=== PATIENT | male | born 1960 | race Caucasian/White ===

== ENCOUNTER → 2019-09-15 | Outpatient (CLI) | payer BC ==
--- NOTE | 2019-09-15 09:44 | FL ---
Barium swallow HISTORY: Dysphagia Patient was given high density barium to drink. 16 images obtained, 1 minute 1 second fluoroscopy time The esophageal motility and shows disorganized contractions, there is no obstruction at the level of the patient's gastric sleeve. Degenerative disc changes are noted in the cervical spine. No extrinsic or intrinsic mass is evident. Some reflux from the distal esophagus noted during exam into the more proximal esophagus. Narrowing at the midthoracic esophagus is not thought to persist. IMPRESSION: Disorganized esophageal contractions.
== END | disposition home or self-care (01) ==
LOC: RADUSWWP 08:46
PROVIDERS: ATTEND Family Medicine
DX: K22.8 Other specified diseases of esophagus (principal)
CPT/HCPCS: 74220

== ENCOUNTER 2019-10-02 09:41 | Observation (INO) | payer BC ==
[2019-10-02] MEDS ORDERED: ASPIRIN 81 MG PO STA (10:05)
[2019-10-02] MEDS ORDERED: NITROGLYCERIN SL TABS 0.4 MG TAB SUBLINGUAL STA (10:05)
[2019-10-02] MEDS ORDERED: SODIUM CHLORIDE 0.9% 1,000 ML IV STA (10:05)
[2019-10-02 10:23] LABS: Basophils % (A) 0 %; Eosinophils # (A) 0.3 k/uL (0-0.7); Eosinophils % (A) 3 %; HCT 49.1 % (39.0-53.0); HGB 15.8 gm/dL (13.0-17.5); Lymphocytes # (A) 1.3 k/uL (1.0-4.8); Lymphocytes % (A) 13 %; MCH 28.9 pg (25.0-35.0); MCHC 32.2 g/dL (31.0-37.0); Mean Platelet Volume 7.8; Monocytes # (A) 0.6 k/uL (0-1.0); Monocytes % (A) 6 %; Neutrophils # (A) 7.4 k/uL (1.3-7.7); Neutrophils % (A) 76 %; Platelet Count 183 k/uL (150-450); RBC 5.46 m/uL (4.30-5.90); RDW 13.8 % (11.5-15.5); WBC 9.8 k/uL (3.8-10.6)
[2019-10-02] MEDS ORDERED: MORPHINE SULFATE 2 MG/ML SYRINGE IVP STA (10:25)
--- NOTE | 2019-10-02 10:31 | ED ---
Chest Pain HPI - General Chief Complaint: Chest Pain Stated Complaint: Chest Pain Time Seen by Provider: 10/02/19 09:52 Source: patient, RN notes reviewed, old records reviewed Mode of arrival: wheelchair Limitations: no limitations - History of Present Illness Initial Comments: Morales is a 59-year-old male history of hypertension and smoker presents for his friends today with onset of chest discomfort and pain on bilateral arms turning half hour prior to arrival to emergency department. Patient states that he's had positive family history of heart disease. He states he's had no previous known history himself. Patient states that he has no history of diabetes or cholesterol problems. Patient states that he has no significant nausea or abdominal pain. Reports no coughing. - Related Data Allergies Allergy/AdvReac Type Severity Reaction Status Date / Time No Known Allergies Allergy Verified 10/02/19 09:49 Review of Systems ROS Statement: Those systems with pertinent positive or pertinent negative responses have been documented in the HPI. ROS Other: All systems not noted in ROS Statement are negative. EKG Findings - EKG Comments: EKG Findings:: EKG performed at 953 shows normal sinus rhythm left axis deviation. Nonspecific ST and T abnormalities. Prolonged QT. Abnormal EKG. Ventricular rate of 91 bpm. Verbal is 188 ms. QRS ration is 94 ms. QT QTc is 398/49 ms. Past Medical History Past Medical History: Hypertension History of Any Multi-Drug Resistant Organisms: None Reported Past Surgical History: Appendectomy, Bariatric Surgery, Hernia Repair Additional Past Surgical History / Comment(s): gastric sleeve Past Psychological History: No Psychological Hx Reported Smoking Status: Current every day smoker Past Alcohol Use History: Occasional Past Drug Use History: Marijuana General Exam - General Exam Comments Initial Comments: Asians morbidly obese 59-year-old male. Patient appears in [id number] discomfort. Limitations: no limitations General appearance: alert, in no apparent distress Head exam: Present: atraumatic, normocephalic, normal inspection Eye exam: Present: normal appearance, PERRL, EOMI. Absent: scleral icterus, conjunctival injection, periorbital swelling ENT exam: Present: normal exam, mucous membranes moist Neck exam: Present: normal inspection. Absent: tenderness, meningismus, lymphadenopathy Respiratory exam: Present: wheezes, other (wheezing). Absent: normal lung sounds bilaterally, respiratory distress, rales, rhonchi, stridor Cardiovascular Exam: Present: regular rate, normal rhythm, normal heart sounds. Absent: systolic murmur, diastolic murmur, rubs, gallop, clicks GI/Abdominal exam: Present: soft, normal bowel sounds. Absent: distended, tenderness, guarding, rebound, rigid Extremities exam: Present: normal inspection, full ROM, normal capillary refill. Absent: tenderness, pedal edema, joint swelling, calf tenderness Back exam: Present: normal inspection Neurological exam: Present: alert, oriented X3, CN II-XII intact Psychiatric exam: Present: normal affect Skin exam: Present: warm, dry, intact, normal color. Absent: rash Course Vital Signs 10/02/19 09:45 Temperature 98.3 F Pulse Rate 89 Respiratory 18 Rate Blood Pressure 178/95 O2 Sat by Pulse 96 Oximetry Chest Pain [facility] Patient's 59-year-old male presents for return and stay with one hour of substernal chest pain free Patient on both arms starting 30 minutes prior to arrival to the emergency department. He is morbidly obese, smoker with a history of hypertension. Patient's initial EKG did show some ST changes. Is given IV fluids, aspirin and nitro. He did report relief of the chest pain with nitro. He does have diffuse wheezing with a history of smoking and discuss likely chronic. At this time Patient has no cough. Patient started on IV heparin and nitro paste with chest pain relieved with nitro concern for unstable angina. Pj the Patient to [facility] physician with consult to cardiology. Chest x-ray shows diffuse interstitial density. Correlate for bronchitis chronic asthma or atypical pneumonias. No focal infiltrate. Repeat EKG at 10:26 AM showed normal sinus rhythm with left anterior fascicular block. Once ST and T-wave abnormality prolonged QT. Ventricular rate of 85 bpm. NE intervals 184 ms. QRS duration is 92 ms. QT QTc is 44/480 ms. Secondary repeat EKG at 1051 showed normal sinus rhythm with left axis deviation of specific T wave abnormality again. The degree of 80 bpm. Verbal is 172 ms. Temperature shows 90 ms. QT QTc is 420/4 and 93 ms. Critical Care Time Critical Care Time: Yes Total Critical Care Time: 35 Critical Care Time: 35 minutes of critical care time was used by vitamin Patient interpreting EKG is instructed Patient on IV heparin for unstable angina. Disposition Clinical Impression: Unstable angina, Hypertension, Smoker, Wheezing Disposition: ADMITTED IP TO THIS HOSP Condition: Stable Is patient prescribed a controlled substance at d/c from ED?: No Referrals: Elsa Wadsworth MD [Primary Care Provider] - 1-2 days Time of Disposition: 11:27
[2019-10-02 10:32] LABS: ALT 18 U/L (4-49); AST 21 U/L (17-59); African American GFR (CKD) >90 (>60 ml/min/1.73 sqM); Albumin 3.9 g/dL (3.5-5.0); Alkaline Phosphatase 104 U/L (38-126); Amylase 50 U/L (30-110); Anion Gap 5 mmol/L; Blood Urea Nitrogen 24 mg/dL (9-20); Calcium 8.7 mg/dL (8.4-10.2); Carbon Dioxide 31 mmol/L (22-30); Chloride 104 mmol/L (98-107); Glucose 117 mg/dL (74-99); INR 0.9 (<1.2); Non-African American GFR(CKD) >90 (>60 ml/min/1.73 sqM); Potassium 3.9 mmol/L (3.5-5.1); Prothrombin Time 9.7 sec (9.0-12.0); Sodium 140 mmol/L (137-145); Total Bilirubin 0.7 mg/dL (0.2-1.3); Total Protein 6.9 g/dL (6.3-8.2)
--- NOTE | 2019-10-02 10:54 | XR ---
EXAMINATION TYPE: XR chest 2V DATE OF EXAM: 10/02/2019 COMPARISON: None HISTORY: 59-year-old male with chest pain TECHNIQUE: PA and lateral views FINDINGS: The heart is upper limits of normal in size. Mild interstitial density. No consolidation or pleural e ffusion. IMPRESSION: Diffuse interstitial density. Correlate for bronchitis, chronic asthma, or atypical pneumonias. No fo niru infiltrate.
[2019-10-02] MEDS ORDERED: NITROGLYCERIN SL TABS 0.4 MG TAB SUBLINGUAL PRN ×3 (10:56→20:31)
[2019-10-02] MEDS ORDERED: HEPARIN SODIUM,PORCINE 5,000 UNIT/ML 1 ML VIAL IV ONE (10:56)
[2019-10-02] MEDS ORDERED: HEPARIN SOD,PORK IN 0.45% NACL 25,000 UNIT in 0.45% NACL 1 250ML.BAG IV SCH (11:00)
[2019-10-02] MEDS ORDERED: NITROGLYCERIN OINT 1 INCH/GM PACKET TOPICAL STA (11:17)
[2019-10-02] MEDS ORDERED: MORPHINE SULFATE 4 MG/ML SYRINGE IV PRN (11:28)
--- NOTE | 2019-10-02 13:28 | P.HPIM ---
History of Present Illness This is a pleasant 59 years old male with past medical history of hypertension and cigarette smoker and marijuana smoker. Presents because of chest pain Also patient has no shortness of breath Hemodynamically stable. Labs including CBC, BMP, liver enzymes, INR are unremarkable. Troponins first one is negative at less than 0.012, second troponin is elevated at 0.047 EKG showing normal sinus rhythm at 80 bpm, mild ST depression in V1-V3, QTC 493. Chest x-ray: No acute process. However there is diffuse interstitial density study correlated for bronchitis, chronic asthma, atypical pneumonia. No focal infiltrates He is already started on aspirin 325 mg and heparin drip. Review of Systems CONSTITUTIONAL: No fever, no malaise, no fatigue. HEENT: No recent visual problems or hearing problems. Denied any sore throat. CARDIOVASCULAR: No orthopnea, PND, no palpitations, no syncope. PULMONARY: No shortness of breath, no cough, no hemoptysis. GASTROINTESTINAL: No diarrhea, no nausea, no vomiting, no abdominal pain. Normoactive bowel sounds. NEUROLOGICAL: No headaches, no weakness, no numbness. HEMATOLOGICAL: Denies any bleeding or petechiae. GENITOURINARY: Denies any burning micturition, frequency, or urgency. MUSCULOSKELETAL/RHEUMATOLOGICAL: Denies any joint pain, swelling, or any muscle pain. ENDOCRINE: Denies any polyuria or polydipsia. Past Medical History Past Medical History: Hypertension History of Any Multi-Drug Resistant Organisms: None Reported Past Surgical History: Appendectomy, Bariatric Surgery, Hernia Repair Additional Past Surgical History / Comment(s): gastric sleeve Past Psychological History: No Psychological Hx Reported Smoking Status: Current every day smoker Past Alcohol Use History: Occasional Past Drug Use History: Marijuana Medications and Allergies Home Medications Medication Instructions Recorded Confirmed Type Losartan/Hydrochlorothiazide 1 tab PO HS 10/02/19 10/02/19 History [Losartan-Hctz 100-25 mg Tab] Omeprazole 40 mg PO HS 10/02/19 10/02/19 History Verapamil HCl [Verapamil ER] 120 mg PO DAILY 10/02/19 10/02/19 History Allergies Allergy/AdvReac Type Severity Reaction Status Date / Time No Known Allergies Allergy Verified 10/02/19 11:39 Physical Exam Vitals: Vital Signs Temp Pulse Resp BP BP Pulse Ox 10/02/19 12:00 97.7 F 16 145/89 97 10/02/19 11:42 98.3 F 73 18 130/67 95 10/02/19 10:49 73 18 130/67 95 10/02/19 09:49 18 10/02/19 09:45 98.3 F 89 18 178/95 96 Intake and Output 10/01/19 10/02/19 10/02/19 22:59 06:59 14:59 Intake Total 400 Balance 400 Intake: Oral 400 Other: Weight 167.829 kg -GENERAL: The patient is alert and oriented x3, not in any acute distress. Obese HEENT: Pupils are round and equally reacting to light. EOMI. No scleral icterus. No conjunctival pallor. Normocephalic, atraumatic. No pharyngeal erythema. No thyromegaly. CARDIOVASCULAR: S1 and S2 present. No murmurs, rubs, or gallops. PULMONARY: Chest is clear to auscultation, no wheezing or crackles. ABDOMEN: Soft, nontender, nondistended, normoactive bowel sounds. No palpable organomegaly. MUSCULOSKELETAL: No joint swelling or deformity. EXTREMITIES: No cyanosis, clubbing, or pedal edema. NEUROLOGICAL: Gross neurological examination did not reveal any focal deficits. SKIN: No rashes. No petechiae Results CBC & Chem 7: 10/02/19 09:53 10/02/19 09:53 Labs: Abnormal Lab Results - Last 24 Hours (Table) 10/02/19 10/02/19 Range/Units 09:53 11:55 Carbon Dioxide 31 H (22-30) mmol/L BUN 24 H (9-20) mg/dL Glucose 117 H (74-99) mg/dL Troponin I 0.047 H* (0.000-0.034) ng/mL Thrombosis Risk Factor Assmnt - Choose All That Apply Each Factor Represents 1 point: Obesity (BMI >25) Other Risk Factors: No Other congenital or acquired thrombophilia - If yes, enter type in comment: No Thrombosis Risk Factor Assessment Total Risk Factor Score: 1 Thrombosis Risk Factor Assessment Level: Low Risk Assessment and Plan Assessment: Non-STEMI Nicotine dependence Morbid obesity Substance abuse including marijuana Morbid obesity with BMI 51 Plan: This is a pleasant 59 years old male who presents with non-STEMI, also with re active bronchitis versus atypical pneumonia. Continue with heparin drip, continue with aspirin, cardiology consult Who are aware of the patient. Patient counseled about quit smoking, he declined nicotine patch. Labs and medication were reviewed.. Continue same treatment. Continue with symptomatic treatment. Resume home medication. Monitor lytes and vitals. DVT and GI prophylaxis. Further recommendations of the clinical course of the patient DVT prophylaxis: heparin GI Prophylaxis: Pepcid Prognosis is guarded
[2019-10-02] MEDS ORDERED: DOXYCYCLINE 100 MG CAP PO SCH (13:30)
[2019-10-02] MEDS ORDERED: SODIUM CHLORIDE 0.9% 1,000 ML in EMPTY BAG 1 BAG IV ONE (14:10)
[2019-10-02] MEDS ORDERED: ATORVASTATIN 80 MG TAB PO STA (14:10)
[2019-10-02] MEDS ORDERED: ALPRAZolam 0.5 MG TAB PO PRN (14:10)
[2019-10-02] MEDS ORDERED: ASPIRIN 325 MG TAB PO STA (14:10)
[2019-10-02] MEDS ORDERED: ALPRAZolam 0.25 MG TAB PO PRN (14:10)
[2019-10-02] MEDS: IPRATROPIUM-ALBUTEROL 3 ML NEB INHALATION PRN (14:34)
[2019-10-02] MEDS ORDERED: ACETAMINOPHEN TAB 325 MG TAB PO PRN (14:34)
[2019-10-02 14:37] LABS: Cholesterol 138 mg/dL (<200); HDL Cholesterol 31 mg/dL (40-60); LDL Cholesterol,Calculated 95 mg/dL (0-99); Triglycerides 62 mg/dL (<150)
[2019-10-02] MEDS ORDERED: NITROGLYCERIN OINT 1 INCH/GM PACKET TOPICAL SCH (16:00)
[2019-10-02] MEDS ORDERED: HEPARIN SODIUM,PORCINE 5,000 UNIT/ML 1 ML VIAL IV PRN (18:24)
[2019-10-02 18:48] LABS: Glucose,Whole Blood 109 mg/dL (75-99)
[2019-10-02] MEDS ORDERED: HEPARIN SODIUM 1,000 UN/ML (10ML VL) ONE (19:06)
[2019-10-02] MEDS ORDERED: fentaNYL (PF) 50 MCG/ML 2 ML AMP ONE (19:06)
[2019-10-02] MEDS ORDERED: VERAPAMIL 2.5 MG/ML 2 ML AMP ONE (19:06)
[2019-10-02] MEDS ORDERED: MIDAZOLAM 2 MG/2 ML VIAL IVP ONE (19:13)
[2019-10-02] MEDS ORDERED: fentaNYL (PF) 50 MCG/ML 2 ML AMP IVP ONE (19:13)
[2019-10-02] MEDS ORDERED: LIDOCAINE 1% INJ 10MG/ML (20 ML MDV) SQ ONE (19:13)
[2019-10-02] MEDS ORDERED: IV FLUID CONTINUATION 400 ML IV ONE (19:13)
[2019-10-02] MEDS ORDERED: TICAGRELOR 90 MG TAB ONE (19:29)
[2019-10-02] MEDS ORDERED: BIVALIRUDIN 250 MG in SODIUM CHLORIDE 0.9% 50 ML IV ONE ×2 (19:32→19:37)
[2019-10-02] MEDS ORDERED: TICAGRELOR 90 MG TAB PO ONE (19:32)
[2019-10-02] MEDS ORDERED: BIVALIRUDIN BOLUS 250 MG/50 ML IV ONE (19:32)
[2019-10-02] MEDS ORDERED: IOPAMIDOL-370 100ML BTL INJ ONE ×3 (20:00→20:17)
[2019-10-02] MEDS ORDERED: IOPAMIDOL-370 125ML BTL INJ ONE (20:00)
[2019-10-02] MEDS ORDERED: RX INFO: IV CONTRAST WAS GIVEN 1 EACH MISC MISCELLANE PRN (20:31)
[2019-10-02] MEDS ORDERED: MAG HYDROX/AL HYDROX/SIMETH 30 ML CUP PO PRN (20:31)
[2019-10-02] MEDS ORDERED: ATROPINE SULFATE 0.1 MG/ML 10ML SYRINGE IV PRN (20:31)
[2019-10-02] MEDS ORDERED: ZOLPIDEM 5 MG TAB PO PRN (20:31)
[2019-10-02] MEDS ORDERED: SODIUM CHLORIDE 0.9% 1,000 ML IV SCH (20:45)
[2019-10-02] MEDS ORDERED: PANTOPRAZOLE 40 MG TABLET PO SCH (21:00)
[2019-10-02] MEDS: METOPROLOL TARTRATE 25 MG TAB PO SCH (21:40)
[2019-10-02] MEDS: LOSARTAN 50 MG TAB PO SCH (21:41)
[2019-10-02] MEDS: FAMOTIDINE 20 MG/2 ML VIAL IV SCH (21:41)
[2019-10-02] MEDS: TICAGRELOR 90 MG TAB PO SCH (21:41)
--- NOTE | 2019-10-03 00:55 | CONS ---
CONSULTATION Mr. Martinez is a 59-year-old male with known history of hypertension, chronic tobacco use, who presented to the emergency room with symptoms of chest discomfort. The discomfort occurred at rest without any associated symptoms and without any radiation. His discomfort is much better at this time. He is average in his exercise tolerance, has no exertional chest pain on a regular basis. His breathing has been stable. He has no dizziness, palpitation, or syncope. No PND, orthopnea, or peripheral edema. He has no prior cardiac history or recent cardiac workup. He has symptoms of wheezing and he is scheduled to undergo upper endoscopy for further evaluation. His coronary risk factors are remarkable for hypertension. He is a smoker about 3/4 of a pack a day. MEDICATION: His medications at home include verapamil 120 mg daily, losartan HCT 100/25 mg daily, and omeprazole. REVIEW OF SYSTEMS: RESPIRATORY SYSTEM: He has wheezing. No recent cough. No documented obstructive lung disease. GI SYSTEM: No recent GI bleeding. No peptic ulcer disease. SYSTEM: No dysuria or hematuria. NERVOUS SYSTEM: No stroke or seizure. PHYSICAL EXAMINATION: A 59-year-old male, alert, oriented, in no apparent distress, obese. Blood pressure running in the 130s to 170s with the heart rate in the 70s. HEAD: Normocephalic. EYES: Sclerae anicteric. NECK: Good carotid upstroke. No bruit. No jugular venous distention. LUNGS: With decreased air exchange, no wheezes. HEART: Regular rate and rhythm. S1, S2. No S3. No rub with a systolic ejection murmur heard at the base. No diastolic murmur. ABDOMEN: Soft, obese, nontender. EXTREMITIES: No significant edema. LAB DATA: Lab data revealed a BUN and creatinine 24 and 0.85, potassium 3.9. Troponin less than 0.012, 0.047. NT proBNP of 70. Hemoglobin of 15.8, white blood cell of 9.8. EKG revealed a sinus mechanism normal axis and intervals with ST-segment depression in leads V2, V3 and V4 with mild T-wave inversion. Chest x-ray shows probable bronchitis. IMPRESSION: 1. Evidence of non ST-segment elevation myocardial infarction, could be in the left circumflex territory. 2. History of hypertension. 3. Obesity. 4. Chronic tobacco use. RECOMMENDATION: I have recommended to proceed with cardiac catheterization. The procedure as well as the risks and the complications were discussed with the patient and his and they are in full understanding and agreement. The patient just had lunch and his discomfort almost resolved. I will tentatively schedule him for tomorrow unless he has further symptoms. In the meantime, I will obtain echocardiogram with Doppler. He will be continued on IV heparin. I will add to his regimen nitrate, beta lesli, and statin and he will be continued on his angiotensin receptor lesli. Depending on the results of testing, further recommendation will be made. Thank you for this consult. We will follow with you. DENNISL / IJN: [id number] /
--- NOTE | 2019-10-03 02:58 | CC ---
CARDIAC CATHETERIZATION REPORT Mr. Martinez is a 59-year-old male with known history of chronic tobacco use as well as hypertension, who presented with symptoms of chest pain and evidence of non ST- segment elevation myocardial infarction. He had recurrent pain. In view of that, recommendation was made regarding cardiac catheterization. The procedure as well as the risks and the complications were discussed with the patient who is in full understanding and agreement. PROCEDURE: Patient was brought to the recyclable materials distributor. He was in a semi-sedated state after receiving fentanyl and Benadryl. He was prepped and draped in conventional fashion. Using Xylocaine anesthesia in the Seldinger technique, a 6-Congolese sheath was introduced in the right radial artery. Selective right and left coronary angiography performed using 5-Congolese, 3.5 bend right Racheal catheter and a 6-Congolese FL3.5 guiding catheter. Images of the coronary artery including hemiaxial views obtained. Following that, angioplasty and stenting was performed. Following that, the guide catheter was introduced into the left ventricle and pressures were calculated. Following that, catheter and sheaths were removed. Hemostasis was obtained with deployment of a TR band. There was no immediate complication. Patient was returned to his room in stable condition. There was no immediate complication. Of note, the patient received intra- arterial verapamil. FINDINGS: LEFT MAIN: This is a large-sized vessel bifurcating in left circumflex, left anterior descending artery. Left main coronary artery has no evidence of high-grade stenosis. LEFT ANTERIOR DESCENDING ARTERY: This is a large-sized vessel reaching to the apex with a wraparound apex segment giving rise to a large diagonal branch. Right at the takeoff of the diagonal branch, there is a 90% eccentric lesion. The rest of the vessel has no high-grade stenosis. LEFT CIRCUMFLEX: This is a large nondominant vessel giving rise to 2 obtuse marginal branches. The second obtuse marginal branch has a long area of stenosis up to 99%. The rest of the vessel has no high-grade stenosis. RIGHT CORONARY ARTERY: This is a large dominant vessel tortuous bifurcating distally PDA and posterolateral segment and branches. The mid right coronary artery has an eccentric lesion of 50% to 60%. The rest of the vessel has no high-grade stenosis. LEFT VENTRICULOGRAM: Left ventriculogram is not performed. HEMODYNAMICS: There was no gradient across the aortic valve. The left ventricular end- diastolic pressure was 14 to 16 mmHg. CONCLUSION: 1. Critical stenosis in the second obtuse marginal branch. 2. Severe stenosis in the mid left anterior descending artery. 3. Moderate disease in the mid right coronary artery. RECOMMENDATION: In view of finding anatomy, I recommend proceeding with angioplasty and stenting of the left circumflex and the LAD. The procedures, risks, and complications were discussed with the patient, who was in full understanding and agreement. MMJACK / GAYN: [id number] / MTDKatt
--- NOTE | 2019-10-03 03:01 | PTCA ---
PERCUTANEOUSTRANS CORORONARY ANGIOGRAPHY Mr. Martinez is a 59-year-old male who presented with non ST-segment elevation myocardial infarction, had recurrent chest discomfort. In view of that, recommendation was made regarding angioplasty and stenting. The procedure as well as the risks and the complications were discussed with the patient who is in full understanding and agreement. PROCEDURE: Using the 6-Bruneian FL3.5 guiding catheter after cannulating the left main, a 0.014 balanced medium weight J-wire was advanced and positioned in first obtuse marginal branch and another 0.014 balanced medium weight J-wire was advanced and positioned in the second obtuse marginal branch. Subsequently, a 2.5 x 12 mm Trek balloon was advanced and 2 inflations at 8 atmospheres were done. Following that, the balloon was removed and a 2.25 x 23 mm Xience Rosa stent was advanced, deployed and postdilated at 16 atmospheres. Following that, the balloon was removed and a 2.75 x 15 mm NC Emerge balloon was advanced and inflation of proximal segment of the stent at a maximum of 14 atmospheres was done. Following that, the balloon was removed. Images were obtained, repeated. Those images reveal stable successful stenting. At that point, the wire was withdrawn and advanced into the LAD and positioned in distal LAD and a 3.5 x 15 mm Xience Rosa stent was advanced, deployed and postdilated to 16 atmospheres. Following that, the balloon was removed and a 4.0 x 12 mm NC Emerge balloon was advanced and one inflation at 14 atmospheres was done. After the last inflation, after appropriate wait, the balloon and guide wire withdrawn back in the guiding catheter. Images were obtained, repeated. Those images reveal stable successful stenting. At that point, the guiding catheter, the balloon and the guidewire were removed. Left ventricular end- diastolic pressure was calculated using the guiding catheter. Following that, catheter and sheath were removed. Hemostasis was obtained with deployment of a TR band. There was no immediate complication. Patient was returned to his room in stable condition. Of note, the patient had chest discomfort and EKG changes with the LAD inflation that resolved at the end of the procedure. He received Angiomax per protocol as well as oral loading dose of Brilinta. RESULTS: 1. Successful stenting of the second obtuse marginal branch with reduction of stenosis from 99% to 0%. 2. Successful stenting of the mid left anterior descending artery with reduction of stenosis from 90% to less than 5%. RECOMMENDATIONS: Patient will be continued on aspirin, Brilinta, statin and beta lesli. The importance of dual antiplatelet treatment was discussed with the patient and his family and are in full understanding and agreement. Duration of procedure is 70 minutes. BALBINA / ANAI: [id number] /
[2019-10-03] MEDS: IPRATROPIUM-ALBUTEROL 3 ML NEB INHALATION PRN ×2 (06:10→10:55)
--- NOTE | 2019-10-03 07:28 | PN ---
PROGRESS NOTE Mr. Martinez is a 59-year-old male who presented with symptoms of chest discomfort and evidence of non ST-segment elevation myocardial infarction, underwent cardiac catheterization was found to have critical stenosis in the obtuse marginal branch 2 and the mid LAD, underwent stenting of both vessels. He had moderate disease in the right coronary artery. He is doing well this morning. He is denying any chest pain. No dizziness. No palpitation. His breathing is stable. He continued to be on aspirin once a day, Brilinta 90 mg twice a day, Lipitor 40 mg daily, losartan 50 mg twice a day and metoprolol tartrate 25 mg twice a day. PHYSICAL EXAMINATION: Blood pressure 134/80 with the heart rate in the 70s. LUNGS: Clear. HEART: Regular rate and rhythm. S1, S2. No S3. No rub. ABDOMEN: Soft, obese, nontender. EXTREMITIES: Trace edema. Right radial pulse intact. LAB DATA: Pending. IMPRESSION: 1. Status post non ST-segment elevation myocardial infarction. 2. Status post stenting of the obtuse marginal branch 2 and the mid LAD with moderate disease in the right coronary artery. 3. Hypertension. 4. Chronic tobacco use. 5. Obesity. RECOMMENDATION: Patient will be discharged home today and followed as an outpatient. The importance of smoking cessation as well as weight loss was discussed with the patient. MMOMAYRAL / GAYN: [id number] /
[2019-10-03 08:03] VITALS: TEMP 98.2
[2019-10-03 08:36] LABS: African American GFR (CKD) >90 (>60 ml/min/1.73 sqM); Anion Gap 4 mmol/L; Blood Urea Nitrogen 17 mg/dL (9-20); Calcium 8.5 mg/dL (8.4-10.2); Carbon Dioxide 30 mmol/L (22-30); Chloride 104 mmol/L (98-107); Cholesterol 118 mg/dL (<200); Glucose 108 mg/dL (74-99); HDL Cholesterol 29 mg/dL (40-60); LDL Cholesterol,Calculated 70 mg/dL (0-99); Non-African American GFR(CKD) >90 (>60 ml/min/1.73 sqM); Potassium 3.9 mmol/L (3.5-5.1); Sodium 138 mmol/L (137-145); Triglycerides 94 mg/dL (<150)
[2019-10-03] MEDS: METOPROLOL TARTRATE 25 MG TAB PO SCH (08:48)
[2019-10-03] MEDS: FAMOTIDINE 20 MG/2 ML VIAL IV SCH (08:49)
[2019-10-03] MEDS: LOSARTAN 50 MG TAB PO SCH (08:49)
[2019-10-03] MEDS: TICAGRELOR 90 MG TAB PO SCH (08:49)
[2019-10-03] MEDS ORDERED: ASPIRIN 81 MG PO SCH (09:00)
[2019-10-03] MEDS ORDERED: ATORVASTATIN 40 MG TAB PO SCH (09:00)
[2019-10-03] MEDS ORDERED: ASPIRIN 325 MG TAB PO SCH (09:00)
--- NOTE | 2019-10-03 10:16 | ECHOF ---
Referral Reason:mi MEASUREMENTS -------- HEIGHT: 182.9 cm WEIGHT: 167.8 kg BP: 134/88 IVSd: 1.3 cm (0.6 - 1.1) LVIDd: 5.2 cm (3.9 - 5.3) LVPWd: 1.5 cm (0.6 - 1.1) EDV(Teich): 131 ml IVSs: 1.8 cm LVIDs: 5.0 cm LVPWs: 1.7 cm %IVS Thck: 34 % ESV(Teich): 120 ml EF(Teich): 8 % %FS: 4 % SV(Teich): 11 ml MV EXCURSION: 19.089 mm (> 18.000) MV EF SLOPE: 81 mm/s (70 - 150) EPSS: 0.9 cm MV E Charanjit: 0.60 m/s MV DecT: 182 ms MV Dec [place]: 3.3 m/s MV A Charanjit: 0.76 m/s MV E/A Ratio: 0.79 MV PHT: 53 ms FINDINGS -------- Morbid Obesity The left ventricular size is normal. There is mild concentric left ventricular hypertrophy. Overa ll left ventricular systolic function is mild-moderately impaired with, an EF between 40 - 45 %. Po sterior hypokinesis Inferior Hypokinesis The right ventricle is normal in size. The left atrial size is normal. The right atrial size is normal. 5.0mg OF Lumason UTLIZED: 2 OR MORE WALL SEGMENTS NOT VISUALIZED. The aortic valve was not well visualized. Mild mitral regurgitation is present. The tricuspid valve was not well visualized. Unable to estimate RVSP due to inadequate TR jet spect ral doppler profile. The pulmonic valve was not well visualized. The aortic root size is normal. There is no pericardial effusion. CONCLUSIONS -------- 1. Morbid Obesity 2. The left ventricular size is normal. 3. There is mild concentric left ventricular hypertrophy. 4. Overall left ventricular systolic function is mild-moderately impaired with, an EF between 40 - 45 %. 5. Posterior hypokinesis 6. Inferior Hypokinesis 7. The right ventricle is normal in size. 8. The left atrial size is normal. 9. The right atrial size is normal. 10. 5.0mg OF Lumason UTLIZED: 2 OR MORE WALL SEGMENTS NOT VISUALIZED. 11. The aortic valve was not well visualized. 12. Mild mitral regurgitation is present. 13. The tricuspid valve was not well visualized. 14. Unable to estimate RVSP due to inadequate TR jet spectral doppler profile. 15. The pulmonic valve was not well visualized. FITTING ROOM OPERATOR: Tierra Aldrich RDCS
[2019-10-03 11:38] VITALS: BP 146/94; PULSE 75; RESP 16
[2019-10-03 13:16] VITALS: BMI 51.5
--- NOTE | 2019-10-03 14:01 | P.DS ---
Providers Date of admission: 10/02/19 11:16 Expected date of discharge: 10/03/19 Attending physician: Layo Marina MD Consults: 10/02/19 11:28 Consult Physician Urgent Consulting Provider: Kimmy Hernandez Consult Reason/Comments: Unstable angina Do you want consulting provider notified?: Yes 10/02/19 20:31 Consult Physician Routine Consulting Provider: [facility] Consult Reason/Comments: Post Interventional patient Do you want consulting provider notified?: Already Contacted Primary care physician: Elsa Wadsworth Hospital Course: Final Diagnoses: Acute non-STEMI, status post stenting of both obtuse marginal branch 2 and the mid LAD with moderate disease of the RCA. EF between 40-45%. Family history of CAD. Hypertension Ongoing nicotine dependence, marijuana use Morbid obesity, BMI 51.6 Gastroesophageal reflux disease, further workup as outpatient in progress History of gastric sleeve Possible acute bronchitis Hospital course a 59-year-old gentleman admitted with non-STEMI, status post cardiac catheterization with stenting of both obtuse marginal, mid LAD with moderate disease of the RCA. Tolerated procedure well. Denies chest pain, pa lpitations or shortness of breath. Denies lightheadedness, dizziness or focal deficits. Cleared by cardiology for discharge. Patient is being discharged home in stable condition with guarded prognosis. The impression and plan of care has been dictated as directed. : I performed a history and examination of this patient, discussed the same with the dictator. I agree with the dictator's note ,documented as a scribe. Any additional findings or plans will be noted. Patient Condition at Discharge: Stable Plan - Discharge Summary Discharge Rx Participant: No New Discharge Prescriptions: New Aspirin 81 mg PO DAILY chew Ticagrelor [Brilinta] 90 mg PO BID #180 tab Atorvastatin [Lipitor] 40 mg PO DAILY #90 tab Metoprolol Tartrate [Lopressor] 25 mg PO BID #180 tab Nitroglycerin Sl Tabs [Nitrostat] 0.4 mg SUBLINGUAL Q5M PRN #25 tab PRN Reason: Chest Pain Azithromycin [Zithromax Z-pack] 0 mg PO DIRECTED #6 tab Losartan [Cozaar] 50 mg PO BID #60 tab Continue Omeprazole 40 mg PO HS Discontinued Losartan/Hydrochlorothiazide [Losartan-Hctz 100-25 mg Tab] 1 tab PO HS Verapamil HCl [Verapamil ER] 120 mg PO DAILY Discharge Medication List Omeprazole 40 mg PO HS 10/02/19 [History] Aspirin 81 mg PO DAILY chew 10/03/19 [Rx] Atorvastatin [Lipitor] 40 mg PO DAILY #90 tab 10/03/19 [Rx] Azithromycin [Zithromax Z-pack] 0 mg PO DIRECTED #6 tab 10/03/19 [Rx] Losartan [Cozaar] 50 mg PO BID #60 tab 10/03/19 [Rx] Metoprolol Tartrate [Lopressor] 25 mg PO BID #180 tab 10/03/19 [Rx] Nitroglycerin Sl Tabs [Nitrostat] 0.4 mg SUBLINGUAL Q5M PRN #25 tab 10/03/19 [Rx] Ticagrelor [Brilinta] 90 mg PO BID #180 tab 10/03/19 [Rx] Follow up Appointment(s)/Referral(s): Kimmy Hernandez MD [STAFF PHYSICIAN] - 1 Week (Dr Hernandez's office will call with appointment time) Elsa Wadsworth MD [Primary Care Provider] - 10/07/19 11:30 am Ambulatory/Diagnostic Orders: Complete Blood Count w/diff [LAB.AMB] Time Frame: 3 Days, Location: None Selected Patient Instructions/Handouts: *Surgery [facility] - After Heart Catheterization - Certified Surgical Technologist Instructions, Heart Attack (GEN), How to Stop Smoking (DC), Heart Healthy Diet (DC), Coronary Intravascular Stent Placement (DC), After Radial Heart Catheterization (GEN) Activity/Diet/Wound Care/Special Instructions: no smoking
== END 2019-10-03 14:00 ==
LOC: EC 09:41 → 3NCARDOBS 11:16
PROVIDERS: ADMIT Family Medicine; ATTEND Family Medicine
DX: I21.4 Non-ST elevation (NSTEMI) myocardial infarction (principal); I25.110 Atherosclerotic heart disease of native coronary artery with unstable angina pectoris; I10 Essential (primary) hypertension; F17.210 Nicotine dependence, cigarettes, uncomplicated; K21.9 Gastro-esophageal reflux disease without esophagitis; J98.4 Other disorders of lung; F19.10 Other psychoactive substance abuse, uncomplicated; M79.602 Pain in left arm; M79.601 Pain in right arm; Z90.49 Acquired absence of other specified parts of digestive tract; Z98.84 Bariatric surgery status; E66.01 Morbid (severe) obesity due to excess calories; Z68.43 Body mass index [BMI] 50.0-59.9, adult; Z79.899 Other long term (current) drug therapy; Z82.49 Family history of ischemic heart disease and other diseases of the circulatory system
CPT/HCPCS: 93005 ×2; 96366; 96376; 96365; 96375; 99291; 36415; 94640 ×3; 93306; 93458; 83880; 80061 ×2; 80053; 80048; 82150; 83690; 83735; 84484; 85025; 85610; 85730; 71046; G0378 ×2; C9600; C9601; C1769 ×3; C1887; C1725; C1874; C1894; J2250; J2270 ×2; J1644 ×2; J2001; J3010; J0583; Q9950; Q9967 ×2

== ENCOUNTER → 2019-12-22 | Outpatient (CLI) | payer BC ==
--- NOTE | 2019-12-22 14:05 | CONS ---
CONSULTATION DATE OF SERVICE: 12/22/2019 A 59-year-old gentleman who has been evaluated in the [facility] for possible obstructive sleep apnea-hypopnea syndrome. 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 Subsequently, he sleeps during the weekdays from 11 a.m. until 3:30 pm and on weekends from 11 until 2 a.m. until 6 a.m. No problems with falling asleep, although he has TV in bedroom. He sleeps on the side position and in the chair. He wakes up from sleep up to 3 times according to him without any nocturia. No history of hypnagogic hallucinations, sleep paralysis or cataplexy. [place] Sleepiness Scale is 6. PAST MEDICAL HISTORY: Positive for hypertension, coronary artery disease, acid reflux. PAST SURGICAL HISTORY: Stent insertions to coronary arteries, bariatric sleeve surgery, appendectomy. MEDICATIONS: Lisinopril 2.5 mg once a day, metoprolol 25 mg twice a day, hydrochlorothiazide 25 mg once a day, Brilinta 90 mg twice a day, omeprazole 40 mg once a day, atorvastatin 40 mg once a day, nitroglycerin 0.4 mg on p.r.n. basis, aspirin once a day. FAMILY HISTORY: Diabetes mellitus, hypertension, cancer, lung problems. REVIEW OF SYSTEMS: Awakenings from sleep. PHYSICAL EXAM: Obese, 59-year-old gentleman without distress, BP 157/79, HR 74, RR 16, height 5, 10-1/2, weight 385 pounds, BMI 54.4, temperature 98.3, oxygen saturation at room air 96%. OROPHARYNX: Low position of soft palate. Mallampati 3. Neck is wide, 20 inches in circumference. ABDOMEN: Obese. EXTREMITIES: 1+ ankle edema. IMPRESSION: 1. Snoring, awakenings from sleep. Low position of soft palate, Mallampati 3, wide neck, obstructive sleep apnea-hypopnea syndrome. 2. Morbid obesity, BMI 54.4. 3. Hypertension. 4. Coronary artery disease, status post stents insertion. 5. Status post sleeve surgery for bariatric. 6. Status post appendectomy. 7. Acid reflux. 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 PLAN: 1. Home sleep apnea test evaluation of patient breathing during sleep. 2. CPAP/BiPAP titration if sleep study confirms obstructive sleep apnea-hypopnea syndrome. 3. Preferable position during sleep on the side. 4. No driving if patient feels any sleepiness. 5. I will see patient for follow up visit to explain results of testing and following plan. Thank you very much for referring this patient for consultation. Sincerely, Camacho Mccarty MD, PhD, FAASM Diplomat of [employer] [employer] Director Of Public Health of [facility] [place] MMODL / GAYN: [id number] /
== END | disposition home or self-care (01) ==
LOC: SLEEP 11:06
PROVIDERS: ATTEND Internal Medicine
DX: G47.33 Obstructive sleep apnea (adult) (pediatric) (principal); E66.01 Morbid (severe) obesity due to excess calories; I10 Essential (primary) hypertension; I25.10 Atherosclerotic heart disease of native coronary artery without angina pectoris; K21.9 Gastro-esophageal reflux disease without esophagitis; Z90.49 Acquired absence of other specified parts of digestive tract; Z98.84 Bariatric surgery status; Z68.43 Body mass index [BMI] 50.0-59.9, adult
CPT/HCPCS: 99211

== ENCOUNTER → 2020-03-07 | Outpatient (CLI) | payer BC ==
[2020-03-07 13:31] VITALS: BP 172/94; PULSE 83; RESP 18; TEMP 98.7; BMI 52.5
--- NOTE | 2020-03-07 14:21 | P.HPBAR ---
Bariatric H&P - History & Physicial H&P Date: 03/07/20 History & Physicial: Visit/CC: follow up Patient initial contact: Initial weight: Initial weight in pounds: Height: 5 ft 11 in Initial BMI: Last weight: Current weight: 171.004 kg Current weight in pounds: 377.00 Current BMI: 52.5 [place] body weight (based on NIH guidelines): 78.018 kg Excess body weight loss: The patient is a 59 year-old M who presents for Bariatric Assessment. DATE OF SERVICE: 03/07/2020 REASON FOR CONSULTATION: Initial bariatric evaluation. HISTORY OF PRESENT ILLNESS: Moustapha Martinez is a 59-year-old male who comes with lifelong morbid obesity. He had the sleeve gastrectomy in 2012 at [facility]. His last follow-up at [facility] was 2012. He had no follow- up and had non-compliance. His highest weight was 499 pounds. His lowest weight was 345 pounds. He comes in with weight gain. He was unable to go to the gym four time per week. He gained weight as a result. Four months ago, he had a heart attack where he felt fatigued. He has been non-complaint with follow-up. He still has his gallbladder. He denies acute gastroesophageal reflux disease symptoms. He just completed cardiac rehab and was 390 pounds. He now comes in with more weight loss. He works 12hrs per day. He denies abdominal pain. He denies incisional hernia. He had diabetes prior to his surgery and is now gone. He saw Dr. Hernandez 1 month ago. He reports good cholesterol profile. He comes in with dysphagia with water and foods. He reports having dysphagia prior to his sleeve 10 years ago. He has sleep apnea and needs a sleep study. At height of 5 feet 11 inches, his ideal body weight is 178 pounds. His highest weight was 499 pounds, BMI 69.7. He comes in 376 pounds. His body mass index is 52.6. He is 198 pounds overweight. PAST MEDICAL HISTORY: 1. Morbid obesity due to excess calories 2. Body mass index, 69.7, initial 3. Hyperlipidemia 4. Myocardial ischemia 5. Hypertensive heart disease PAST SURGICAL HISTORY: 1. Appendectomy 2. Sleeve gastrectomy, 2016 3. Cardiac stents 4. Heart catheterization HOME MEDICATIONS: Home Medications Medication Instructions Recorded Confirmed Omeprazole 40 mg PO HS 10/02/19 03/07/20 Previous Rx's Medication Instructions Recorded Aspirin 81 mg PO DAILY chew 10/03/19 Atorvastatin [Lipitor] 40 mg PO DAILY #90 tab 10/03/19 Azithromycin [Zithromax Z-pack] 0 mg PO DIRECTED #6 tab 10/03/19 Losartan [Cozaar] 50 mg PO BID #60 tab 10/03/19 Metoprolol Tartrate [Lopressor] 25 mg PO BID #180 tab 10/03/19 Nitroglycerin Sl Tabs [Nitrostat] 0.4 mg SUBLINGUAL Q5M PRN #25 tab 10/03/19 Ticagrelor [Brilinta] 90 mg PO BID #180 tab 10/03/19 ALLERGIES: Denies SOCIAL HISTORY: Past tobacco use. FAMILY HISTORY: No family history of ulcerative colitis disease or Crohn's disease. Family history of morbid obesity. No lupus in the family. No reports of stomach or esophageal cancer. REVIEW OF ORGAN SYSTEMS: CONSTITUTIONAL: HEENT: Denies any active troubles with vision or hearing. Has troubles with swallowing. ENDOCRINE: Has diabetes. No hypothyroidism. CARDIOVASCULAR: Past reports of palpitations or heart attacks or chest pain. Has congestive heart failure. Has hyperlipidemia. RESPIRATORY: Has daytime somnolence. Has asthma. GASTROINTESTINAL: Denies any bright red blood per rectum. No diarrhea. No constipation. Has gastroesophageal reflux disease. MUSCULOSKELETAL: Has lower back pain and joint pain. Has osteoarthritis of the knees. NEURO: No headaches. No seizure disorders. PSYCH: Has depression. No suicidal ideation. RHEUMATOLOGIC: No lupus. No rheumatoid arthritis. HEMATOLOGIC: Denies any abnormal bleeding or bruising. No personal history of DVTs. On chronic blood thinners SKIN: No rash. No skin cancer. PHYSICAL EXAM: VITAL SIGNS: Height 5 foot 11 inches, weight 376 pounds. BMI 52.6 Vital Signs Temp 98.7 F 03/07/20 13:23 Pulse 83 03/07/20 13:23 Resp 18 03/07/20 13:23 BP 172/94 03/07/20 13:23 Pulse Ox GENERAL: Well-developed in no acute distress. HEENT: No scleral icterus. Extraocular movements grossly intact. Hears conversational speech. No nasal drainage. NECK: Supple without lymphadenopathy. CHEST: Nonlabored respirations with equal bilateral excursions. CARDIOVASCULAR: Regular rate and regular rhythm. Distal 2+ pulses. ABDOMEN: Obese, soft, nontender, nondistended. MUSCULOSKELETAL: No clubbing, cyanosis. NEURO: No focal or lateralizing signs. Cranial nerves 2 through 12 grossly within normal limits. PSYCH: Appropriate affect. Alert and oriented to person, place and time. SKIN: Good skin turgor. Well perfused. ASSESSMENT: 1. Morbid obesity due to excess calories 2. Body mass index, 69.7, initial 3. Hyperlipidemia 4. Myocardial ischemia 5. Hypertensive heart disease 6. Dietary surveillance and counseling 7. Dysphagia PLAN: 1. Recommend a bariatric metabolic panel to evaluate for micro- including macronutrient deficiencies. 2. Dietary surveillance and counseling was reviewed. Increased protein intake over 65 grams daily advised. 3. Recommend upper endoscopy for his dysphagia 4. Recommend 12-lead EKG. 5. Recommend esophagram 6. Recommend food diary journal Thank you for this consultation. Past Medical History Past Medical History: Hypertension History of Any Multi-Drug Resistant Organisms: None Reported Past Surgical History: Appendectomy, Bariatric Surgery, Heart Catheterization With Stent, Hernia Repair Additional Past Surgical History / Comment(s): gastric sleeve 2015; stents X2 placed October 2019 Past Anesthesia/Blood Transfusion Reactions: No Reported Reaction Date of Last Stent Placement:: 10/2019 Past Psychological History: No Psychological Hx Reported Smoking Status: Former smoker Past Alcohol Use History: Occasional Past Drug Use History: Marijuana Surgical - Exam Vital Signs Temp Pulse Resp BP 98.7 F 83 18 172/94 03/07/20 13:23 03/07/20 13:23 03/07/20 13:23 03/07/20 13:23 Bariatric Checklist Checklist: Plan: Checklist: EGD: 1. Hiatal hernia: 2. H. Pylori: HgbA1c: Vitamin D: Smoking: Primary care physician referral: Elsa Galvan Psychiatry clearance: Cardiology clearance: Sleep study: Diet journal: VTE risk score: VTE risk level: Rehab needs at discharge:
== END | disposition home or self-care (01) ==
LOC: BARWHC3 12:59
PROVIDERS: ATTEND Surgery Plastic and Reconstructive Surgery
DX: E66.01 Morbid (severe) obesity due to excess calories (principal); E78.5 Hyperlipidemia, unspecified; I25.9 Chronic ischemic heart disease, unspecified; I11.9 Hypertensive heart disease without heart failure; R13.10 Dysphagia, unspecified; Z79.82 Long term (current) use of aspirin; Z79.899 Other long term (current) drug therapy; Z68.44 Body mass index [BMI] 60.0-69.9, adult; Z71.3 Dietary counseling and surveillance; Z79.891 Long term (current) use of opiate analgesic; Z90.49 Acquired absence of other specified parts of digestive tract
CPT/HCPCS: 99211

== ENCOUNTER 2020-03-29 09:25 | Day surgery (SDC) | payer BC ==
[2020-03-26 14:58] VITALS: BMI 52.1
--- NOTE | 2020-03-29 08:09 | P.GSHP ---
History of Present Illness H&P Date: 03/29/20 CHIEF COMPLAINT: GERD HISTORY OF PRESENT ILLNESS: The patient is a 60-year-old male who presents reports gastroesophageal reflux disease. Upper endoscopy was offered for further evaluation and management. PAST MEDICAL HISTORY: Please see list. PAST SURGICAL HISTORY: Please see list. MEDICATIONS: Please see list. ALLERGIES: Please see list. SOCIAL HISTORY: No illicit drug use FAMILY HISTORY: No reports of Crohn disease or ulcerative colitis. REVIEW OF ORGAN SYSTEMS: CONSTITUTIONAL: No reports of fevers or chills. GI: Denies any blood in stools or constipation. PHYSICAL EXAM: VITAL SIGNS: Stable GENERAL: Well-developed and pleasant in no acute distress. HEENT: No scleral icterus. Extraocular movements grossly intact. Moist buccal mucosa. NECK: Supple without lymphadenopathy. CHEST: Unlabored respirations. Equal bilateral excursions. CARDIOVASCULAR: Regular rate and rhythm. Distal 2+ pulses. ABDOMEN: Soft, nondistended. MUSCULOSKELETAL: No clubbing, cyanosis, or edema. ASSESSMENT: 1. Gastroesophageal reflux disease PLAN: 1. Recommend proceeding with an upper endoscopy Past Medical History Past Medical History: Diabetes Mellitus, GERD/Reflux, Hyperlipidemia, Hypertension, Myocardial Infarction ([place]), Sleep Apnea/CPAP/BIPAP Additional Past Medical History / Comment(s): diet controlled diabetes. difficulty swallowing Last Myocardial Infarction Date:: 11/05 History of Any Multi-Drug Resistant Organisms: None Reported Past Surgical History: Appendectomy, Bariatric Surgery, Heart Catheterization With Stent, Hernia Repair Additional Past Surgical History / Comment(s): gastric sleeve 2015; stents X2 placed October 2019 Past Anesthesia/Blood Transfusion Reactions: No Reported Reaction Date of Last Stent Placement:: 10/2019 Smoking Status: Former smoker Medications and Allergies Home Medications Medication Instructions Recorded Confirmed Type Omeprazole 40 mg PO HS 10/02/19 03/26/20 History Aspirin 81 mg PO DAILY chew 10/03/19 03/26/20 Rx Atorvastatin [Lipitor] 40 mg PO DAILY #90 tab 10/03/19 03/26/20 Rx Metoprolol Tartrate [Lopressor] 25 mg PO BID #180 tab 10/03/19 03/26/20 Rx Nitroglycerin Sl Tabs [Nitrostat] 0.4 mg SUBLINGUAL Q5M PRN #25 tab 10/03/19 03/26/20 Rx Ticagrelor [Brilinta] 90 mg PO BID #180 tab 10/03/19 03/26/20 Rx Allergies Allergy/AdvReac Type Severity Reaction Status Date / Time No Known Allergies Allergy Verified 03/26/20 14:50
[~2020-03-29 09:25] MED LIST: LACTATED RINGERS 1,000 ML IV SCH
[2020-03-29 10:10] VITALS: TEMP 96.8
[2020-03-29] MEDS ORDERED: LIDOCAINE 1% (10MG/ML) FOR IV START INTRADERMA ONE (10:15)
[2020-03-29] MEDS ORDERED: KETAMINE 10 MG/ML 20 ML VIAL ONE (10:52)
[2020-03-29] MEDS ORDERED: fentaNYL (PF) 50 MCG/ML 2 ML AMP ONE (10:52)
[2020-03-29] MEDS ORDERED: PROPOFOL 10 MG/ML 20 ML VIAL IV ONE (10:52)
[2020-03-29] MEDS ORDERED: LIDOCAINE 1% INJ 10MG/ML (20 ML MDV) ONE (10:52)
[2020-03-29] MEDS ORDERED: MIDAZOLAM 2 MG/2 ML VIAL ONE (10:52)
--- NOTE | 2020-03-29 11:19 | P.PCN ---
Date of Procedure: 03/29/20 Description of Procedure: PREOPERATIVE DIAGNOSIS: Status post sleeve gastrectomy. Gastroesophageal reflux disease. Epigastric abdominal pain. Morbid obesity due to excess calories, BMI 52.0 POSTOPERATIVE DIAGNOSIS: Status post sleeve gastrectomy. Gastroesophageal reflux disease. Epigastric abdominal pain. Chronic superficial gastritis. OPERATION: Esophagogastroduodenoscopy with cold forceps biopsies along the antrum. SURGEON: Debbie Del Castillo MD ANESTHESIA: MAC. INDICATIONS: The patient is a 60-year-old male who presents with a history of sleeve gastrectomy with abdominal pain. Benefits and risks of the procedure were described. Informed consent was obtained. DESCRIPTION: The patient was brought into the endoscopy suite and laid in the left lateral decubitus position. An Olympus gastroscope was passed along the posterior oropharynx down to the distal esophagus where the squamocolumnar junction was at 46 centimeters from the incisors remarkable for erosive esophagitis, LA grade A without ulceration. The stomach was entered diaphragmatic hiatus found at 46 cm. The sleeve reservoir very large allowing easy retroflexion of the scope to view the lower esophageal valve. Chronic gastritis albeit mild was found along the antrum with cold biopsies obtained. The first through third portion of the duodenum was examined and unremarkable. The scope again had easily retroflexed along the antrum. The stomach was desufflated. The patient tolerated the procedure well. FINDINGS: No acute ulceration found along her sleeve. No corkscrewing sleeve gastrectomy. Squamocolumnar junction at 46 cm from the incisors. Diaphragmatic hiatus at 46 cm. Moderate large gastric reservoir with prior history of sleeve gastrectomy allowing easy retroflexion of the gastroscope to view the lower esophageal valve. LA grade A erosive esophagitis. No active duodenitis. Chronic gastritis. Stricture along angularis incisura RECOMMENDATIONS: Upper endoscopy as needed. May benefit from antireflux operation versus repeat sleeve gastrectomy Plan - Discharge Summary Discharge Rx Participant: No New Discharge Prescriptions: No Action Omeprazole 40 mg PO HS Aspirin 81 mg PO DAILY chew Ticagrelor [Brilinta] 90 mg PO BID #180 tab Atorvastatin [Lipitor] 40 mg PO DAILY #90 tab Metoprolol Tartrate [Lopressor] 25 mg PO BID #180 tab Nitroglycerin Sl Tabs [Nitrostat] 0.4 mg SUBLINGUAL Q5M PRN #25 tab PRN Reason: Chest Pain Discharge Medication List Omeprazole 40 mg PO HS 10/02/19 [History] Aspirin 81 mg PO DAILY chew 10/03/19 [Rx] Atorvastatin [Lipitor] 40 mg PO DAILY #90 tab 10/03/19 [Rx] Metoprolol Tartrate [Lopressor] 25 mg PO BID #180 tab 10/03/19 [Rx] Nitroglycerin Sl Tabs [Nitrostat] 0.4 mg SUBLINGUAL Q5M PRN #25 tab 10/03/19 [Rx] Ticagrelor [Brilinta] 90 mg PO BID #180 tab 10/03/19 [Rx]
[2020-03-29 11:34] VITALS: BP 126/81; PULSE 68; RESP 16
== END 2020-03-29 12:02 | disposition home or self-care (01) ==
LOC: ORWHC2ENDO 09:25
PROVIDERS: ATTEND Surgery Plastic and Reconstructive Surgery
DX: K29.30 Chronic superficial gastritis without bleeding (principal); K21.00 Gastro-esophageal reflux disease with esophagitis, without bleeding; K22.10 Ulcer of esophagus without bleeding; I25.2 Old myocardial infarction; I10 Essential (primary) hypertension; I25.10 Atherosclerotic heart disease of native coronary artery without angina pectoris; E66.01 Morbid (severe) obesity due to excess calories; E78.5 Hyperlipidemia, unspecified; E11.9 Type 2 diabetes mellitus without complications; Z79.82 Long term (current) use of aspirin; Z68.43 Body mass index [BMI] 50.0-59.9, adult; Z98.84 Bariatric surgery status; Z79.899 Other long term (current) drug therapy; Z87.891 Personal history of nicotine dependence
CPT/HCPCS: 88305; 43239; J2250; J2001; J3010; J2704

== ENCOUNTER 2021-07-16 22:07 | Emergency (ER) | payer BC, OTHER ==
[2021-07-16 22:22] VITALS: RESP 18
[2021-07-16] MEDS ORDERED: DIPH,PERTUS(ACELL)TETVAC-LF 0.5 ML VIAL IM ONE (23:02)
[2021-07-16] MEDS ORDERED: CEPHALEXIN 500 MG CAP PO STA (23:02)
--- NOTE | 2021-07-16 23:02 | ED ---
Skin/Abscess/FB HPI - General Chief complaint: Skin/Abscess/Foreign Body Stated complaint: IHS RT wrist injury Time Seen by Provider: 07/16/21 22:33 Source: patient, EMS, RN notes reviewed, old records reviewed Mode of arrival: EMS Limitations: no limitations - History of Present Illness Initial comments: This is a 61-year-old male who obtained a foreign body in his right hand at work. It is a piece or razor. Patient had his wounds and isn't presents to ER with foreign body and right wrist. More his right palm. Patient has no other complaints able move everything and is regular without difficulty breathing does have mild pain. Tetanus is not up-to-date MD complaint: laceration, other (Foreign body being razor blade) -: minutes(s) Location: R hand Severity: moderate Severity scale (1-10): 6 Quality: sharp Consistency: constant Improves with: none Worsens with: none Context: none Associated symptoms: denies other symptoms Treatments Prior to Arrival: bandages - Related Data Home Medications Medication Instructions Recorded Confirmed Omeprazole 40 mg PO HS 10/02/19 03/29/20 Previous Rx's Medication Instructions Recorded Aspirin 81 mg PO DAILY chew 10/03/19 Atorvastatin [Lipitor] 40 mg PO DAILY #90 tab 10/03/19 Metoprolol Tartrate [Lopressor] 25 mg PO BID #180 tab 10/03/19 Nitroglycerin Sl Tabs [Nitrostat] 0.4 mg SUBLINGUAL Q5M PRN #25 tab 10/03/19 Ticagrelor [Brilinta] 90 mg PO BID #180 tab 10/03/19 Allergies Allergy/AdvReac Type Severity Reaction Status Date / Time No Known Allergies Allergy Verified 07/16/21 22:16 Review of Systems ROS Statement: Those systems with pertinent positive or pertinent negative responses have been documented in the HPI. ROS Other: All systems not noted in ROS Statement are negative. Past Medical History Past Medical History: Hypertension History of Any Multi-Drug Resistant Organisms: None Reported Past Surgical History: Appendectomy, Bariatric Surgery, Heart Catheterization With Stent, Hernia Repair Additional Past Surgical History / Comment(s): gastric sleeve 2015; stents X2 placed October 2019 Past Anesthesia/Blood Transfusion Reactions: No Reported Reaction Date of Last Stent Placement:: 10/2019 Past Psychological History: No Psychological Hx Reported Smoking Status: Former smoker General Exam Limitations: no limitations General appearance: alert, in no apparent distress Head exam: Present: atraumatic, normocephalic, normal inspection Eye exam: Present: normal appearance, PERRL, EOMI. Absent: scleral icterus, conjunctival injection, periorbital swelling ENT exam: Present: normal exam, mucous membranes moist Neck exam: Present: normal inspection. Absent: tenderness, meningismus, lymphadenopathy Respiratory exam: Present: normal lung sounds bilaterally. Absent: respiratory distress, wheezes, rales, rhonchi, stridor Cardiovascular Exam: Present: regular rate, normal rhythm, normal heart sounds. Absent: systolic murmur, diastolic murmur, rubs, gallop, clicks GI/Abdominal exam: Present: soft, normal bowel sounds. Absent: distended, tenderness, guarding, rebound, rigid Extremities exam: Present: normal inspection, full ROM, normal capillary refill, other (Right palm has a 5 cm laceration after foreign body is removed). Absent: tenderness, pedal edema, joint swelling, calf tenderness Back exam: Present: normal inspection Neurological exam: Present: alert, oriented X3, CN II-XII intact Psychiatric exam: Present: normal affect, normal mood Skin exam: Present: warm, dry, intact, normal color. Absent: rash Course Vital Signs 07/16/21 22:16 Temperature 98.6 F Pulse Rate 97 Respiratory 18 Rate Blood Pressure 158/69 O2 Sat by Pulse 93 L Oximetry - Reevaluation(s) Reevaluation #1: 07/17/21 00:10 Medical record has been reviewed Reevaluation #2: 07/17/21 00:10 foreign body removed from right hand, razor blade without difficulty wound is repaired Reevaluation #3: 07/17/21 00:11 Patient informed of results and questions answered Reevaluation #4: 07/17/21 00:11 Patient has no complaints Procedures - Laceration Laceration #1 Consent Obtained: verbal consent Indication: laceration Site: hand Size (cm): 5 Description: linear Depth: simple, single layer Anesthetic Used: lidocaine 1% Anesthesia Technique: local infiltration Pre-repair: wound explored, irrigated extensively Type of Sutures: nylon Size of Sutures: 4-0 Technique: simple, interrupted Patient Tolerated Procedure: well Medical Decision Making - Medical Decision Making 61 male has foreign body right palm laceration is repaired, no foreign body is removed, razor blade. No bleeding patient has full range of motion of right palm and hand. Patient can be discharged home - Radiology Data Radiology results: report reviewed (XR R hand shows no foreign body), image reviewed Disposition Clinical Impression: Laceration of right hand with foreign body Disposition: HOME SELF-CARE Condition: Good Instructions (If sedation given, give patient instructions): Laceration (ED), Care For Your Stitches (ED) Is patient prescribed a controlled substance at d/c from ED?: No Referrals: Roosevelt العلي MD [Primary Care Provider] - 1-2 days
[2021-07-16] MEDS ORDERED: LIDOCAINE 1%/EPI 1:200,000 MPF 10 ML VIAL SQ STA (23:03)
--- NOTE | 2021-07-16 23:36 | XR ---
EXAMINATION TYPE: XR hand limited RT DATE OF EXAM: 07/16/2021 COMPARISON: NONE HISTORY: Foreign body. Pain TECHNIQUE: 2 views FINDINGS: There is narrowing and spurring at the first carpometacarpal joint. I see no fracture nor d islocation. There are no erosions. Fingers appear intact. IMPRESSION: Osteoarthritis at the base of the thumb. There is also some osteoarthritis at the first M TP joint and second MP joint. No fracture seen.
[2021-07-17] MEDS ORDERED: CEPHALEXIN 500MG STARTER PACK 4 CAP BTL PO STA (00:38)
[2021-07-17 00:46] VITALS: BP 137/84; PULSE 69; TEMP 98.4
== END 2021-07-17 00:45 | disposition home or self-care (01) ==
LOC: EC 22:07
DX: S61.421A Laceration with foreign body of right hand, initial encounter (principal); I10 Essential (primary) hypertension; Z23 Encounter for immunization; Z87.891 Personal history of nicotine dependence; W26.8XXA Contact with other sharp object(s), not elsewhere classified, initial encounter
CPT/HCPCS: 90715

== ENCOUNTER 2022-02-20 19:31 | Emergency (ER) | payer BC ==
[2022-02-20 19:54] VITALS: TEMP 97
[2022-02-20 20:30] LABS: Basophils # (A) 0.1 k/uL (0-0.2); Basophils % (A) 1 %; Eosinophils # (A) 0.2 k/uL (0-0.7); Eosinophils % (A) 2 %; HCT 47.4 % (39.0-53.0); HGB 16.2 gm/dL (13.0-17.5); Lymphocytes # (A) 1.9 k/uL (1.0-4.8); Lymphocytes % (A) 19 %; MCH 30.6 pg (25.0-35.0); MCHC 34.1 g/dL (31.0-37.0); MCV 89.9 fL (80.0-100.0); Mean Platelet Volume 8.8; Monocytes # (A) 0.6 k/uL (0-1.0); Monocytes % (A) 6 %; Neutrophils # (A) 7.1 k/uL (1.3-7.7); Neutrophils % (A) 71 %; Platelet Count 165 k/uL (150-450); RBC 5.27 m/uL (4.30-5.90); RDW 13.3 % (11.5-15.5)
[2022-02-20 20:40] LABS: ALT 26 U/L (4-49); AST 26 U/L (17-59); African American GFR (CKD) >90 (>60 ml/min/1.73 sqM); Alkaline Phosphatase 123 U/L (38-126); Anion Gap 7 mmol/L; Blood Urea Nitrogen 27 mg/dL (9-20); Calcium 8.9 mg/dL (8.4-10.2); Carbon Dioxide 31 mmol/L (22-30); Chloride 104 mmol/L (98-107); Glucose 90 mg/dL (74-99); Magnesium 2.1 mg/dL (1.6-2.3); Non-African American GFR(CKD) >90 (>60 ml/min/1.73 sqM); Partial Thromboplastin Time 24.2 sec (22.0-30.0); Potassium 4.6 mmol/L (3.5-5.1); Prothrombin Time 10.8 sec (9.0-12.0); Sodium 142 mmol/L (137-145); Total Bilirubin 1.4 mg/dL (0.2-1.3); Total Protein 7.2 g/dL (6.3-8.2)
--- NOTE | 2022-02-20 23:08 | XR ---
EXAMINATION TYPE: XR chest 2V DATE OF EXAM: 02/20/2022 COMPARISON: 10/02/2019 HISTORY: Chest pain TECHNIQUE: 2 views FINDINGS: Heart and mediastinum are normal. Lungs are clear. Diaphragm is normal. Bony thorax is inta ct. IMPRESSION: Normal chest. No change.
--- NOTE | 2022-02-21 00:11 | ED ---
General Adult HPI - General Chief complaint: Chest Pain Stated complaint: Chest pain Time Seen by Provider: 02/20/22 23:55 Source: patient, family Mode of arrival: wheelchair Limitations: no limitations - History of Present Illness Initial comments: This is a 61-year-old male with a past medical history including previous cardiac stenting and hypertension presents emergency department for intermittent chest pain. The patient stated this chest pain began earlier this morning and has been intermittent associated with some fatigue. The patient did state that it was similar to his previous episode of an [place] were he did receive stents he was concerned speaking to the emergency department for evaluation. The patient did state that the chest pain was intermittent and only lasting a few minutes and then would be associated with fatigue. The patient did state that he was concerned and he came to the emergency department for evaluation however denied of any current chest pain. The patient denied any nausea, vomiting as well as any diaphoresis. - Related Data Home Medications Medication Instructions Recorded Confirmed Omeprazole 40 mg PO HS 10/02/19 03/29/20 Previous Rx's Medication Instructions Recorded Aspirin 81 mg PO DAILY chew 10/03/19 Atorvastatin [Lipitor] 40 mg PO DAILY #90 tab 10/03/19 Metoprolol Tartrate [Lopressor] 25 mg PO BID #180 tab 10/03/19 Nitroglycerin Sl Tabs [Nitrostat] 0.4 mg SUBLINGUAL Q5M PRN #25 tab 10/03/19 Ticagrelor [Brilinta] 90 mg PO BID #180 tab 10/03/19 Allergies Allergy/AdvReac Type Severity Reaction Status Date / Time No Known Allergies Allergy Verified 07/16/21 22:16 Review of Systems ROS Statement: Those systems with pertinent positive or pertinent negative responses have been documented in the HPI. ROS Other: All systems not noted in ROS Statement are negative. Past Medical History Past Medical History: Hypertension, Myocardial Infarction ([place]) Additional Past Medical History / Comment(s): diet controlled diabetes. difficulty swallowing Last Myocardial Infarction Date:: 11/05 History of Any Multi-Drug Resistant Organisms: None Reported Past Surgical History: Appendectomy, Bariatric Surgery, Heart Catheterization, Heart Catheterization With Stent, Hernia Repair Additional Past Surgical History / Comment(s): gastric sleeve 2015; stents X2 placed October 2019 Past Anesthesia/Blood Transfusion Reactions: No Reported Reaction Date of Last Stent Placement:: 10/2019 Past Psychological History: No Psychological Hx Reported Smoking Status: Former smoker General Exam Limitations: no limitations General appearance: alert, in no apparent distress, obese Head exam: Present: atraumatic, normocephalic, normal inspection Eye exam: Present: normal appearance, PERRL Pupils: Present: normal accommodation ENT exam: Present: normal exam, normal oropharynx, mucous membranes moist Neck exam: Present: normal inspection, full ROM Respiratory exam: Present: normal lung sounds bilaterally Cardiovascular Exam: Present: regular rate, normal rhythm, normal heart sounds GI/Abdominal exam: Present: soft, normal bowel sounds Extremities exam: Present: normal inspection, full ROM, normal capillary refill Back exam: Present: normal inspection, full ROM Neurological exam: Present: alert, oriented X3, CN II-XII intact Psychiatric exam: Present: normal affect, normal mood Skin exam: Present: warm, dry Course Vital Signs 02/20/22 02/21/22 02/21/22 19:51 00:14 00:17 Temperature 97 F L Pulse Rate 86 70 Pulse Rate [ 70 Sitting] Respiratory 20 18 Rate Blood Pressure 159/83 121/66 O2 Sat by Pulse 98 100 Oximetry 02/21/22 00:21 Temperature 97 F L Pulse Rate 70 Pulse Rate [ Sitting] Respiratory 18 Rate Blood Pressure 121/66 O2 Sat by Pulse 100 Oximetry EKG Findings - EKG Comments: EKG Findings:: An EKG was obtained and was interpreted by myself. EKG showed a rate of 79, NM interval of 195, QRS duration 106 and QTC of 451. This EKG showed a normal sinus rhythm with no ST segment elevation or depression noted. Medical Decision Making - Medical Decision Making Was pt. sent in by a medical professional or institution (DAMASO Okeefe, SPORTS PHYSICAL THERAPIST, urgent care, hospital, or halfway...) When possible be specific @ -No Did you speak to anyone other than the patient for history (EMS, parent, family, police, friend...)? What history was obtained from this source @ -No Did you review nursing and triage notes (agree or disagree)? Why? @ -I reviewed and agree with nursing and triage notes Were old charts reviewed (outside hosp., previous admission, EMS record, old EKG, old radiological studies, urgent care reports/EKG's, halfway records)? Report findings @ -No old charts were reviewed Differential Diagnosis (chest pain, altered mental status, abdominal pain women, abdominal pain men, vaginal bleeding, weakness, fever, dyspnea, syncope, headache, dizziness, GI bleed, back pain, seizure, CVA, palpatations, mental health)? @ -Acute coronary syndrome, pneumonia, costochondritis EKG interpreted by me (3pts min.). @ -As above X-rays interpreted by me (1pt min.). @ -Chest x-ray was obtained and was interpreted by myself showing no acute process CT interpreted by me (1pt min.). @ -None done U/S interpreted by me (1pt. min.). @ -None done What testing was considered but not performed or refused? (CT, X-rays, U/S, labs)? Why? @ -None What meds were considered but not given or refused? Why? @ -None Did you discuss the management of the patient with other professionals (professionals i.e. , PA, SPORTS PHYSICAL THERAPIST, lab, RT, psych nurse, social media editor, candy department manager, teacher, business services officer, case worker)? Give summary @ -No Was smoking cessation discussed for >3mins.? @ -No Was critical care preformed (if so, how long)? @ -No Were there social determinants of health that impacted care today? How? (Homelessness, low income, unemployed, alcoholism, drug addiction, transportation, low edu. Level, literacy, decrease access to med. care, prison, rehab)? @ -No Was there de-escalation of care discussed even if they declined (Discuss DNR or withdrawal of care, Hospice)? DNR status @ -No What co-morbidities impacted this encounter? (DM, HTN, Smoking, COPD, CAD, Cancer, CVA, ARF, Chemo, Hep., AIDS, mental health diagnosis, sleep apnea, morbid obesity)? @ -Hypertension, previous cardiac stents Was patient admitted / discharged? Hospital course, mention meds given and route, prescriptions, significant lab abnormalities, going to OR and other pertinent info. @ -The patient was seen and evaluated emergency department. Physical exam, the patient was resting in bed without any acute distress. Vital signs admission were stable and within normal limits. Due to the nature the patient's complaints, laboratory workup was obtained and a chest x-ray was obtained in triage. On my evaluation, the patient denied of any chest pain and was stable. All workup was negative. The patient was deemed stable for discharge as he did state that he would follow up with cardiology as an outpatient and I did agree with this plan. 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 The patient and his were agreeable to this plan and the patient was discharged in stable condition with his . Undiagnosed new problem with uncertain prognosis? @ -No Drug Therapy requiring intensive monitoring for toxicity (Heparin, Nitro, Insulin, Cardizem)? @ -No Were any procedures done? @ -No Diagnosis/symptom? @ -Atypical chest pain Acute, or Chronic, or Acute on Chronic? @ -Acute Uncomplicated (without systemic symptoms) or Complicated (systemic symptoms)? @ -Uncomplicated Side effects of treatment? @ -No Exacerbation, Progression, or Severe Exacerbation? @ -No Poses a threat to life or bodily function? How? (Chest pain, [place], [place], pneumonia, PE, COPD, DKA, ARF, appy, cholecystitis, CVA, Diverticulitis, Homicidal, Suicidal, threat to staff... and all critical care pts) @ -No - Lab Data Result diagrams: 02/20/22 20:03 02/20/22 20:03 Lab Results 02/20/22 02/20/22 02/20/22 Range/Units 20:03 20:03 20:03 WBC 10.0 (3.8-10.6) k/uL RBC 5.27 (4.30-5.90) m/uL Hgb 16.2 (13.0-17.5) gm/dL Hct 47.4 (39.0-53.0) % MCV 89.9 (80.0-100.0) fL MCH 30.6 (25.0-35.0) pg MCHC 34.1 (31.0-37.0) g/dL RDW 13.3 (11.5-15.5) % Plt Count 165 (150-450) k/uL MPV 8.8 Neutrophils % 71 % Lymphocytes % 19 % Monocytes % 6 % Eosinophils % 2 % Basophils % 1 % Neutrophils # 7.1 (1.3-7.7) k/uL Lymphocytes # 1.9 (1.0-4.8) k/uL Monocytes # 0.6 (0-1.0) k/uL Eosinophils # 0.2 (0-0.7) k/uL Basophils # 0.1 (0-0.2) k/uL PT 10.8 (9.0-12.0) sec INR 1.0 (<1.2) APTT 24.2 (22.0-30.0) sec Sodium 142 (137-145) mmol/L Potassium 4.6 (3.5-5.1) mmol/L Chloride 104 (98-107) mmol/L Carbon Dioxide 31 H (22-30) mmol/L Anion Gap 7 mmol/L BUN 27 H (9-20) mg/dL Creatinine 0.87 (0.66-1.25) mg/dL Est GFR (CKD-EPI)AfAm >90 (>60 ml/min/1.73 sqM) Est GFR (CKD-EPI)NonAf >90 (>60 ml/min/1.73 sqM) Glucose 90 (74-99) mg/dL Calcium 8.9 (8.4-10.2) mg/dL Magnesium 2.1 (1.6-2.3) mg/dL Total Bilirubin 1.4 H (0.2-1.3) mg/dL AST 26 (17-59) U/L ALT 26 (4-49) U/L Alkaline Phosphatase 123 (38-126) U/L Troponin I (0.000-0.034) ng/mL Total Protein 7.2 (6.3-8.2) g/dL Albumin 4.0 (3.5-5.0) g/dL 02/20/22 Range/Units 20:03 WBC (3.8-10.6) k/uL RBC (4.30-5.90) m/uL Hgb (13.0-17.5) gm/dL Hct (39.0-53.0) % MCV (80.0-100.0) fL MCH (25.0-35.0) pg MCHC (31.0-37.0) g/dL RDW (11.5-15.5) % Plt Count (150-450) k/uL MPV Neutrophils % % Lymphocytes % % Monocytes % % Eosinophils % % Basophils % % Neutrophils # (1.3-7.7) k/uL Lymphocytes # (1.0-4.8) k/uL Monocytes # (0-1.0) k/uL Eosinophils # (0-0.7) k/uL Basophils # (0-0.2) k/uL PT (9.0-12.0) sec INR (<1.2) APTT (22.0-30.0) sec Sodium (137-145) mmol/L Potassium (3.5-5.1) mmol/L Chloride (98-107) mmol/L Carbon Dioxide (22-30) mmol/L Anion Gap mmol/L BUN (9-20) mg/dL Creatinine (0.66-1.25) mg/dL Est GFR (CKD-EPI)AfAm (>60 ml/min/1.73 sqM) Est GFR (CKD-EPI)NonAf (>60 ml/min/1.73 sqM) Glucose (74-99) mg/dL Calcium (8.4-10.2) mg/dL Magnesium (1.6-2.3) mg/dL Total Bilirubin (0.2-1.3) mg/dL AST (17-59) U/L ALT (4-49) U/L Alkaline Phosphatase (38-126) U/L Troponin I <0.012 (0.000-0.034) ng/mL Total Protein (6.3-8.2) g/dL Albumin (3.5-5.0) g/dL Disposition Clinical Impression: Chest pain Disposition: HOME SELF-CARE Instructions (If sedation given, give patient instructions): Chest Pain (ED) Is patient prescribed a controlled substance at d/c from ED?: No Referrals: Roosevelt العلي MD [Primary Care Provider] - 1-2 days Kimmy Hernandez MD [STAFF PHYSICIAN] - 1-2 days Time of Disposition: 00:10
[2022-02-21 00:21] VITALS: BP 121/66; PULSE 70; RESP 18
== END 2022-02-21 00:22 | disposition home or self-care (01) ==
LOC: EC 19:31
DX: R07.89 Other chest pain (principal); I10 Essential (primary) hypertension; E11.9 Type 2 diabetes mellitus without complications; I25.2 Old myocardial infarction; Z87.891 Personal history of nicotine dependence
CPT/HCPCS: 36415; 71046; 80053; 83735; 84484; 85025; 85610; 85730; 93005; 99285

== ENCOUNTER → 2022-06-06 | Outpatient (CLI) | payer BC | END | disposition home or self-care (01) | LOC: LABPAT 09:46 | PROVIDERS: ATTEND Orthopaedic Surgery | DX: Z01.812 Encounter for preprocedural laboratory examination (principal); Z22.322 Carrier or suspected carrier of Methicillin resistant Staphylococcus aureus; M17.12 Unilateral primary osteoarthritis, left knee | CPT/HCPCS: 87070 ==

== ENCOUNTER → 2022-11-04 | Outpatient (CLI) | payer BC | END | disposition home or self-care (01) | LOC: LABPAT 09:41 | PROVIDERS: ATTEND Orthopaedic Surgery | DX: Z01.812 Encounter for preprocedural laboratory examination (principal); Z22.322 Carrier or suspected carrier of Methicillin resistant Staphylococcus aureus; M17.11 Unilateral primary osteoarthritis, right knee | CPT/HCPCS: 87070 ==

== ENCOUNTER 2022-11-17 10:45 | Observation (INO) | payer BC ==
--- NOTE | 2022-11-16 14:26 | HP ---
HISTORY AND PHYSICAL DATE OF SURGERY: 11/17/2022. HISTORY OF PRESENT ILLNESS: Moustapha Martinez is a 62-year-old gentleman seen with symptomatic right knee osteoarthritis. We discussed options for treatment. He elected to proceed with right total knee arthroplasty. Consents obtained. Medical clearance was provided by Dr. العلي's office. Cardiac clearance provided by Dr. Hernandez's office. PAST MEDICAL HISTORY: Cardiovascular disease, hypertension, hyperlipidemia, gastroesophageal reflux disease. PAST SURGICAL HISTORY: Herniorrhaphy, gastric bypass surgery, cardiac catheterization with stent insertion, left total knee arthroplasty. DAILY MEDICATIONS: 1. Losartan. 2. Atorvastatin. 3. Metoprolol. 4. Omeprazole. 5. Potassium. 6. Tylenol. ALLERGIES: None. SOCIAL HISTORY: Denies tobacco use. PHYSICAL EVALUATION OF THE RIGHT KNEE: Range of motion is negative 2 to 95 degrees. Tenderness along the medial and lateral joint line. Crepitance of medial patellofemoral compartments with range of motion. Pain with patellofemoral compression. Ligaments stable. Hip rotation without pain. Distal neurovascular exam is intact. IMAGING: Right knee radiographs reveal severe osteoarthritic changes. IMPRESSION: 1. Right knee osteoarthritis. 2. Hypertension. 3. Hyperlipidemia. 4. Cardiovascular disease. 5. Gastroesophageal reflux disease. PLAN: Right total knee arthroplasty. MMODL / IJN: [id number] /
[~2022-11-17 10:45] MED LIST changes: +ACETAMINOPHEN TAB 500 MG TAB PO PRN; +DEXAMETHASONE SOD PHOSPHATE 4 MG/ML 1 ML VIAL IV ONE; +HYDROmorphone 0.5 MG/0.5 ML SYRINGE IVP PRN; -LACTATED RINGERS 1,000 ML IV SCH; +MELOXICAM 7.5 MG TAB PO PRN; +MIDAZOLAM 2 MG/2 ML VIAL IV PRN; +ONDANSETRON 4 MG/2 ML VIAL IVP ONE; +SCOPOLAMINE 1 MG/72 HR PATCH TRANSDERM ONE; +TRANEXAMIC 1,000 MG/100ML-NACL 1,000 MG in SALINE 1 100ML.BAG IVPB PRN; +ceFAZolin 3 GM in SODIUM CHLORIDE 0.9% 100 ML IVPB PRN
[2022-11-17] MEDS: LACTATED RINGERS 1,000 ML IV SCH ×2 (11:39→18:11)
[2022-11-17 11:43] LABS: Basophils % (A) 0 %; Eosinophils # (A) 0.3 k/uL (0-0.7); Eosinophils % (A) 3 %; HCT 47.9 % (39.0-53.0); HGB 15.8 gm/dL (13.0-17.5); Lymphocytes # (A) 2.1 k/uL (1.0-4.8); Lymphocytes % (A) 22 %; MCHC 32.9 g/dL (31.0-37.0); MCV 88.2 fL (80.0-100.0); Mean Platelet Volume 8.4; Monocytes # (A) 0.6 k/uL (0-1.0); Monocytes % (A) 6 %; Neutrophils # (A) 6.6 k/uL (1.3-7.7); Neutrophils % (A) 67 %; Platelet Count 191 k/uL (150-450); RBC 5.43 m/uL (4.30-5.90); RDW 14.8 % (11.5-15.5); WBC 9.9 k/uL (3.8-10.6)
[2022-11-17 11:50] LABS: Partial Thromboplastin Time 24.8 sec (22.0-30.0); Prothrombin Time 10.7 sec (9.0-12.0)
[2022-11-17] MEDS ORDERED: MIDAZOLAM 2 MG/2 ML VIAL IVP ONE (11:52)
[2022-11-17] MEDS ORDERED: fentaNYL (PF) 50 MCG/1 ML VIAL IVP ONE (11:53)
[2022-11-17 12:03] LABS: ALT 29 U/L (4-49); AST 24 U/L (17-59); African American GFR (CKD) >90 (>60 ml/min/1.73 sqM); Albumin 3.8 g/dL (3.5-5.0); Alkaline Phosphatase 125 U/L (38-126); Anion Gap 10 mmol/L; Blood Urea Nitrogen 20 mg/dL (9-20); Calcium 9.1 mg/dL (8.4-10.2); Carbon Dioxide 28 mmol/L (22-30); Chloride 103 mmol/L (98-107); Glucose 100 mg/dL (74-99); Non-African American GFR(CKD) >90 (>60 ml/min/1.73 sqM); Potassium 4.2 mmol/L (3.5-5.1); Sodium 141 mmol/L (137-145); Total Bilirubin 1.5 mg/dL (0.2-1.3); Total Protein 7.2 g/dL (6.3-8.2)
[2022-11-17] MEDS ORDERED: MIDAZOLAM 2 MG/2 ML VIAL ONE (12:37)
[2022-11-17] MEDS ORDERED: ROCURONIUM 10 MG/ML (5 ML VIAL) IV ONE (12:37)
[2022-11-17] MEDS ORDERED: ePHEDrine 50 MG/ML 1 ML VIAL ONE (12:37)
[2022-11-17] MEDS ORDERED: TRANEXAMIC 1,000 MG/100ML-NACL PREMIX BAG ONE (12:37)
[2022-11-17] MEDS ORDERED: SUCCINYLCHOLINE CHLORIDE 200 MG/10 ML VIAL IV ONE (12:37)
[2022-11-17] MEDS ORDERED: NEOSTIGMINE 1 MG/ML 10 ML VIAL ONE (12:37)
[2022-11-17] MEDS ORDERED: diphenhydrAMINE 50 MG/ML 1 ML VIAL ONE (12:37)
[2022-11-17] MEDS ORDERED: fentaNYL (PF) 50 MCG/ML 2 ML AMP ONE (12:37)
[2022-11-17] MEDS ORDERED: GLYCOPYRROLATE 0.2 MG/ML 2 ML VIAL ONE (12:37)
[2022-11-17] MEDS ORDERED: ROPIVACAINE 5 MG/ML 30 ML VIAL ONE (12:37)
[2022-11-17] MEDS ORDERED: SODIUM CHLORIDE 0.9% (PF) 10 ML VIAL ONE (12:37)
[2022-11-17] MEDS ORDERED: PHENYLEPHRINE-0.9% NACL SYG 1,000 MCG/10 ML SYRINGE ONE (12:37)
[2022-11-17] MEDS ORDERED: ceFAZolin 1,000 MG in SODIUM CHLORIDE 0.9% 1,000 ML IRRIGATION ONE (13:15)
[2022-11-17] MEDS ORDERED: LACTATED RINGERS 1,000 ML IV ONE (14:33)
[2022-11-17] MEDS ORDERED: NALOXONE 0.4 MG/ML 1 ML VIAL IV PRN (14:41)
[2022-11-17] MEDS ORDERED: HYDROcodone/APAP 5-325MG 1 EACH TAB PO PRN (14:41)
[2022-11-17] MEDS ORDERED: ONDANSETRON 4 MG/2 ML VIAL IVP PRN (14:41)
[2022-11-17] MEDS ORDERED: HYDROmorphone 0.5 MG/0.5 ML SYRINGE IVP PRN ×2 (14:41)
--- NOTE | 2022-11-17 14:41 | P.OP ---
Date of Procedure: 11/17/22 Preoperative Diagnosis: Right knee osteoarthritis Postoperative Diagnosis: Right knee osteoarthritis Procedure(s) Performed: Right total knee arthroplasty Implants: 1. Depuy attune size 8 right cruciate retaining cemented femur 2. Depuy attune size 8 fixed-bearing cemented tibial baseplate 3. Depuy attune size 8 fixed-bearing cruciate retaining 5 mm polyethylene tibial insert 4. Depuy attune 38 mm all polyethylene cemented patella Anesthesia: JUAN CARLOSA, mynor Surgeon: Luis Alberto Dodge Vessel Crew Member #1: Corbin Patrick Estimated Blood Loss (ml): 45 Pathology: none sent Condition: stable Disposition: PACU Indications for Procedure: 62-year-old gentleman seen with symptomatic right knee osteoarthritis. After having treatment options discussed, he elected to proceed with total knee arthroplasty. Operative Findings: See description of procedure Description of Procedure: Patient was taken to the operative suite after having an adductor canal catheter placed by the department of anesthesia. Patient underwent a general anesthetic by the department of anesthesia. Patient was given preoperative IV intake antibiotics and TXA. A well-padded tourniquet was placed about the [] lower extremity. The lower extremity was then prepped and draped in the normal sterile orthopedic fashion. The extremity was elevated, a tourniquet was insufflated to 300. A standard anterior incision was made sharply through skin. Dissection was taken down through the subcutaneous soft tissues down to the extensor mechanism. A medial arthrotomy was performed, patella was everted and knee was flexed. There was advanced osteoarthritis noted. At this point the patient was having some anesthesia issues and underwent a general anesthetic by the department of anesthesia. I now was able to proceed with the procedure. I introduced my distal intramedullary femoral drill. I then introduced the distal femoral cutting jig. Nate PETIT secured the cutting jig with 2 pins. I held retractors in position while Nate PETIT performed the distal femoral resection through the guide area we now removed her distal femoral cutting guide. We now placed our 4-in-1 femoral cutting block and positioned and it was secured with 2 pins by Nate PETIT while I held the block in position. The distal femoral finishing was now completed. A proximal tibial cutting guide was positioned. I held the guide in the appropriate position with both hands well Nate PETIT inserted stabilizing pins into the guide. Proximal tibial cut was made. We now placed a trial femoral component into position, along with an appropriate size tibial tray and insert. We now took the knee through range of motion and had full extension good flexion and good overall soft tissue balance noted. The patella was everted and stabilized with 2 towel clips held by Nate PETIT while I performed a flush with patellar quad tendon utilizing a fresh sawblade. We templated the patella, appropriate drill holes were made. An appropriate trial patella was positioned, knee was taken through full range of motion with the patella tracking very nicely. The trial patella was removed. Drill holes were made through the femoral component. All trial components were removed after marking off the appropriate rotation of the tibia. Retractors were now positioned along the proximal tibia. An appropriate keel punch was made with the appropriate size tibial guide by myself on Nate PETIT assisted by holding retractors. At this point appropriate size implants were chosen and opened. The joint was irrigated copiously with pulse lavage mechanical irrigation. The wound was irrigated with pulse lavage mechanical irrigation. We mixed antibiotic methylmethacrylate. We placed the knee into flexion. We placed multiple retractors assisted by Nate PETIT to expose the proximal tibia. Once the methyl methacrylate was ready, the tibial component was cemented into place removing any excess methylmethacrylate form by both myself and Nate PETIT. The femoral component was cemented into place removing the removing any excess methylmethacrylate performed by both myself and Nate PETIT. We then inserted the appropriate size polyethylene tibial insert. We made sure that it was locked into position. We took the knee into full extension, and then back in a flexion making sure we had removed any excess methylmethacrylate. The patellar component was then cemented down and secured with clamp. Excess methylmethacrylate removed. We kept the knee in full extension, patellar clamp in position until methylmethacrylate had hardened. Once it had hardened the patellar clamp was removed. The knee was taken through full range of motion. The patella tracked nicely. There was good soft tissue balancing. The tourniquet was now released. Additional hemostasis was achieved via electrocautery. A second gram of TXA was given. The wound again was irrigated with pulse lavage mechanical irrigation. The extensor mechanism was repaired with Ethibond suture. We checked the repair with range of motion and it was stable. The subcutaneous soft tissues were repaired with Vicryl in layers. The skin was approximated with pernio/Dermabond. Sterile dressings were applied followed by loose web roll and Johnny bandage. The patient was transferred to a bed, and taken to recovery in stable and satisfactory condition. Nate PETIT assisted with this complex procedure.
[2022-11-17] MEDS ORDERED: HYDROmorphone 1 MG/ML 1 ML SYRINGE IVP ONE (16:46)
--- NOTE | 2022-11-17 16:50 | XR ---
EXAMINATION TYPE: XR knee limited RT DATE OF EXAM: 11/17/2022 4:38 PM CLINICAL INDICATION:Male, 62 years old with history of Evaluation for Postop abnormality and alignmen t; COMPARISON: None. TECHNIQUE: XR knee limited RT; examined in Frontal, lateral projections. FINDINGS: Status post total knee arthroplasty changes with hardware in appropriate alignment and in tact. No evidence of fracture. Subcutaneous lucencies and lucencies within the joint consistent with surgical changes. IMPRESSION: Status post total knee arthroplasty changes with hardware intact and appropriate alignment. No fractu res identified.
--- NOTE | 2022-11-17 18:29 | P.ANPRN ---
Procedure Note - Anesthesia - Nerve Block Performed Right Adductor Canal Time Out Performed: Yes (11:52) Date of Procedure: 11/17/22 Procedure Start Time: Procedure Stop Time: 12: Location of Patient: PreOp Indication: Acute Post-Operative Pain, Requested by Surgeon (Dr Dodge) Sedation Type: Sedate with meaningful contact maintained Preparation: Sterile Prep, Sterile Dressing Position: Supine Catheter: Indwelling Needle Types: Pajunk Needle Gauge: 21 Ultrasound used to visualize needle placement: Yes Ultrasound used to observe medication spread: Yes Injectate: 0.5% Ropivacaine (see comment for volume) (20cc) Blood Aspirated: No Pain Paresthesia on Injection Noted: No Resistance on Injection: Normal Image Stored and Saved: Yes Events: Uneventful and Well Tolerated
--- NOTE | 2022-11-17 18:31 | P.ANPRN ---
Procedure Note - Anesthesia - Nerve Block Performed Right iPack Time Out Performed: Yes Date of Procedure: 11/17/22 Procedure Start Time: 12:02 Procedure Stop Time: 12:07 Location of Patient: PreOp Indication: Acute Post-Operative Pain, Requested by Surgeon (Dr Dodge) Sedation Type: Sedate with meaningful contact maintained Preparation: Sterile Prep Position: Supine Catheter: None Needle Types: Pajunk Needle Gauge: 21 Ultrasound used to visualize needle placement: Yes Ultrasound used to observe medication spread: Yes Injectate: 0.5% Ropivacaine (see comment for volume) (15cc +5cc PF Normal saline) Blood Aspirated: No Pain Paresthesia on Injection Noted: No Resistance on Injection: Normal Image Stored and Saved: Yes Events: Uneventful and Well Tolerated
[2022-11-17] MEDS: HYDROcodone/APAP 7.5-325MG 1 EACH TAB PO PRN (19:57)
[2022-11-17] MEDS: SENNOSIDES-DOCUSATE SODIUM 1 EACH TAB PO SCH (19:58)
[2022-11-17] MEDS: ceFAZolin 3 GM in SODIUM CHLORIDE 0.9% 100 ML IVPB SCH (19:58)
[2022-11-17] MEDS: carvediloL 6.25 MG TAB PO SCH (20:28)
[2022-11-18] MEDS: LACTATED RINGERS 1,000 ML IV SCH ×4 (00:46→17:29)
[2022-11-18] MEDS: HYDROmorphone 1 MG/ML 1 ML SYRINGE IVP PRN ×2 (00:47→06:34)
[2022-11-18] MEDS: ENOXAPARIN 30 MG/0.3 ML SYRINGE SQ SCH ×2 (05:07→21:09)
[2022-11-18] MEDS: ceFAZolin 3 GM in SODIUM CHLORIDE 0.9% 100 ML IVPB SCH (05:07)
[2022-11-18] MEDS: HYDROcodone/APAP 7.5-325MG 1 EACH TAB PO PRN (05:08)
[2022-11-18] MEDS: carvediloL 6.25 MG TAB PO SCH ×2 (06:34→17:29)
--- NOTE | 2022-11-18 07:04 | P.PN ---
Progress Note - Text The patient is status post right adductor canal catheter placement. The catheter was placed for postoperative pain control, status post total knee arthroplasty. Ropivacaine 0.2% is infusing at 10 mLs per hour. The patient has no complaints of right lower extremity numbness or weakness. Patient's VAS score is[ 3-4 ]-10, anteriorly and medially. It is reporting increased pain in the lower quad and behind the knee. Block does not cover these areas. The patient has been given supplemental medicines to try to alfredo the pain in those areas. Plan: continue infusion and adjust it as needed.
[2022-11-18 09:11] LABS: HGB 13.8 d/dL (13.0-17.0); MCHC 32.1 d/dL (32.0-37.0); MCV 87.2 FL (80.0-97.0); Mean Platelet Volume 11.1 FL (9.5-12.2); NRBC Per 100 WBC 0 X 10*3/uL (0.00-0.01); Platelet Count 171 X 10*3/uL (140-440); RBC 4.93 X 10*6/uL (4.40-5.60); RDW 14.6 % (11.5-14.5); WBC 14.49 X 10*3/uL (4.50-10.00)
[2022-11-18] MEDS: POTASSIUM CHLORIDE ER 10 MEQ TAB.ER.PRT PO SCH (09:23)
[2022-11-18] MEDS: EZETIMIBE 10 MG TAB PO SCH (09:23)
[2022-11-18] MEDS: ASPIRIN 81 MG PO SCH (09:24)
[2022-11-18] MEDS: ATORVASTATIN 80 MG TAB PO SCH (09:24)
[2022-11-18] MEDS: hydroCHLOROthiazide 12.5 MG CAP PO SCH (09:24)
[2022-11-18] MEDS: LOSARTAN 50 MG TAB PO SCH (09:24)
[2022-11-18 09:37] LABS: Basophils # (A) 0.02 X 10*3/uL (0.00-0.10); Basophils % (A) 0.1 %; Eosinophils # (A) 0.04 X 10*3/uL (0.04-0.35); Eosinophils % (A) 0.3 %; Lymphocytes # (A) 1.88 X 10*3/uL (0.90-5.00); Monocytes # (A) 1.79 X 10*3/uL (0.20-1.00); Monocytes % (A) 12.4 %; Neutrophils % (A) 73.8 %; RBC Morphology Normal (Normal)
--- NOTE | 2022-11-18 10:10 | P.PN ---
Subjective Progress Note Date: 11/18/22 Principal diagnosis: status post right knee arthroplasty Patient was evaluated at bedside, he is resting in his hospital chair. Pain overnight was a little around the spinal anesthetic wore off. He has been ambulating in the halls with use of a walker. Discussed the possibility of increasing his oral pain medication. He is been urinating difficulty. Patient headaches, lightheadedness, chest pain or shortness of breath. Objective - Vital Signs Vital signs: Vital Signs Temp 98.2 F 11/18/22 07:04 Pulse 79 11/18/22 07:04 Resp 18 11/18/22 07:04 BP 110/67 11/18/22 07:04 Pulse Ox 91 L 11/18/22 07:04 FiO2 Intake & Output 11/17/22 11/18/22 11/18/22 18:59 06:59 18:59 Intake Total 2281 Output Total 45 600 Balance 2236 -600 Weight 151.8 kg Intake: IV 1801 Oral 480 Output: Urine 600 Estimated Blood Loss 45 Other: Voiding Method Urinal # Voids 1 - Exam Right lower extremity: Incision is clean, dry, and intact. The exofin fusion tape is in good condition. There is minimal soft tissue swelling and ecchymosis surrounding the medial and lateral aspects of the incision. Calf is soft, no tenderness with palpation. Plantar flexion, dorsiflexion, EHL, FHL are intact. Sensory exam to light touch throughout the extremity is intact, dorsal pedis pulses 2+. - Labs CBC & Chem 7: 11/18/22 05:42 11/17/22 11:33 Labs: Abnormal Lab Results - Last 24 Hours (Table) 11/17/22 11/18/22 Range/Units 11:33 05:42 WBC 14.49 H (4.50-10.00) X 10*3/uL RDW 14.6 H (11.5-14.5) % Neutrophils # 10.70 H (1.80-7.70) X 10*3/uL Monocytes # 1.79 H (0.20-1.00) X 10*3/uL Glucose 100 H (74-99) mg/dL Total Bilirubin 1.5 H (0.2-1.3) mg/dL Assessment and Plan Assessment: Postoperative day #1 status post right total knee arthroplasty Plan: Pain control, we will increase [place] to 10 mg/325 mg at this time. Discussed Lyrica taper after discharge DVT prophylaxis, continue current medication Icing and elevating techniques discussed Encourage incentive spirometer Medical recommendations Continue PT/OT Discharge planning: We'll reevaluate later this afternoon, pending pain control. Discharge to home versus additional night stay in hospital Time with Patient: Less than 30
[2022-11-18] MEDS: HYDROcodone/APAP 10-325MG 1 EACH TAB PO PRN ×3 (10:24→23:38)
[2022-11-18] MEDS: MULTIVITAMINS, THERA 1 EACH TAB PO SCH (12:41)
[2022-11-18] MEDS: SENNOSIDES-DOCUSATE SODIUM 1 EACH TAB PO SCH (21:10)
[2022-11-19] MEDS: HYDROcodone/APAP 10-325MG 1 EACH TAB PO PRN (05:41)
[2022-11-19] MEDS: LACTATED RINGERS 1,000 ML IV SCH ×2 (05:43→08:58)
[2022-11-19] MEDS: carvediloL 6.25 MG TAB PO SCH (06:33)
[2022-11-19 08:12] VITALS: BP 144/85; PULSE 86; RESP 16; TEMP 98.4
[2022-11-19] MEDS: LOSARTAN 50 MG TAB PO SCH (08:57)
[2022-11-19] MEDS: POTASSIUM CHLORIDE ER 10 MEQ TAB.ER.PRT PO SCH (08:57)
[2022-11-19] MEDS: EZETIMIBE 10 MG TAB PO SCH (08:57)
[2022-11-19] MEDS: hydroCHLOROthiazide 12.5 MG CAP PO SCH (08:57)
[2022-11-19] MEDS: ATORVASTATIN 80 MG TAB PO SCH (08:57)
[2022-11-19] MEDS: ENOXAPARIN 30 MG/0.3 ML SYRINGE SQ SCH (08:57)
[2022-11-19] MEDS: ASPIRIN 81 MG PO SCH (08:57)
--- NOTE | 2022-11-19 09:29 | P.PN ---
Subjective Progress Note Date: 11/19/22 Principal diagnosis: status post right knee arthroplasty Patient was evaluated at bedside, he is resting in his hospital chair. Patient is doing a lot better today with regards to pain control. Patient headaches, lightheadedness, chest pain or shortness of breath. Objective - Vital Signs Vital signs: Vital Signs Temp 98.4 F 11/19/22 07:07 Pulse 86 11/19/22 07:07 Resp 16 11/19/22 07:07 BP 144/85 11/19/22 07:07 Pulse Ox 91 L 11/19/22 07:07 FiO2 Intake & Output 11/18/22 11/19/22 11/19/22 18:59 06:59 18:59 Other: Voiding Method Urinal # Voids 2 2 - Exam Right lower extremity: Incision is clean, dry, and intact. The exofin fusion tape is in good condition. There is minimal soft tissue swelling and ecchymosis surrounding the medial and lateral aspects of the incision. Calf is soft, no tenderness with palpation. Plantar flexion, dorsiflexion, EHL, FHL are intact. Sensory exam to light touch throughout the extremity is intact, dorsal pedis pulses 2+. - Labs CBC & Chem 7: 11/18/22 05:42 11/17/22 11:33 Labs: Abnormal Lab Results - Last 24 Hours (Table) 11/18/22 Range/Units 05:42 Neutrophils # 10.70 H (1.80-7.70) X 10*3/uL Monocytes # 1.79 H (0.20-1.00) X 10*3/uL Assessment and Plan Assessment: Postoperative day #2 status post right total knee arthroplasty Plan: Pain control, plan for discharge on [place] 7.5 mg/325 mg and Lyrica 75 mg DVT prophylaxis, Eliquis 2.5mg bid for two week, patient has this medication at home from previous surgery Icing and elevating techniques discussed Encourage incentive spirometer Medical recommendations Continue PT/OT Discharge planning: Plan for discharge home today Time with Patient: Less than 30
--- NOTE | 2022-11-19 09:33 | P.DS ---
Providers Date of admission: 11/18/22 08:17 Expected date of discharge: 11/19/22 Attending physician: Luis Alberto Dodge Consults: 11/17/22 14:41 Consult Physician Routine Consulting Provider: Roosevelt العلي Consult Reason/Comments: Medical management Do you want consulting provider notified?: Yes Primary care physician: Roosevelt العلي Hospital Course: Date of admission: 11/17/2022 Date of discharge: 11/19/2022 Admission diagnosis: Status post right total knee arthroplasty Discharge diagnosis: Same Attending physician: Dr. Dodge Surgical procedures: Right total knee arthroplasty Brief history: Patient is a 62-year-old male with a history of progressive primary right knee osteoarthritis. At this point patient has failed conservative treatment measures and has opted to proceed with a elective right total knee arthroplasty. Hospital course: Details of patient's surgery can be found in operative report. Patient tolerated the procedure well and was subsequently transported to orthopedic floor. Patient's orthopeidc and medical care was provided daily. Patient had daily laboratory tests performed for evaluation of overall blood counts. Patient had daily physical therapy to include strengthening range of motion as well as education with walker ambulation. Patient was treated with Lovenox for their postoperative DVT prophylaxis during their inpatient stay. Dre bashir was noted to have a relatively uneventful postoperative course. Patient reported satisfactory pain control with oral pain medications by postoperative day 2. Patient showed satisfactory progress with physical therapy. Patient moved steadily through the program and had no difficulty meeting the goals by postoperative day 2. Given patient's otherwise satisfactory course and having met physical therapy goals, plan is to discharge patient home on postoperative day 2. Discharge condition/disposition: Patient will be discharged home in stable condition. Discharge medications: Instructions are given on resumption of patient's normal daily medications per primary care recommendation, in addition patient will be prescribed [place] 7.5 mg/325 mg, senna S, Lyrica 75 mg, ELiquis 2.5mg. Discharge instructions: 1. Wound care and infection precautions, keep incision dry and covered while showering, no lotions, creams, moisturizers. No soaking, tubs, pools, hottubs. Do not scrub over the incision. 2. Weight-bear as tolerated with walker / cane until follow-up. 3. Ice and elevate when necessary. Do not exceed 20 minutes per hour with ice pack. 4. Utilize compression sleeve until seen at first follow up appointment. 5. Visiting nursing care. 6. Home physical therapy including home CPM. 7. Pain meds and anticoagulants per prescription. 8. Pain medication has potential to cause constipation. Increase oral fluid and fiber intake. Contact primary care provider if you have not had a bowel movement within 48 hours after discharge 9. No anti-inflammatory medication until discussed at first post operative visit, this including Motrin, Aleve, Mobic, Diclofenac. 10. Follow up in office at 2 weeks postop with Nate Patrick PA-C/Cristo Payne 11. Follow up with your primary care doctor 7-10 days after discharge. 12. Contact [facility] with any questions, . Procedures: Right total knee arthroplasty Patient Condition at Discharge: Good Plan - Discharge Summary Discharge Rx Participant: Yes New Discharge Prescriptions: New HYDROcodone/APAP 7.5-325MG [[place] 7.5] 1 each PO Q4HR PRN #42 tab PRN Reason: Pain Apixaban [Eliquis] 2.5 mg PO BID 14 Days #28 tab Multivitamins, Thera [Multivitamin (formulary)] 1 each PO DAILY@1200 tab Sennosides-Docusate Sodium [Senokot-S] 2 each PO HS tab Pregabalin [Lyrica] 75 mg PO BID 14 Days #21 cap Sennosides/Docusate Sodium [Senna-S 8.6-50 mg Tablet] 2 each PO DAILY PRN #30 tablet PRN Reason: Constipation Continue Aspirin 81 mg PO DAILY chew Potassium Chloride 10 meq PO DAILY Ezetimibe [Zetia] 10 mg PO DAILY Atorvastatin [Lipitor] 80 mg PO DAILY carvediloL [Coreg] 6.25 mg PO BID Phentermine HCl 1 tab PO DAILY Losartan/Hydrochlorothiazide [Hyzaar 100-12.5 Tablet] 1 tab PO DAILY Discharge Medication List Aspirin 81 mg PO DAILY chew 10/03/19 [Rx] Atorvastatin [Lipitor] 80 mg PO DAILY 06/11/22 [History] Ezetimibe [Zetia] 10 mg PO DAILY 06/11/22 [History] Potassium Chloride 10 meq PO DAILY 06/11/22 [History] carvediloL [Coreg] 6.25 mg PO BID 06/11/22 [History] Losartan/Hydrochlorothiazide [Hyzaar 100-12.5 Tablet] 1 tab PO DAILY 11/13/22 [History] Phentermine HCl 1 tab PO DAILY 11/13/22 [History] Multivitamins, Thera [Multivitamin (formulary)] 1 each PO DAILY@1200 tab 11/18/22 [Rx] Sennosides-Docusate Sodium [Senokot-S] 2 each PO HS tab 11/18/22 [Rx] Apixaban [Eliquis] 2.5 mg PO BID 14 Days #28 tab 11/19/22 [Rx] HYDROcodone/APAP 7.5-325MG [[place] 7.5] 1 each PO Q4HR PRN #42 tab 11/19/22 [Rx] Pregabalin [Lyrica] 75 mg PO BID 14 Days #21 cap 11/19/22 [Rx] Sennosides/Docusate Sodium [Senna-S 8.6-50 mg Tablet] 2 each PO DAILY PRN #30 tablet 11/19/22 [Rx] Follow up Appointment(s)/Referral(s): Roosevelt العلي MD [Primary Care Provider] - [facility] - As Needed [facility] [NON-STAFF] - As Needed (Continuous Passive Motion knee machine and walker) Corbin Patrick PAC [PHYSICIAN TONE CABINET ASSEMBLER] - 11/28/22 9:15 am Activity/Diet/Wound Care/Special Instructions: Orthopedic Discharge Instructions: 1. Wound care and infection precautions, keep incision dry and covered while showering, no lotions, creams, moisturizers. No soaking, pools, hot tubs. Do not scrub over incision. 2. Weight-bear as tolerated with walker / cane until follow-up. 3. Ice and elevate when necessary. Do not exceed 20 minutes per hour with ice pack. 4. Utilize compression sleeve until seen at first follow up appointment. 5. Pain meds and anticoagulants per prescription. 6. Pain medication has potential to cause constipation. Increase oral fluid and fiber intake. Contact primary care provider if you have not had a bowel movement within 48 hours after discharge. 7. No anti-inflammatory medication until discussed at first post operative visit, this including Motrin, Aleve, Mobic, Diclofenac. 8. Follow up in office at 2 weeks postop with Nate Patrick PA-C/Cristo Alicea PA-C 9. Follow up with your primary care doctor 7-10 days after discharge. 10. Contact [facility] with any questions, . Wound care instructions: 1. Okay to remove surgical dressing as of 11/24/2022 2. OKAY TO SHOWER DIRECTLY OVER INCISION AFTER REMOVAL OF DRESSING Discharge Disposition: HOME WITH HOME HEALTH SERVICES
[2022-11-19] MEDS: MULTIVITAMINS, THERA 1 EACH TAB PO SCH (12:35)
== END 2022-11-19 12:23 | disposition home health service (06) ==
LOC: OR 10:45 → 4SSUR 16:20 → OR 11-18 08:17 → 4SSUR 11-18 08:17
PROVIDERS: ADMIT Orthopaedic Surgery; ATTEND Orthopaedic Surgery
DX: M17.11 Unilateral primary osteoarthritis, right knee (principal); I10 Essential (primary) hypertension; E78.5 Hyperlipidemia, unspecified; K21.9 Gastro-esophageal reflux disease without esophagitis; I25.10 Atherosclerotic heart disease of native coronary artery without angina pectoris; Z98.84 Bariatric surgery status; Z96.652 Presence of left artificial knee joint
CPT/HCPCS: 96372 ×2; 97161; 64999; 64448; 80053; 85025 ×2; 85610; 85730; 73560; 27447; G0378 ×2; C1776; C1713 ×2; C1751; J2250; J0330; J1200; J1100; J2710; J0690 ×3; J2405; J3010 ×2; J1650 ×2; J1170 ×2; J2795; J2371

== ENCOUNTER 2022-11-25 17:22 | Emergency (ER) | payer BC ==
--- NOTE | 2022-11-25 18:03 | ED ---
Lower Extremity Injury HPI - General Chief Complaint: Extremity Injury, Lower Stated Complaint: Referal- doppler- pain in leg right Time Seen by Provider: 11/25/22 18:02 Source: patient, RN notes reviewed Mode of arrival: wheelchair Limitations: no limitations - History of Present Illness Initial Comments: 62-year-old male presents emergency from with chief complaint of right leg pain, swelling. He is status post right knee replacement by Dr. Dodge patient was sent in by PCP for ultrasound to rule out DVT. - Related Data Home Medications Medication Instructions Recorded Confirmed Atorvastatin [Lipitor] 80 mg PO DAILY 06/11/22 11/13/22 Ezetimibe [Zetia] 10 mg PO DAILY 06/11/22 11/13/22 Potassium Chloride 10 meq PO DAILY 06/11/22 11/13/22 carvediloL [Coreg] 6.25 mg PO BID 06/11/22 11/13/22 Losartan/Hydrochlorothiazide 1 tab PO DAILY 11/13/22 11/13/22 [Hyzaar 100-12.5 Tablet] Phentermine HCl 1 tab PO DAILY 11/13/22 11/13/22 Previous Rx's Medication Instructions Recorded Aspirin 81 mg PO DAILY chew 10/03/19 Multivitamins, Thera [Multivitamin 1 each PO DAILY@1200 tab 11/18/22 (formulary)] Sennosides-Docusate Sodium 2 each PO HS tab 11/18/22 [Senokot-S] Apixaban [Eliquis] 2.5 mg PO BID 14 Days #28 tab 11/19/22 HYDROcodone/APAP 7.5-325MG [[place] 1 each PO Q4HR PRN #42 tab 11/19/22 7.5] Pregabalin [Lyrica] 75 mg PO BID 14 Days #21 cap 11/19/22 Sennosides/Docusate Sodium 2 each PO DAILY PRN #30 tablet 11/19/22 [Senna-S 8.6-50 mg Tablet] Allergies Allergy/AdvReac Type Severity Reaction Status Date / Time No Known Allergies Allergy Verified 11/25/22 17:57 Review of Systems ROS Statement: Those systems with pertinent positive or pertinent negative responses have been documented in the HPI. ROS Other: All systems not noted in ROS Statement are negative. Past Medical History Past Medical History: Diabetes Mellitus, Hyperlipidemia, Hypertension, Myocardial Infarction ([place]) Additional Past Medical History / Comment(s): diet controlled diabetes. difficulty swallowing Last Myocardial Infarction Date:: 11/05 History of Any Multi-Drug Resistant Organisms: None Reported Past Surgical History: Appendectomy, Bariatric Surgery, Heart Catheterization, Heart Catheterization With Stent, Hernia Repair Additional Past Surgical History / Comment(s): gastric sleeve 2015; stents X2 placed October 2019, right total knee replacement, Past Anesthesia/Blood Transfusion Reactions: No Reported Reaction Additional Past Anesthesia/Blood Transfusion Reaction / Comment(s): hard for patient to lay flat on back Date of Last Stent Placement:: 10/2019 Past Psychological History: No Psychological Hx Reported Smoking Status: Current every day smoker Past Alcohol Use History: Occasional Past Drug Use History: Marijuana - Past Family History Mother Family Medical History: No Reported History General Exam - General Exam Comments Initial Comments: Visual Physical Exam Vital signs reviewed General: Well-appearing, nontoxic, no acute distress. Head: Normocephalic, atraumatic Eyes: PERRLA, EOMI ENT: Airway patent Chest: Nonlabored breathing Skin: No visual rash, normal skin tone Neuro: Alert and oriented 3 Musculoskeletal: No gross abnormalities Limitations: no limitations General appearance: alert, in no apparent distress Head exam: Present: atraumatic, normocephalic, normal inspection Neck exam: Present: normal inspection. Absent: tenderness, meningismus, lymphadenopathy Respiratory exam: Present: normal lung sounds bilaterally. Absent: respiratory distress, wheezes, rales, rhonchi, stridor Cardiovascular Exam: Present: regular rate, normal rhythm, normal heart sounds. Absent: systolic murmur, diastolic murmur, rubs, gallop, clicks Extremities exam: Present: other (Right leg swelling noted, there is surgical incision healing, no purulent drainage) Course Vital Signs 11/25/22 17:53 Temperature 97.9 F Pulse Rate 56 L Respiratory 18 Rate Blood Pressure 119/80 O2 Sat by Pulse 96 Oximetry Medical Decision Making - Medical Decision Making I completed the quick note portion of this chart Signed Asim Gan PA-C Was pt. sent in by a medical professional or institution ([facility], [facility], urgent care, hospital, or snf...) When possible be specific @ -PCP Did you speak to anyone other than the patient for history (EMS, parent, family, police, friend...)? What history was obtained from this source @ -No Did you review nursing and triage notes (agree or disagree)? Why? @ -I reviewed and agree with nursing and triage notes Were old charts reviewed (outside hosp., previous admission, EMS record, old EKG, old radiological studies, urgent care reports/EKG's, snf records)? Report findings @ -No old charts were reviewed Differential Diagnosis (chest pain, altered mental status, abdominal pain women, abdominal pain men, vaginal bleeding, weakness, fever, dyspnea, syncope, headache, dizziness, GI bleed, back pain, seizure, CVA, palpatations, mental health, musculoskeletal)? @ -Postsurgical swelling, leg edema, DVT EKG interpreted by me (3pts min.). @ -None X-rays interpreted by me (1pt min.). @ -None done CT interpreted by me (1pt min.). @ -None done U/S interpreted by me (1pt. min.). @ -Ultrasound right leg shows no evidence DVT What testing was considered but not performed or refused? (CT, X-rays, U/S, labs)? Why? @ -None What meds were considered but not given or refused? Why? @ -None Did you discuss the management of the patient with other professionals (professionals i.e. , PA, SHINGLE TRIMMER, lab, RT, psych nurse, social problems specialist, alumni relations coordinator, teacher, antisubmarine weapons officer, rn field case manager)? Give summary @ -No Was smoking cessation discussed for >3mins.? @ -No Was critical care preformed (if so, how long)? @ -No Were there social determinants of health that impacted care today? How? (Homelessness, low income, unemployed, alcoholism, drug addiction, transportati on, low edu. Level, literacy, decrease access to med. care, [place] [facility], rehab)? @ -No Was there de-escalation of care discussed even if they declined (Discuss DNR or withdrawal of care, Hospice)? DNR status @ -No] What co-morbidities impacted this encounter? (DM, HTN, Smoking, COPD, CAD, Cancer, CVA, ARF, Chemo, Hep., AIDS, mental health diagnosis, sleep apnea, morbid obesity)? @ -[None] Was patient admitted / discharged? Hospital course, mention meds given and route, prescriptions, significant lab abnormalities, going to OR and other pertinent info. @ -[Patient was to be discharged patient left AGAINST MEDICAL ADVICE prior to finding out results] Undiagnosed new problem with uncertain prognosis? @ -[No] Drug Therapy requiring intensive monitoring for toxicity (Heparin, Nitro, Insulin, Cardizem)? @ -[No] Were any procedures done? @ -[No] Diagnosis/symptom? @ -[Leg edema] Acute, or Chronic, or Acute on Chronic? @ -[Acute] Uncomplicated (without systemic symptoms) or Complicated (systemic symptoms)? @ -[Uncomplicated] Side effects of treatment? @ -[No] Exacerbation, Progression, or Severe Exacerbation? @ -[No] Poses a threat to life or bodily function? How? (Chest pain, [place], [place], pneumonia, PE, COPD, DKA, ARF, appy, cholecystitis, CVA, Diverticulitis, Homicidal, Suicidal, threat to staff... and all critical care pts) @ -[No] Disposition Clinical Impression: Right leg swelling Disposition: LEFT AGAINST MEDICAL ADVICE Condition: Stable Instructions (If sedation given, give patient instructions): Leg Edema (ED) Additional Instructions: Please return to the Emergency Department if symptoms worsen or any other concerns. Is patient prescribed a controlled substance at d/c from ED?: No Referrals: Roosevelt العلي MD [Primary Care Provider] - 1-2 days Time of Disposition: 19:53
[2022-11-25 18:11] VITALS: BP 119/80; PULSE 56; RESP 18; TEMP 97.9
--- NOTE | 2022-11-25 19:30 | US ---
EXAMINATION TYPE: US venous doppler duplex LE RT DATE OF EXAM: 11/25/2022 6:20 PM COMPARISON: NONE CLINICAL INDICATION: Male, 62 years old with history of pain; Right knee surgery 11/17/22. Pain behind knee up to hip since surgery. No hx of DVT. Is taking aspirin since surgery SIDE PERFORMED: Right TECHNIQUE: The lower extremity deep venous system is examined utilizing real time linear array sonog ramírez with graded compression, doppler sonography and color-flow sonography. VESSELS IMAGED: Common Femoral Vein Deep Femoral Vein Greater Saphenous Vein * Femoral Vein Popliteal Vein Small Saphenous Vein * Proximal Calf Veins (* superficial vessels) Right Leg: No evidence for DVT in vessels visualized. Calf veins limited due to body habitus. Distal popliteal vein slightly limited due to pt unable to bend knee. IMPRESSION: 1. Right lower extremity ultrasound negative for deep venous thrombosis. Some limitation as discussed above
== END 2022-11-25 21:00 | disposition left against medical advice (07) ==
LOC: EC 17:22
DX: M79.89 Other specified soft tissue disorders (principal); R60.0 Localized edema; E11.9 Type 2 diabetes mellitus without complications; I10 Essential (primary) hypertension; I25.2 Old myocardial infarction; E78.5 Hyperlipidemia, unspecified; F17.200 Nicotine dependence, unspecified, uncomplicated; F12.90 Cannabis use, unspecified, uncomplicated; Z53.29 Procedure and treatment not carried out because of patient's decision for other reasons; Z79.899 Other long term (current) drug therapy; Z90.49 Acquired absence of other specified parts of digestive tract; Z95.5 Presence of coronary angioplasty implant and graft
CPT/HCPCS: 99283

== ENCOUNTER 2023-03-14 10:43 | Inpatient (IN) | payer BC ==
[2023-03-14] MEDS ORDERED: IPRATROPIUM-ALBUTEROL 3 ML NEB INHALATION STA (10:53)
[2023-03-14] MEDS ORDERED: methylPREDNISolone SOD SUCCI 125 MG/2 ML VIAL IV STA (10:53)
--- NOTE | 2023-03-14 10:56 | ED ---
General Adult HPI - General Stated complaint: loreto Time Seen by Provider: 03/14/23 10:49 Source: patient, EMS, RN notes reviewed, old records reviewed, Caregiver Limitations: no limitations - History of Present Illness Initial comments: Patient is a pleasant 62-year-old male presenting to the emergency department with difficulty breathing. Onset of symptoms was around 3 days ago. Patient does have cough with occasional sputum. No fevers at home. Patient has had some fatigue. Patient is a smoker, however has not smoked in the last couple of days. Patient did have nebulizer in route with some improvement of symptoms. No leg pain or leg swelling. - Related Data Home Medications Medication Instructions Recorded Confirmed Atorvastatin [Lipitor] 80 mg PO DAILY 06/11/22 11/13/22 Ezetimibe [Zetia] 10 mg PO DAILY 06/11/22 11/13/22 Potassium Chloride 10 meq PO DAILY 06/11/22 11/13/22 carvediloL [Coreg] 6.25 mg PO BID 06/11/22 11/13/22 Losartan/Hydrochlorothiazide 1 tab PO DAILY 11/13/22 11/13/22 [Hyzaar 100-12.5 Tablet] Phentermine HCl 1 tab PO DAILY 11/13/22 11/13/22 Previous Rx's Medication Instructions Recorded Aspirin 81 mg PO DAILY chew 10/03/19 Multivitamins, Thera [Multivitamin 1 each PO DAILY@1200 tab 11/18/22 (formulary)] Sennosides-Docusate Sodium 2 each PO HS tab 11/18/22 [Senokot-S] Apixaban [Eliquis] 2.5 mg PO BID 14 Days #28 tab 11/19/22 HYDROcodone/APAP 7.5-325MG [[place] 1 each PO Q4HR PRN #42 tab 11/19/22 7.5] Pregabalin [Lyrica] 75 mg PO BID 14 Days #21 cap 11/19/22 Sennosides/Docusate Sodium 2 each PO DAILY PRN #30 tablet 11/19/22 [Senna-S 8.6-50 mg Tablet] Allergies Allergy/AdvReac Type Severity Reaction Status Date / Time No Known Allergies Allergy Verified 03/14/23 11:37 Review of Systems ROS Statement: Those systems with pertinent positive or pertinent negative responses have been documented in the HPI. ROS Other: All systems not noted in ROS Statement are negative. Constitutional: Denies: fever Eyes: Denies: eye pain ENT: Denies: ear pain Respiratory: Reports: as per HPI, cough, dyspnea Cardiovascular: Denies: chest pain Gastrointestinal: Denies: abdominal pain Genitourinary: Denies: dysuria Musculoskeletal: Denies: back pain Past Medical History Past Medical History: Diabetes Mellitus, Hyperlipidemia, Hypertension, Myocardial Infarction (CA) Additional Past Medical History / Comment(s): diet controlled diabetes. difficulty swallowing Last Myocardial Infarction Date:: 11/05 History of Any Multi-Drug Resistant Organisms: None Reported Past Surgical History: Appendectomy, Bariatric Surgery, Heart Catheterization, Heart Catheterization With Stent, Hernia Repair Additional Past Surgical History / Comment(s): gastric sleeve 2015; stents X2 placed October 2019, right total knee replacement, Past Anesthesia/Blood Transfusion Reactions: No Reported Reaction Additional Past Anesthesia/Blood Transfusion Reaction / Comment(s): hard for patient to lay flat on back Date of Last Stent Placement:: 10/2019 Smoking Status: Current every day smoker - Past Family History Mother Family Medical History: No Reported History General Exam Limitations: no limitations General appearance: alert, in no apparent distress Head exam: Present: normocephalic Eye exam: Present: normal appearance Neck exam: Present: normal inspection Respiratory exam: Present: wheezes Cardiovascular Exam: Present: regular rate, normal rhythm GI/Abdominal exam: Present: soft. Absent: tenderness Extremities exam: Present: normal inspection. Absent: pedal edema, calf tenderness Neurological exam: Present: alert Psychiatric exam: Present: normal affect, normal mood Skin exam: Present: normal color Course Vital Signs 03/14/23 03/14/23 03/14/23 10:50 11:37 11:45 Temperature 98.9 F Pulse Rate 128 H 105 H 123 H Respiratory 28 H Rate Blood Pressure 149/89 O2 Sat by Pulse 90 L Oximetry Medical Decision Making - Medical Decision Making Was pt. sent in by a medical professional or institution ([facility], SHOWCASE TRIMMER, urgent care, hospital, or care home...) When possible be specific @ -Patient was at urgent care Did you speak to anyone other than the patient for history (EMS, parent, family, police, friend...)? What history was obtained from this source @ -EMS also provided history including transportation and nebulizer provided Did you review nursing and triage notes (agree or disagree)? Why? @ -I reviewed and agree with nursing and triage notes Were old charts reviewed (outside hosp., previous admission, EMS record, old EKG, old radiological studies, urgent care reports/EKG's, care home records)? Report findings @ -No old charts were reviewed Differential Diagnosis (chest pain, altered mental status, abdominal pain women, abdominal pain men, vaginal bleeding, weakness, fever, dyspnea, syncope, headach e, dizziness, GI bleed, back pain, seizure, CVA, palpatations, mental health, musculoskeletal)? @ -Differential Dyspnea: Coronary syndrome, arrhythmia, tamponade, asthma, COPD, pulmonary embolism, pneumonia, pneumothorax, pulmonary effusion, anaphylaxis, diabetic ketoacidosis, flailed chest, pulmonary contusion, diaphragmatic rupture, anemia, neuromuscular, this is not meant to be an all-inclusive list. EKG interpreted by me (3pts min.). @ -As above X-rays interpreted by me (1pt min.). @ -Chest x-ray shows possible right lower lobe early infiltrate CT interpreted by me (1pt min.). @ -CT negative for pulmonary embolism. No evidence of infiltrate U/S interpreted by me (1pt. min.). @ -None done What testing was considered but not performed or refused? (CT, X-rays, U/S, labs)? Why? @ -None What meds were considered but not given or refused? Why? @ -Considered heparin drip however patient is on Xarelto Also considered Cardizem however heart rate improved Did you discuss the management of the patient with other professionals (professionals i.e. , PA, SHOWCASE TRIMMER, lab, RT, psych nurse, social services counselor, log carrier operator, teacher, coastal/harbor defense officer, showcase trimmer)? Give summary @ -Case discussed with Dr. العلي who did come evaluate patient and will admit. Was smoking cessation discussed for >3mins.? @ -I discussed smoking cessation for greater than 3 minutes. The risk of smoking were discussed with the patient including but not limited to risks of cancer, stroke, coronary artery disease and COPD. Also discussed with patient were multiple methods of quitting smoking. Lastly we discussed the financial cost of smoking. Was critical care preformed (if so, how long)? @ -No Were there social determinants of health that impacted care today? How? (Homelessness, low income, unemployed, alcoholism, drug addiction, transport ation, low edu. Level, literacy, decrease access to med. care, alf, rehab)? @ -No Was there de-escalation of care discussed even if they declined (Discuss DNR or withdrawal of care, Hospice)? DNR status @ -No What co-morbidities impacted this encounter? (DM, HTN, Smoking, COPD, CAD, Cancer, CVA, ARF, Chemo, Hep., AIDS, mental health diagnosis, sleep apnea, morbid obesity)? @ -None Was patient admitted / discharged? Hospital course, mention meds given and route, prescriptions, significant lab abnormalities, going to OR and other pertinent info. @ -Patient reevaluated and improved. Patient still has wheezing however not as severe. Patient feels he is breathing better. Patient and family are unaware of any history of atrial fibrillation or flutter however there has been some evaluation including recently and some questionable irregular monitor/EKG Undiagnosed new problem with uncertain prognosis? @ -No Drug Therapy requiring intensive monitoring for toxicity (Heparin, Nitro, Insulin, Cardizem)? @ -No Were any procedures done? @ -No Diagnosis/symptom? @ -New-onset A. fib flutter, influenza, bronchospasm Acute, or Chronic, or Acute on Chronic? @ -Acute, acute, acute Uncomplicated (without systemic symptoms) or Complicated (systemic symptoms)? @ -default Side effects of treatment? @ -No Exacerbation, Progression, or Severe Exacerbation? @ -No Poses a threat to life or bodily function? How? (Chest pain, [place], CA, pneumonia, PE, COPD, DKA, ARF, appy, cholecystitis, CVA, Diverticulitis, Homicidal, Suicidal, threat to staff... and all critical care pts) @ -No - Lab Data Result diagrams: 03/14/23 11:15 03/14/23 11:15 Lab Results 03/14/23 03/14/23 03/14/23 Range/Units 11:15 11:15 11:15 WBC 8.1 (3.8-10.6) k/uL RBC 5.17 (4.30-5.90) m/uL Hgb 14.9 (13.0-17.5) gm/dL Hct 45.2 (39.0-53.0) % MCV 87.3 (80.0-100.0) fL MCH 28.9 (25.0-35.0) pg MCHC 33.1 (31.0-37.0) g/dL RDW 14.4 (11.5-15.5) % Plt Count 127 L (150-450) k/uL MPV 8.7 Neutrophils % 80 % Lymphocytes % 6 % Monocytes % 11 % Eosinophils % 0 % Basophils % 0 % Neutrophils # 6.5 (1.3-7.7) k/uL Lymphocytes # 0.5 L (1.0-4.8) k/uL Monocytes # 0.9 (0-1.0) k/uL Eosinophils # 0.0 (0-0.7) k/uL Basophils # 0.0 (0-0.2) k/uL PT 11.2 (10.0-12.5) sec INR 1.0 (<1.2) APTT 25.6 (22.0-30.0) sec D-Dimer 1.09 H (<0.60) mg/L FEU Sodium (137-145) mmol/L Potassium (3.5-5.1) mmol/L Chloride (98-107) mmol/L Carbon Dioxide (22-30) mmol/L Anion Gap mmol/L BUN (9-20) mg/dL Creatinine (0.66-1.25) mg/dL Est GFR (CKD-EPI)AfAm (>60 ml/min/1.73 sqM) Est GFR (CKD-EPI)NonAf (>60 ml/min/1.73 sqM) Glucose (74-99) mg/dL Plasma Lactic Acid [place] (0.7-2.0) mmol/L Calcium (8.4-10.2) mg/dL Magnesium (1.6-2.3) mg/dL Total Bilirubin (0.2-1.3) mg/dL AST (17-59) U/L ALT (4-49) U/L Alkaline Phosphatase (38-126) U/L Troponin I (0.000-0.034) ng/mL NT-Pro-B Natriuret Pep pg/mL Total Protein (6.3-8.2) g/dL Albumin (3.5-5.0) g/dL Influenza Type A (PCR) Detected A (Not Detectd) Influenza Type B (PCR) Not Detected (Not Detectd) RSV (PCR) Not Detected (Not Detectd) SARS-CoV-2 (PCR) Not Detected (Not Detectd) 03/14/23 03/14/23 03/14/23 Range/Units 11:15 11:15 11:15 WBC (3.8-10.6) k/uL RBC (4.30-5.90) m/uL Hgb (13.0-17.5) gm/dL Hct (39.0-53.0) % MCV (80.0-100.0) fL MCH (25.0-35.0) pg MCHC (31.0-37.0) g/dL RDW (11.5-15.5) % Plt Count (150-450) k/uL MPV Neutrophils % % Lymphocytes % % Monocytes % % Eosinophils % % Basophils % % Neutrophils # (1.3-7.7) k/uL Lymphocytes # (1.0-4.8) k/uL Monocytes # (0-1.0) k/uL Eosinophils # (0-0.7) k/uL Basophils # (0-0.2) k/uL PT (10.0-12.5) sec INR (<1.2) APTT (22.0-30.0) sec D-Dimer (<0.60) mg/L FEU Sodium 138 (137-145) mmol/L Potassium 3.8 (3.5-5.1) mmol/L Chloride 103 (98-107) mmol/L Carbon Dioxide 28 (22-30) mmol/L Anion Gap 7 mmol/L BUN 13 (9-20) mg/dL Creatinine 0.58 L (0.66-1.25) mg/dL Est GFR (CKD-EPI)AfAm >90 (>60 ml/min/1.73 sqM) Est GFR (CKD-EPI)NonAf >90 (>60 ml/min/1.73 sqM) Glucose 94 (74-99) mg/dL Plasma Lactic Acid [place] 0.9 (0.7-2.0) mmol/L Calcium 8.2 L (8.4-10.2) mg/dL Magnesium 1.6 (1.6-2.3) mg/dL Total Bilirubin 1.0 (0.2-1.3) mg/dL AST 42 (17-59) U/L ALT 26 (4-49) U/L Alkaline Phosphatase 110 (38-126) U/L Troponin I <0.012 (0.000-0.034) ng/mL NT-Pro-B Natriuret Pep 640 pg/mL Total Protein 6.9 (6.3-8.2) g/dL Albumin 3.6 (3.5-5.0) g/dL Influenza Type A (PCR) (Not Detectd) Influenza Type B (PCR) (Not Detectd) RSV (PCR) (Not Detectd) SARS-CoV-2 (PCR) (Not Detectd) Disposition Clinical Impression: Wheezing, Atrial flutter, Influenza Disposition: ADMITTED IP TO THIS HOSP Is patient prescribed a controlled substance at d/c from ED?: No Referrals: Roosevelt العلي MD [Primary Care Provider] - 1-2 days Time of Disposition: 14:33
[2023-03-14 11:48] LABS: Partial Thromboplastin Time 25.6 sec (22.0-30.0); Prothrombin Time 11.2 sec (10.0-12.5)
[2023-03-14 11:50] LABS: Basophils % (A) 0 %; Eosinophils % (A) 0 %; HCT 45.2 % (39.0-53.0); HGB 14.9 gm/dL (13.0-17.5); Lymphocytes # (A) 0.5 k/uL (1.0-4.8); Lymphocytes % (A) 6 %; MCH 28.9 pg (25.0-35.0); MCHC 33.1 g/dL (31.0-37.0); MCV 87.3 fL (80.0-100.0); Mean Platelet Volume 8.7; Monocytes # (A) 0.9 k/uL (0-1.0); Monocytes % (A) 11 %; Neutrophils # (A) 6.5 k/uL (1.3-7.7); Neutrophils % (A) 80 %; Platelet Count 127 k/uL (150-450); RBC 5.17 m/uL (4.30-5.90); RDW 14.4 % (11.5-15.5); WBC 8.1 k/uL (3.8-10.6)
[2023-03-14 11:58] LABS: ALT 26 U/L (4-49); AST 42 U/L (17-59); African American GFR (CKD) >90 (>60 ml/min/1.73 sqM); Albumin 3.6 g/dL (3.5-5.0); Alkaline Phosphatase 110 U/L (38-126); Anion Gap 7 mmol/L; Blood Urea Nitrogen 13 mg/dL (9-20); Calcium 8.2 mg/dL (8.4-10.2); Carbon Dioxide 28 mmol/L (22-30); Chloride 103 mmol/L (98-107); Glucose 94 mg/dL (74-99); Magnesium 1.6 mg/dL (1.6-2.3); Non-African American GFR(CKD) >90 (>60 ml/min/1.73 sqM); Sodium 138 mmol/L (137-145); Total Protein 6.9 g/dL (6.3-8.2)
[2023-03-14 12:06] LABS: NT-Pro-B-Type Natriuretic Pept 640 pg/mL
[2023-03-14 12:07] LABS: Potassium 3.8 mmol/L (3.5-5.1)
--- NOTE | 2023-03-14 12:11 | XR ---
EXAMINATION TYPE: XR chest 2V DATE OF EXAM: 03/14/2023 COMPARISON: 02/20/2022 INDICATION: Difficulty breathing TECHNIQUE: Frontal and lateral views of the chest are obtained. FINDINGS: The heart size is normal. The pulmonary vasculature is normal. Some subtle increased densities at the right lung base. Correlate for atelectasis. Developing pneumon ia could be considered. Follow-up is recommended IMPRESSION: 1. Minimal developing right lower lobe infiltrate may be present. Follow-up exams are recommended. Co rrelate for pneumonia and atelectasis.
--- NOTE | 2023-03-14 13:38 | CT ---
CTA CHEST EXAMINATION TYPE: CT angio chest DATE OF EXAM: 03/14/2023 INDICATION: dyspnea CT DLP: 1428.6 mGycm, Automated exposure control for dose reduction was used. CONTRAST: Patient injected with 100ml mL of Isovue 370. COMPARISON: None TECHNIQUE: CT of the chest is performed on a spiral scan at 2 mm thick sections. Study is performed with intravenous contrast timed for evaluation for pulmonary embolism. This will limit additional po rtions of the evaluation. 3-D MIP images reconstructed by the technologist are reviewed on the compu ter in the coronal and sagittal planes. FINDINGS: No persistent filling defects are evident to suggest an acute pulmonary embolism. No mediastinal or hilar adenopathy enlarged by CT criteria is evident. Multiple small shotty lymph n odes within the mediastinum. The ascending aorta diameter at the level of the main pulmonary artery is 4.3 cm. The main pulmonary artery diameter at the bifurcation is 3.5 cm. Some coronary artery calcification is present. Small hiatal hernia is present. Lung windows are clear. Limited CT sections were through the upper abdomen. Upper abdomen appears unremarkable. IMPRESSION: 1. No acute pulmonary embolism.
[2023-03-14] MEDS ORDERED: NALOXONE 0.4 MG/ML 1 ML VIAL IVP PRN (14:34)
[2023-03-14] MEDS ORDERED: ACETAMINOPHEN TAB 325 MG TAB PO PRN (14:34)
[2023-03-14] MEDS ORDERED: IPRATROPIUM-ALBUTEROL 3 ML NEB INHALATION PRN (14:34)
[2023-03-14] MEDS ORDERED: HEPARIN SODIUM 1,000 UN/ML (10ML VL) IV ONE (14:41)
[2023-03-14] MEDS ORDERED: HEPARIN SODIUM 1,000 UN/ML (10ML VL) IV PRN (14:41)
[2023-03-14] MEDS ORDERED: DILTIAZEM 125 MG in SODIUM CHLORIDE 0.9% 100 ML IV SCH (14:45)
[2023-03-14] MEDS ORDERED: HEPARIN SOD,PORK IN 0.45% NACL 25,000 UNIT in 0.45% NACL 1 250ML.BAG IV SCH (14:45)
--- NOTE | 2023-03-14 14:58 | P.HPIM ---
History of Present Illness H&P Date: 03/14/23 Chief Complaint: Atrial fib/flutter with RVR/influenza A HISTORY OF PRESENT ILLNESS: This is a 62-year-old male with a previous medical history significant for hypertension and hypertensive cardiovascular disease, hyperlipidemia, coronary artery disease status post PCI of the LAD as well as the obtuse marginal branch #2 with moderate disease of the RCA back in 2019, super morbid obesity status post sleeve gastrectomy back in 2013, currently getting phentermine 37.5 mg orally once every day, patient was in his usual state of health with about 2 days ago when he came down with a scratchy throat associated with low-grade temperature and increased shortness of breath, today in the morning he was coughing some white phlegm associated with increased difficulty breathing [facility] and he was found to have influenza A but his oxygen saturation was around 88%, so he was referred to the emergency department at [facility], he was seen in the ER by Dr. Seals had a chest x-ray that showed possible developing infiltrate in the right lower lobe, his D- dimer came back elevated, his oxygenation was 90% on room air, he was placed on 3 L nasal cannula, he was given nebulized treatment, and he was sent for CT angiography of the chest that showed thoracic aortic aneurysm at 4.3 cm without evidence of pulmonary infiltrate or pulmonary embolism, patient was started on heparin drip as well as Cardizem drip, he was also started on Tamiflu 75 mg orally twice every day, he was admitted to the hospital to be evaluated by cardiology as well as pulmonary medicine. REVIEW OF SYSTEMS: Constitutional: low grade fever, no chills, no night sweats. No weight change. No weakness, fatigue or lethargy. No daytime sleepiness. HEENT: No headache. No blurred vision or double vision, no loss of vision. No loss of Hearing, no ringing in the ears, no dizziness. No nasal drainage or congestion. No epistaxis. No sore throat. Lungs: positive for shortness of breath, positive for cough, positive for white sputum production. positive for wheezing. Reports dyspnea with activity. Cardiovascular: No chest pain, no lower extremity edema. No palpitations. No paroxysmal nocturnal dyspnea. No orthopnea. No lightheadedness or dizziness. No syncopal episodes. Abdominal: Reports no abdominal pain. No nausea, vomiting. No diarrhea. No constipation. No bloody or tarry stools reports loss of appetite. Genitourinary: No dysuria, increased frequency, urgency. No urinary retention. Musculoskeletal: No myalgias. No muscle weakness, no gait dysfunction, no frequent falls. No back pain. No neck pain. Integumentary: no wounds, no lesions. No rash or pruritus. No unusual bruising. No change in hair or nails. Neurologic: No aphasia. No facial droop. No change in mentation. No head injury. No headache. No paralysis. No paresthesia. Psychiatric: No depression. No anxiety. No mood swings. Endocrine: No abnormal blood sugars. No weight change. PAST MEDICAL HISTORY: Hypertension and hypertensive cardiovascular disease. Hyperlipidemia. CAD post-PCI of the LAD and OM to moderate disease of the RCA Obesity status post sleeve gastrectomy 2013 Osteoarthritis BPH Tobacco use. COPD PAST SURGICAL HISTORY: Appendectomy. sleeve gastrectomy 2013 Left heart catheterization with PCI of the OM 2 and LAD and moderate disease of the RCA Umbilical hernia repair Colonoscopy. Left TKA 06/2022 Right TKA 11/2022 SOCIAL HISTORY: patient smokes about half a pack every day since he was 17-year-old and he continues to smoke, he denies any drug use or abuse. FAMILY HISTORY: father at age of 72 from massive CO as well as overweight, mother at age of 70 from throat cancer, patient has one brother 57-year-old with history of diabetes mellitus type 1 on insulin pump, patient has 3 sisters alive and well, 1 daughter no major medical problems. PHYSICAL EXAMINATION: General: 62-year-old male sitting up in chair with loreto HEENT: Head is atraumatic, normocephalic, pupils were equal round reactive to light and recommendation, extraocular muscle movement were intact, sclera nonicteric, conjunctivae were pale, mucous membranes of the mouth are somewhat dry. Neck: Supple, no JVP, normal carotid upstroke bilaterally, no lymphadenopathy. Chest: Decreased breath sounds at the bases, few rhonchi, minimal expiratory wheezes, no chest wall tenderness, no intercostal retractions. Heart: First heart sound is normal, second heart sound is normal there is JAVIER 2/6 located at the left sternal border, irregularly irregular Abdomen: Soft, nontender, nondistended, positive bowel sounds. Extremities: There is +1 edema no calf tenderness DP +2 bilaterall. Neurologic examination: Patient is awake alert and oriented X 3 , cranial nerves II-12 appear grossly intact, muscle power were 5 out of 5 in upper extremities and 5 out of 5 in bilateral lower extremities, deep tendon reflexes normal bilaterally. ASSESSMENT AND PLAN: 1. Acute hypoxemic respiratory failure due to acute diastolic heart failure due to atrial fibrillation/flutter with RVR , influenza A, and COPD exacerbation. Started the patient on heparin drip, Cardizem drip, 5 mg/ hour, started the patient on DuoNeb 3 mL nebulization 4 times every day, start the patient on Solu-Medrol 60 mg IV push every 6 hours [id number], pulmonary consultation, cardiology consultation, echocardiogram for evaluation of LV function, monitor the patient very closely. 2. Influenza A. Started patient on Tamiflu 75 mg orally twice a day for 5 days, continue patient on oxygen 3 L nasal cannula, continue DuoNeb 3 mL nebulizer 4 times every day, continue Solu-Medrol 60 mg IV push every 6 hours pulmonary consultation. Start the patient on Pulmicort 1 mg nebulization twice every day as well. 3. New onset atrial fibrillation/flutter. Continue Cardizem drip, continue heparin drip, monitor the patient symptoms very closely, cardiology co nsultation, echocardiogram. 4. Hypertension and hypertensive cardiovascular disease . Continue patient on carvedilol 6.25 mg orally twice every day, continue losartan 100/12.5 mg orally once every day, oxygen the patient blood pressure very closely. 5. Mixed hyperlipidemia. Continue atorvastatin 80 mg orally once every day, Zetia 10 mg once every day, keep LDL 55-70. 6. Osteoarthritis. Post bilateral total knee arthroplasties. 7. CAD post-PCI of the LAD and obtuse marginal branch 2. Continue patient on aspirin 81 mg once every day, continue carvedilol 6.25 mg orally twice every day as well as atorvastatin 80 mg orally once every day. 8. Super morbid obesity. Patient has been on phentermine we will hold for now. 9. DVT prophylaxis patient was started on heparin drip. 10. GI prophylaxis. Start Protonix 40 mg orally once every day. 11. Right hydrocele. Reassured about the benign nature of the illness, will continue to monitor, patient may need to have this taken care of as an outpatient with urology. 12. Admit to inpatient. Estimated length of stay 2 midnights. 13. Full code. Past Medical History Past Medical History: Diabetes Mellitus, Hyperlipidemia, Hypertension, Myocardial Infarction ([place]) Additional Past Medical History / Comment(s): diet controlled diabetes. difficulty swallowing Last Myocardial Infarction Date:: 11/05 History of Any Multi-Drug Resistant Organisms: None Reported Past Surgical History: Appendectomy, Bariatric Surgery, Heart Catheterization, Heart Catheterization With Stent, Hernia Repair Additional Past Surgical History / Comment(s): gastric sleeve 2015; stents X2 placed October 2019, right total knee replacement, Past Anesthesia/Blood Transfusion Reactions: No Reported Reaction Additional Past Anesthesia/Blood Transfusion Reaction / Comment(s): hard for patient to lay flat on back Date of Last Stent Placement:: 10/2019 Smoking Status: Current every day smoker - Past Family History Mother Family Medical History: No Reported History Medications and Allergies Home Medications Medication Instructions Recorded Confirmed Type Aspirin 81 mg PO DAILY chew 10/03/19 11/13/22 Rx Atorvastatin [Lipitor] 80 mg PO DAILY 06/11/22 11/13/22 History Ezetimibe [Zetia] 10 mg PO DAILY 06/11/22 11/13/22 History Potassium Chloride 10 meq PO DAILY 06/11/22 11/13/22 History carvediloL [Coreg] 6.25 mg PO BID 06/11/22 11/13/22 History Losartan/Hydrochlorothiazide 1 tab PO DAILY 11/13/22 11/13/22 History [Hyzaar 100-12.5 Tablet] Phentermine HCl 1 tab PO DAILY 11/13/22 11/13/22 History Multivitamins, Thera [Multivitamin 1 each PO DAILY@1200 tab 11/18/22 Rx (formulary)] Sennosides-Docusate Sodium 2 each PO HS tab 11/18/22 Rx [Senokot-S] Apixaban [Eliquis] 2.5 mg PO BID 14 Days #28 tab 11/19/22 Rx HYDROcodone/APAP 7.5-325MG [[place] 1 each PO Q4HR PRN #42 tab 11/19/22 Rx 7.5] Pregabalin [Lyrica] 75 mg PO BID 14 Days #21 cap 11/19/22 Rx Sennosides/Docusate Sodium 2 each PO DAILY PRN #30 tablet 11/19/22 Rx [Senna-S 8.6-50 mg Tablet] Allergies Allergy/AdvReac Type Severity Reaction Status Date / Time No Known Allergies Allergy Verified 03/14/23 11:37 Physical Exam Vitals: Vital Signs Temp Pulse Resp BP Pulse Ox 03/14/23 11:45 123 H 03/14/23 11:37 105 H 03/14/23 10:50 98.9 F 128 H 28 H 149/89 90 L Intake and Output 03/13/23 03/14/23 03/14/23 22:59 06:59 14:59 Other: Weight 160.118 kg Results CBC & Chem 7: 03/14/23 11:15 03/14/23 11:15 Labs: Abnormal Lab Results - Last 24 Hours (Table) 03/14/23 03/14/23 03/14/23 Range/Units 11:15 11:15 11:15 Plt Count 127 L (150-450) k/uL Lymphocytes # 0.5 L (1.0-4.8) k/uL D-Dimer 1.09 H (<0.60) mg/L FEU Creatinine (0.66-1.25) mg/dL Calcium (8.4-10.2) mg/dL Influenza Type A (PCR) Detected A (Not Detectd) 03/14/23 Range/Units 11:15 Plt Count (150-450) k/uL Lymphocytes # (1.0-4.8) k/uL D-Dimer (<0.60) mg/L FEU Creatinine 0.58 L (0.66-1.25) mg/dL Calcium 8.2 L (8.4-10.2) mg/dL Influenza Type A (PCR) (Not Detectd)
[2023-03-14] MEDS: OSELTAMIVIR 75 MG CAP PO SCH ×2 (15:12→20:30)
[2023-03-14] MEDS: IPRATROPIUM-ALBUTEROL 3 ML NEB INHALATION SCH ×2 (15:28→22:05)
[2023-03-14] MEDS: carvediloL 6.25 MG TAB PO SCH (18:56)
[2023-03-14] MEDS: methylPREDNISolone SOD SUCCI 125 MG/2 ML VIAL IV SCH ×2 (19:05→23:23)
[2023-03-14] MEDS: SENNOSIDES-DOCUSATE SODIUM 1 EACH TAB PO SCH (20:31)
[2023-03-14] MEDS ORDERED: METOPROLOL SUCCINATE (ER) 25 MG TAB.ER.24H PO SCH (21:00)
[2023-03-14] MEDS ORDERED: APIXABAN 2.5 MG TABLET PO SCH (21:00)
[2023-03-14] MEDS: BUDESONIDE 1 MG/2 ML NEBU INHALATION SCH (22:05)
[2023-03-15] MEDS: PANTOPRAZOLE 40 MG TABLET PO SCH (06:07)
[2023-03-15] MEDS: carvediloL 6.25 MG TAB PO SCH (06:07)
[2023-03-15] MEDS: methylPREDNISolone SOD SUCCI 125 MG/2 ML VIAL IV SCH (06:11)
--- NOTE | 2023-03-15 07:50 | CA ---
Transthoracic Echo Report Name: Moustapha Martinez Age: 62 Gender: M : 1960 Exam Date: 03/14/2023 15:47 Exam Location: [place] [facility] Ht (in): 71 Wt (lb): 353 Ordering Physician: Roosevelt العلي MD Attending/Referring Phys: Cinder Crusher Operator Eli Webster RDCS Procedure CPT: Indications: atrial fibrillation Cardiac Hx: Technical Quality: Very technically difficult study Contrast 1: Definity Total Dose (mL): 4 Contrast 2: Total Dose (mL): MEASUREMENTS (Male / Female) Normal Values 2D ECHO LV Diastolic Diameter PLAX 5.7 cm 4.2 - 5.9 / 3.9 - 5.3 cm LV Systolic Diameter PLAX 4.4 cm IVS Diastolic Thickness 1.6 cm 0.6 - 1.0 / 0.6 - 0.9 cm LVPW Diastolic Thickness 1.7 cm 0.6 - 1.0 / 0.6 - 0.9 cm LV Relative Wall Thickness 0.6 RV Internal Dim ED PLAX 3.3 cm LA Systolic Diameter LX 4.0 cm 3.0 - 4.0 / 2.7 - 3.8 cm M-MODE Aortic Root Diameter MM 4.2 cm MV E Point Septal Separation 1.1 cm AV Cusp Separation MM 2.5 cm DOPPLER AV Peak Velocity 123.6 cm/s AV Peak Gradient 6.1 mmHg MV Area PHT 3.9 cm??? Mitral E Point Velocity 70.2 cm/s Mitral A Point Velocity 89.5 cm/s Mitral E to A Ratio 0.8 MV Deceleration Time 192.5 ms TR Peak Velocity 244.1 cm/s TR Peak Gradient 23.8 mmHg Right Ventricular Systolic Press 28.8 mmHg FINDINGS Left Ventricle Left ventricular ejection fraction is estimated at 50-55 %. Left ventricular cavity size normal. Moderate concentric left ventricular hypertrophy. Right Ventricle Right ventricular dilatation. Right ventricular systolic pressure within normal limits. Right Atrium Right atrium not well visualized. Left Atrium Left atrial dilatation. Mitral Valve Structurally normal mitral valve. No mitral stenosis. No evidence for mitral valve prolapse. Aortic Valve Aortic valve not well visualized. No aortic valve stenosis or regurgitation. Tricuspid Valve Structurally normal tricuspid valve. Mild tricuspid regurgitation. Pulmonic Valve Pulmonic valve not well visualized. Pericardium No pericardial effusion. Aorta Moderate aortic dilatation at the level of the sinuses of valsalva 42 mm CONCLUSIONS Technically suboptimal study secondary to poor echo windows Normal left ventricular systolic function Dilated aortic root measuring 4.2 cm Previewed by: Dr. Kristofer Reynolds MD (Electronically Signed) Final Date: 15 March 2023 07:49
[2023-03-15] MEDS ORDERED: carvediloL 6.25 MG TAB PO STA (07:59)
[2023-03-15 08:02] LABS: Basophils % (A) 0 %; Eosinophils % (A) 0 %; HCT 49.3 % (39.0-53.0); HGB 15.6 gm/dL (13.0-17.5); Lymphocytes # (A) 0.7 k/uL (1.0-4.8); Lymphocytes % (A) 9 %; MCH 27.9 pg (25.0-35.0); MCHC 31.7 g/dL (31.0-37.0); MCV 88.1 fL (80.0-100.0); Mean Platelet Volume 9.2; Monocytes # (A) 0.3 k/uL (0-1.0); Monocytes % (A) 4 %; Neutrophils % (A) 86 %; Platelet Count 169 k/uL (150-450); RBC 5.59 m/uL (4.30-5.90); RDW 14.2 % (11.5-15.5); WBC 8.2 k/uL (3.8-10.6)
[2023-03-15 08:08] LABS: Partial Thromboplastin Time 50.6 sec (22.0-30.0); Prothrombin Time 10.9 sec (10.0-12.5)
[2023-03-15 08:42] LABS: Albumin 3.9 g/dL (3.5-5.0); Chloride 102 mmol/L (98-107); Glucose 141 mg/dL (74-99); Potassium 4.1 mmol/L (3.5-5.1); Total Protein 7.4 g/dL (6.3-8.2)
[2023-03-15 08:43] LABS: ALT 27 U/L (4-49); AST 34 U/L (17-59); African American GFR (CKD) >90 (>60 ml/min/1.73 sqM); Alkaline Phosphatase 119 U/L (38-126); Anion Gap 7 mmol/L; Blood Urea Nitrogen 13 mg/dL (9-20); Calcium 8.8 mg/dL (8.4-10.2); Carbon Dioxide 30 mmol/L (22-30); Non-African American GFR(CKD) >90 (>60 ml/min/1.73 sqM); Sodium 139 mmol/L (137-145); Total Bilirubin 0.8 mg/dL (0.2-1.3)
[2023-03-15] MEDS ORDERED: NON FORMULARY DRUG (Losartan/Hydrochlorothiazide [Hyzaar 100-12.5 Tablet] 1 EACH Tablet) PO SCH (09:00)
[2023-03-15] MEDS: BUDESONIDE 1 MG/2 ML NEBU INHALATION SCH ×2 (09:12→21:01)
[2023-03-15] MEDS: IPRATROPIUM-ALBUTEROL 3 ML NEB INHALATION SCH ×4 (09:13→21:01)
[2023-03-15] MEDS: hydroCHLOROthiazide 12.5 MG CAP PO SCH (09:21)
[2023-03-15] MEDS: OSELTAMIVIR 75 MG CAP PO SCH ×2 (09:21→23:05)
[2023-03-15] MEDS: ASPIRIN 81 MG PO SCH (09:22)
[2023-03-15] MEDS: POTASSIUM CHLORIDE ER 10 MEQ TAB.ER.PRT PO SCH (09:22)
[2023-03-15] MEDS: LOSARTAN 50 MG TAB PO SCH (09:22)
[2023-03-15] MEDS: EZETIMIBE 10 MG TAB PO SCH (09:22)
[2023-03-15] MEDS: APIXABAN 5 MG TAB PO SCH ×2 (09:22→19:19)
[2023-03-15] MEDS: ATORVASTATIN 80 MG TAB PO SCH (09:34)
--- NOTE | 2023-03-15 09:38 | P.CRDCN ---
History of Present Illness History of present illness: HISTORY OF PRESENT ILLNESS: This is a 62-year-old male with a past medical history significant for coronary artery disease with previous stenting, hypertension, hyperlipidemia, and morbid obesity. Patient follows in the office with Dr. Hernandez. We have been asked to see the patient in consultation for atrial flutter. Patient examined at the bedside. Patient initially presented to the hospital with a chief complaint of coughing and mild shortness of breath. The patient was found to be positive for influenza A. The patient currently denies any chest pain or pressure. He denies any shortness of breath. The patient went into atrial flutter VR. He was started on IV heparin and IV Cardizem. The patient does not have a history of atrial flutter or atrial fibrillation. He has subsequently converted to sinus mechanism and is maintaining sinus mechanism this morning at time of examination. DIAGNOSTICS: - EKG reveals atrial flutter with RVR - Chest xray minimal developing right lower lobe infiltrate may be present. Correlate for pneumonia and atelectasis Chest CTA: Negative for pulmonary embolism. Ascending aorta diameter at the level of the pulmonary artery is 4.3 cm. - Laboratory data: WBC 8.2. Hemoglobin 15.6. Platelet count 169. D-dimer 1.09. Sodium 139. Potassium 4.1. BUN 13. Creatinine 0.56. Magnesium 1.6. Troponin negative x 1. proBNP 640. - Current home cardiac medications include carvedilol 12.5 mg twice a day, losartanhydrochlorothiazide 100 mg - 12.5 mg daily, Zetia 10 mg daily, atorvastatin 80 mg daily, aspirin 81 mg daily - Echocardiogram obtained revealing ejection fraction 50 to 55%, mild tricuspid regurgitation, moderate concentric LVH, dilated aortic root measuring 4.2 cm - Cardiac catheterization history: September 2019 revealing 85% mid LAD, 99% proximal OM2, 60% mid LAD, right dominant system. Patient underwent stenting of the mid LAD and proximal OM 2 REVIEW OF SYSTEMS: At the time of my exam: CONSTITUTIONAL: Denies fever or chills. HEENT: Denies blurred vision, vision changes, or eye pain. Denies hemoptysis CARDIOVASCULAR: Denies chest pain. Denies orthopnea. Denies PND. Denies palpitations RESPIRATORY: Denies shortness of breath. GASTROINTESTINAL: Denies abdominal pain. Denies nausea or vomiting. HEMATOLOGIC: Denies bleeding disorders. GENITOURINARY: Denies any blood in urine. SKIN: Denies pruitis. Denies rash. PHYSICAL EXAM: VITAL SIGNS: Reviewed. GENERAL: Well-developed in no acute distress. HEENT: Head is normocephalic. Pupils are equal, round. Sclerae anicteric. Mucous membranes of the mouth are moist. Neck supple. No JVD or thyromegaly LUNGS: Respirations even and unlabored. Lungs essentially clear to auscultation bilaterally. HEART: Regular rate and rhythm. S1 and S2 heard. ABDOMEN: Soft. Nondistended. Nontender. EXTREMITIES: Normal range of motion. No clubbing or cyanosis. Peripheral pulses intact. No lower extremity edema NEUROLOGIC: Awake and alert. Oriented x 3. ASSESSMENT: Acute influenza A New onset typical atrial flutter with RVR, currently maintaining sinus mechanism Coronary artery disease with previous stenting Hypertension Hyperlipidemia Morbid obesity: BMI 49.2 PLAN: 2D echo obtained and reviewed Discontinue IV Cardizem Discontinue IV heparin. Begin Eliquis 5 mg twice a day Increase carvedilol to 12.5 mg twice a day Check TSH Continue telemetry monitoring Further recommendations pending patient course Nurse practitioner note has been reviewed by physician. Signing provider agrees with the documented findings, assessment, and plan of care documented by EMPLOYMENT ATTORNEY as a scribe. Past Medical History Past Medical History: Diabetes Mellitus, Hyperlipidemia, Hypertension, Myocardial Infarction ([place]) Additional Past Medical History / Comment(s): diet controlled diabetes. difficulty swallowing Last Myocardial Infarction Date:: 11/05 History of Any Multi-Drug Resistant Organisms: None Reported Past Surgical History: Appendectomy, Bariatric Surgery, Heart Catheterization, Heart Catheterization With Stent, Hernia Repair Additional Past Surgical History / Comment(s): gastric sleeve 2015; stents X2 placed October 2019, right total knee replacement, Past Anesthesia/Blood Transfusion Reactions: No Reported Reaction Additional Past Anesthesia/Blood Transfusion Reaction / Comment(s): hard for patient to lay flat on back Date of Last Stent Placement:: 10/2019 Past Psychological History: No Psychological Hx Reported Smoking Status: Current every day smoker Past Alcohol Use History: Occasional Additional Past Alcohol Use History / Comment(s): smoker for 10+years quit 11/05 restarted now smoking 1/2-1pk day Past Drug Use History: Marijuana Additional Drug Use History / Comment(s): occasional edibles or smokes it refrain 24 hours prior to proc - Past Family History Mother Family Medical History: No Reported History Medications and Allergies Home Medications Medication Instructions Recorded Confirmed Type Aspirin 81 mg PO DAILY chew 10/03/19 03/14/23 Rx Ezetimibe [Zetia] 10 mg PO DAILY 06/11/22 03/14/23 History Losartan/Hydrochlorothiazide 1 tab PO DAILY 11/13/22 03/14/23 History [Hyzaar 100-12.5 Tablet] Phentermine HCl 37.5 mg PO DAILY 11/13/22 03/14/23 History Albuterol Sulfate [Albuterol 1 puff INHALATION RT-Q4H PRN 03/14/23 03/14/23 History Sulfate Hfa] Atorvastatin [Lipitor] 80 mg PO DAILY 03/14/23 03/14/23 History Nitroglycerin Sl Tabs [Nitrostat] 0.4 mg SL Q5M PRN 03/14/23 03/14/23 History Potassium Chloride ER [K-Dur 10] 10 meq PO DAILY 03/14/23 03/14/23 History carvediloL [Coreg] 12.5 mg PO BID 03/14/23 03/14/23 History Allergies Allergy/AdvReac Type Severity Reaction Status Date / Time No Known Allergies Allergy Verified 03/14/23 15:04 Physical Exam Vitals: Vital Signs Temp Pulse Pulse Resp BP BP BP 03/15/23 04:30 03/15/23 04:05 03/15/23 04:00 97.8 F 84 20 136/79 03/15/23 02:00 75 18 03/14/23 23:19 97.5 F L 75 18 116/53 03/14/23 22:26 92 03/14/23 22:07 100 03/14/23 21:12 03/14/23 20:00 98.1 F 82 16 132/75 03/14/23 17:35 98.2 F 131 H 16 144/73 03/14/23 17:19 98.6 F 110 H 23 138/87 03/14/23 15:39 93 03/14/23 15:28 91 03/14/23 15:26 98.9 F 115 H 24 142/63 03/14/23 11:45 123 H 03/14/23 11:37 105 H 03/14/23 10:50 98.9 F 128 H 28 H 149/89 Pulse Ox 03/15/23 04:30 92 L 03/15/23 04:05 89 L 03/15/23 04:00 87 L 03/15/23 02:00 03/14/23 23:19 92 L 03/14/23 22:26 03/14/23 22:07 03/14/23 21:12 91 L 03/14/23 20:00 88 L 03/14/23 17:35 95 03/14/23 17:19 98 03/14/23 15:39 03/14/23 15:28 03/14/23 15:26 93 L 03/14/23 11:45 03/14/23 11:37 03/14/23 10:50 90 L Intake and Output 03/14/23 03/15/23 03/15/23 22:59 06:59 14:59 Intake Total 132.723 Output Total 900 Balance -767.277 Intake: Intake, IV Titration 132.723 Amount Diltiazem 125 mg In 51.333 Sodium Chloride 0.9% 100 ml @ 5 MG/HR 5 mls/hr IV .Q24H [facility] Rx#:[id number] Heparin Sod,Pork in 0.45% 81.39 NaCl 25,000 unit In 0.45 % NaCl 1 250ml.bag @ 6.25 UNITS/KG/HR 10.007 mls/ hr IV .Q24H [facility] Rx#: [id number] Output: Urine 900 Other: Voiding Method Toilet Toilet Weight 160.118 kg Results 03/15/23 06:32 03/15/23 06:32 Cardiac Enzymes 03/14/23 03/14/23 03/15/23 Range/Units 11:15 11:15 06:32 AST 42 34 (17-59) U/L Troponin I <0.012 (0.000-0.034) ng/mL Coagulation 03/14/23 03/14/23 03/15/23 Range/Units 11:15 21:57 06:32 PT 11.2 10.9 (10.0-12.5) sec APTT 25.6 36.2 H 50.6 H (22.0-30.0) sec CBC 03/14/23 03/15/23 Range/Units 11:15 06:32 WBC 8.1 8.2 (3.8-10.6) k/uL RBC 5.17 5.59 (4.30-5.90) m/uL Hgb 14.9 15.6 (13.0-17.5) gm/dL Hct 45.2 49.3 (39.0-53.0) % Plt Count 127 L 169 (150-450) k/uL Comprehensive Metabolic Panel 03/14/23 03/15/23 Range/Units 11:15 06:32 Sodium 138 139 (137-145) mmol/L Potassium 3.8 4.1 (3.5-5.1) mmol/L Chloride 103 102 (98-107) mmol/L Carbon Dioxide 28 30 (22-30) mmol/L BUN 13 13 (9-20) mg/dL Creatinine 0.58 L 0.56 L (0.66-1.25) mg/dL Glucose 94 141 H (74-99) mg/dL Calcium 8.2 L 8.8 (8.4-10.2) mg/dL AST 42 34 (17-59) U/L ALT 26 27 (4-49) U/L Alkaline Phosphatase 110 119 (38-126) U/L Total Protein 6.9 7.4 (6.3-8.2) g/dL Albumin 3.6 3.9 (3.5-5.0) g/dL Current Medications Generic Name Dose Route Start Last Admin Trade Name Freq PRN Reason Stop Dose Admin Acetaminophen 650 mg 03/14/23 14:34 Acetaminophen Tab 325 Mg Tab PO Q4HR PRN Mild Pain or Fever > 100.5 Albuterol/Ipratropium 3 ml 03/14/23 16:00 03/15/23 09:13 Ipratropium-Albuterol 3 Ml Neb INHALATION Not Given RT-QID [facility] Albuterol/Ipratropium 3 ml 03/14/23 14:34 Ipratropium-Albuterol 3 Ml Neb INHALATION RT-Q2H PRN Shortness Of Breath Or Wheezing Apixaban 5 mg 03/15/23 09:00 Apixaban 5 Mg Tab PO BID [facility] Protocol Aspirin 81 mg 03/15/23 09:00 Aspirin 81 Mg PO DAILY [facility] Atorvastatin Calcium 80 mg 03/15/23 09:00 Atorvastatin 80 Mg Tab PO DAILY [facility] Budesonide 1 mg 03/14/23 20:00 03/15/23 09:12 Budesonide 1 Mg/2 Ml Nebu INHALATION Not Given RT-BID [facility] Carvedilol 12.5 mg 03/15/23 17:30 Carvedilol 12.5 Mg Tab PO BID-W/MEALS [facility] Ezetimibe 10 mg 03/15/23 09:00 Ezetimibe 10 Mg Tab PO DAILY [facility] Hydrochlorothiazide 12.5 mg 03/15/23 09:00 Hydrochlorothiazide 12.5 Mg Cap PO DAILY [facility] Losartan Potassium 100 mg 03/15/23 09:00 Losartan 50 Mg Tab PO DAILY [facility] Methylprednisolone Sodium Succinate 60 mg 03/14/23 18:00 03/15/23 06:11 Methylprednisolone Sod Succi 125 Mg/2 Ml Vial IV 60 mg Q6HR [facility] Administration Multivitamins 1 each 03/15/23 12:00 Multivitamins, Thera 1 Each Tab PO DAILY@1200 [facility] Naloxone HCl 0.2 mg 03/14/23 14:34 Naloxone 0.4 Mg/Ml 1 Ml Vial IVP Q2M PRN Opioid Reversal Oseltamivir Phosphate 75 mg 03/14/23 14:30 03/14/23 20:30 Oseltamivir 75 Mg Cap PO 03/18/23 21:01 75 mg Q12HR [facility] Administration Protocol Pantoprazole Sodium 40 mg 03/15/23 07:30 03/15/23 06:07 Pantoprazole 40 Mg Tablet PO 40 mg AC-[id number] [facility] Administration Potassium Chloride 10 meq 03/15/23 09:00 Potassium Chloride Er 10 Meq Tab.Er.Prt PO DAILY [facility] Senna/Docusate Sodium 2 each 03/14/23 21:00 03/14/23 20:31 Sennosides-Docusate Sodium 1 Each Tab PO Not Given HS [facility] Intake and Output 03/14/23 03/15/23 03/15/23 22:59 06:59 14:59 Intake Total 132.723 Output Total 900 Balance -767.277 Intake: Intake, IV Titration 132.723 Amount Diltiazem 125 mg In 51.333 Sodium Chloride 0.9% 100 ml @ 5 MG/HR 5 mls/hr IV .Q24H [facility] Rx#:[id number] Heparin Sod,Pork in 0.45% 81.39 NaCl 25,000 unit In 0.45 % NaCl 1 250ml.bag @ 6.25 UNITS/KG/HR 10.007 mls/ hr IV .Q24H [facility] Rx#: [id number] Output: Urine 900 Other: Voiding Method Toilet Toilet Weight 160.118 kg 03/15/23 06:32 03/15/23 06:32
--- NOTE | 2023-03-15 11:19 | P.PN ---
Subjective Progress Note Date: 03/15/23 HISTORY OF PRESENT ILLNESS: This is a 62-year-old male with a previous medical history significant for hypertension and hypertensive cardiovascular disease, hyperlipidemia, coronary artery disease status post PCI of the LAD as well as the obtuse marginal branch #2 with moderate disease of the RCA back in 2019, super morbid obesity status post sleeve gastrectomy back in 2013, currently getting phentermine 37.5 mg orally once every day, patient was in his usual state of health with about 2 days ago when he came down with a scratchy throat associated with low-grade temperature and increased shortness of breath, today in the morning he was coughing some white phlegm associated with increased difficulty breathing he went to [facility] urgent care and he was found to have influenza A but his oxygen saturation was around 88%, so he was referred to the emergency department at [facility], he was seen in the ER by Dr. Seals had a chest x-ray that showed possible developing infiltrate in the right lower lobe, his D- dimer came back elevated, his oxygenation was 90% on room air, he was placed on 3 L nasal cannula, he was given nebulized treatment, and he was sent for CT angiography of the chest that showed thoracic aortic aneurysm at 4.3 cm without evidence of pulmonary infiltrate or pulmonary embolism, patient was started on heparin drip as well as Cardizem drip, he was also started on Tamiflu 75 mg orally twice every day, he was admitted to the hospital to be evaluated by cardiology as well as pulmonary medicine. 03/15: Patient sitting up in bed is feeling a lot better today, he denies any chest pain, he is less short of breath, he continues to be on 3 L nasal cannula, he was seen earlier by cardiology, he was taken off heparin drip, he was started on Eliquis 5 mg orally twice every day, Cardizem drip was discontinued and the patient Coreg was increased to 12.5 mg orally twice every day, continue IV steroids, decrease to 40 mg IV push every 8 hours, continue nebulized treatment, continue Pulmicort, continue Tamiflu, continue to monitor the patient very closely. Echocardiogram was reviewed. Did show ejection fraction 55%, tricuspid regurgitation, dilated aortic root without evidence of aortic regurgitation. REVIEW OF SYSTEMS: Constitutional: low grade fever, no chills, no night sweats. No weight change. No weakness, fatigue or lethargy. No daytime sleepiness. HEENT: No headache. No blurred vision or double vision, no loss of vision. No loss of Hearing, no ringing in the ears, no dizziness. No nasal drainage or congestion. No epistaxis. No sore throat. Lungs: positive for shortness of breath, positive for cough, positive for white sputum production. positive for wheezing. Reports dyspnea with activity. Cardiovascular: No chest pain, no lower extremity edema. No palpitations. No paroxysmal nocturnal dyspnea. No orthopnea. No lightheadedness or dizziness. No syncopal episodes. Abdominal: Reports no abdominal pain. No nausea, vomiting. No diarrhea. No constipation. No bloody or tarry stools reports loss of appetite. Genitourinary: No dysuria, increased frequency, urgency. No urinary retention. Musculoskeletal: No myalgias. No muscle weakness, no gait dysfunction, no frequent falls. No back pain. No neck pain. Integumentary: no wounds, no lesions. No rash or pruritus. No unusual bruising. No change in hair or nails. Neurologic: No aphasia. No facial droop. No change in mentation. No head injury. No headache. No paralysis. No paresthesia. Psychiatric: No depression. No anxiety. No mood swings. Endocrine: No abnormal blood sugars. No weight change. PHYSICAL EXAMINATION: General: 62-year-old male sitting up in chair with loerto HEENT: Head is atraumatic, normocephalic, pupils were equal round reactive to light and recommendation, extraocular muscle movement were intact, sclera nonicteric, conjunctivae were pale, mucous membranes of the mouth are somewhat dry. Neck: Supple, no JVP, normal carotid upstroke bilaterally, no lymphadenopathy. Chest: Decreased breath sounds at the bases, few rhonchi, minimal expiratory wheezes, no chest wall tenderness, no intercostal retractions. Heart: First heart sound is normal, second heart sound is normal there is JAVIER 2/6 located at the left sternal border, irregularly irregular Abdomen: Soft, nontender, nondistended, positive bowel sounds. Extremities: There is +1 edema no calf tenderness DP +2 bilaterall. Neurologic examination: Patient is awake alert and oriented X 3 , cranial nerves II-12 appear grossly intact, muscle power were 5 out of 5 in upper extremities and 5 out of 5 in bilateral lower extremities, deep tendon reflexes normal bilaterally. ASSESSMENT AND PLAN: 1. Acute hypoxemic respiratory failure due to acute diastolic heart failure due to atrial fibrillation/flutter with RVR , influenza A, and COPD exacerbation. Continue patient on carvedilol 12.5 mg orally twice a day, continue patient on Tamiflu 75 mg orally twice every day , DuoNeb 3 mL nebulization 4 times every day, oxygen support, continue also Pulmicort 1 mg nebulization twice every day cardiology and pulmonary consults are appreciated, decrease Solu-Medrol to 40 mg IV push every 8 hours. 2. Influenza A. patient on Tamiflu 75 mg orally twice a day for 5 days, continue patient on oxygen 3 L nasal cannula, continue DuoNeb 3 mL nebulizer 4 times every day, continue Solu-Medrol 40 mg IV push every 8 hours pulmonary consultation. Start the patient on Pulmicort 1 mg nebulization twice every day as well. 3. New onset atrial fibrillation/flutter. Continue carvedilol 12.5 mg twice every day, discontinue heparin drip, Eliquis 5 mg orally twice every day. 4. Hypertension and hypertensive cardiovascular disease . Continue patient on carvedilol 12.5 mg orally twice every day, continue losartan 100/12.5 mg orally once every day, oxygen the patient blood pressure very closely. 5. Mixed hyperlipidemia. Continue atorvastatin 80 mg orally once every day, Zetia 10 mg once every day, keep LDL 55-70. 6. Osteoarthritis. Post bilateral total knee arthroplasties. 7. CAD post-PCI of the LAD and obtuse marginal branch 2. Continue patient on aspirin 81 mg once every day, continue carvedilol 12.5 mg orally twice every day as well as atorvastatin 80 mg orally once every day. 8. Super morbid obesity. Patient has been on phentermine we will hold for now. 9. DVT prophylaxis patient is on Eliquis 5 mg orally twice a day. 10. GI prophylaxis. Start Protonix 40 mg orally once every day. 11. Right hydrocele. Reassured about the benign nature of the illness, will continue to monitor, patient may need to have this taken care of as an outpatient with urology. 12. Full code. Objective - Vital Signs Vital signs: Vital Signs Temp 97.8 F 03/15/23 04:00 Pulse 84 03/15/23 04:00 Resp 20 03/15/23 04:00 BP 136/79 03/15/23 04:00 Pulse Ox 92 L 03/15/23 04:30 FiO2 Intake & Output 03/14/23 03/15/23 03/15/23 18:59 06:59 18:59 Intake Total 132.723 240 Output Total 900 Balance -767.277 240 Weight 160.118 kg Intake: Intake, IV Titration 132.723 Amount Diltiazem 125 mg In 51.333 Sodium Chloride 0.9% 100 ml @ 5 MG/HR 5 mls/hr IV .Q24H [facility] Rx#:[id number] Heparin Sod,Pork in 0.45% 81.39 NaCl 25,000 unit In 0.45 % NaCl 1 250ml.bag @ 6.25 UNITS/KG/HR 10.007 mls/ hr IV .Q24H [facility] Rx#: [id number] Oral 240 Output: Urine 900 Other: Voiding Method Toilet - Labs CBC & Chem 7: 03/15/23 06:32 03/15/23 06:32 Labs: Abnormal Lab Results - Last 24 Hours (Table) 03/14/23 03/14/23 03/14/23 Range/Units 11:15 11:15 11:15 Plt Count 127 L (150-450) k/uL Lymphocytes # 0.5 L (1.0-4.8) k/uL APTT (22.0-30.0) sec D-Dimer 1.09 H (<0.60) mg/L FEU Creatinine (0.66-1.25) mg/dL Glucose (74-99) mg/dL Calcium (8.4-10.2) mg/dL Influenza Type A (PCR) Detected A (Not Detectd) 03/14/23 03/14/23 03/15/23 Range/Units 11:15 21:57 06:32 Plt Count (150-450) k/uL Lymphocytes # 0.7 L (1.0-4.8) k/uL APTT 36.2 H (22.0-30.0) sec D-Dimer (<0.60) mg/L FEU Creatinine 0.58 L (0.66-1.25) mg/dL Glucose (74-99) mg/dL Calcium 8.2 L (8.4-10.2) mg/dL Influenza Type A (PCR) (Not Detectd) 03/15/23 03/15/23 Range/Units 06:32 06:32 Plt Count (150-450) k/uL Lymphocytes # (1.0-4.8) k/uL APTT 50.6 H (22.0-30.0) sec D-Dimer (<0.60) mg/L FEU Creatinine 0.56 L (0.66-1.25) mg/dL Glucose 141 H (74-99) mg/dL Calcium (8.4-10.2) mg/dL Influenza Type A (PCR) (Not Detectd)
[2023-03-15] MEDS: MULTIVITAMINS, THERA 1 EACH TAB PO SCH (12:12)
[2023-03-15 12:57] LABS: T4, Free (Free Thyroxine) 1.14 ng/dL (0.78-2.19)
--- NOTE | 2023-03-15 13:29 | P.CNPUL ---
History of Present Illness Consult date: 03/15/23 Requesting physician: Roosevelt العلي Reason for consult: other (Cough and fever) Chief complaint: Cough and low-grade fever History of present illness: Is a 62-year-old white male with history of hypertension, coronary artery disease and previous PCI of the LAD. Also had stent of the obtuse marginal branch #2 patient also had previous sleeve gastrectomy back in 2013, patient was seen in the ER with 2 days history of low-grade fever, cough, flulike illness, and he was noted to have O2 saturation about 88% on room air. Patient was sent to the ER, and chest x-ray initially questioned developing infiltrate in the right lower lobe but since his D-dimer came back elevated patient had a CT angio gram of the chest showed no evidence of pulmonary embolism and no evidence of pneumonia. While in the ER, patient was noted to have atrial fibrillation/flutter with RVR which is a new finding. Hence patient was admitted and this consult was initiated. Today the patient is feeling better, does not seem to be in any distress,BNP level is normal, patient tested positive for influenza A by PCR. Patient was seen by cardiology on consultation, and felt that this is a new onset atrial flutter with RVR, patient was initially placed on IV Cardizem, and on heparin, after evaluation by cardiology today, both were discontinued, patient started on Eliquis 5 mg twice daily, and increased Coreg to 12.5 mg twice daily. Thyroid testing was initiated.Pulmonary slater, patient is feeling better however he is on 3 L nasal cannula and O2 sats is 94% patient does not seem to be in any distress. Patient has been a smoker over the years, he smokes mostly cigars. He was smoking cigars until few days ago labs showed relatively normal CBC and normal basic metabolic profile normal renal profile, And normal thyroid profile. Review of Systems REVIEW OF SYSTEMS: CONSTITUTIONAL: Low-grade fever vague weakness EYES: Negative. ENT: Negative. Denied any sore throat may have been a bit scratchy CARDIAC: As noted in HPI PULMONARY: As noted in HPI mostly cough some wheezing GI: Negative. GENITOURINARY: Negative. MUSCULOSKELETAL: Negative. SKIN: Negative. NEUROPSYCH: Negative. ENDOCRINE: Negative. HEMATOLOGIC: Negative. Past Medical History Past Medical History: Diabetes Mellitus, Hyperlipidemia, Hypertension, Myocardial Infarction ([place]) Additional Past Medical History / Comment(s): diet controlled diabetes. difficulty swallowing Last Myocardial Infarction Date:: 11/05 History of Any Multi-Drug Resistant Organisms: None Reported Past Surgical History: Appendectomy, Bariatric Surgery, Heart Catheterization, Heart Catheterization With Stent, Hernia Repair Additional Past Surgical History / Comment(s): gastric sleeve 2015; stents X2 placed October 2019, right total knee replacement, Past Anesthesia/Blood Transfusion Reactions: No Reported Reaction Additional Past Anesthesia/Blood Transfusion Reaction / Comment(s): hard for patient to lay flat on back Date of Last Stent Placement:: 10/2019 Past Psychological History: No Psychological Hx Reported Smoking Status: Current every day smoker Past Alcohol Use History: Occasional Additional Past Alcohol Use History / Comment(s): smoker for 10+years quit 11/05 restarted now smoking 1/2-1pk day Past Drug Use History: Marijuana Additional Drug Use History / Comment(s): occasional edibles or smokes it refrain 24 hours prior to proc - Past Family History Mother Family Medical History: No Reported History Medications and Allergies Home Medications Medication Instructions Recorded Confirmed Type Aspirin 81 mg PO DAILY chew 10/03/19 03/14/23 Rx Ezetimibe [Zetia] 10 mg PO DAILY 06/11/22 03/14/23 History Losartan/Hydrochlorothiazide 1 tab PO DAILY 11/13/22 03/14/23 History [Hyzaar 100-12.5 Tablet] Phentermine HCl 37.5 mg PO DAILY 11/13/22 03/14/23 History Albuterol Sulfate [Albuterol 1 puff INHALATION RT-Q4H PRN 03/14/23 03/14/23 History Sulfate Hfa] Atorvastatin [Lipitor] 80 mg PO DAILY 03/14/23 03/14/23 History Nitroglycerin Sl Tabs [Nitrostat] 0.4 mg SL Q5M PRN 03/14/23 03/14/23 History Potassium Chloride ER [K-Dur 10] 10 meq PO DAILY 03/14/23 03/14/23 History carvediloL [Coreg] 12.5 mg PO BID 03/14/23 03/14/23 History Allergies Allergy/AdvReac Type Severity Reaction Status Date / Time No Known Allergies Allergy Verified 03/14/23 15:04 Physical Exam Vitals: Vital Signs Temp Pulse Pulse Resp BP BP BP 03/15/23 12:54 87 03/15/23 12:43 87 03/15/23 12:00 97.4 F L 88 18 148/74 03/15/23 08:00 98.4 F 88 14 138/88 03/15/23 04:30 03/15/23 04:05 03/15/23 04:00 97.8 F 84 20 136/79 03/15/23 02:00 75 18 03/14/23 23:19 97.5 F L 75 18 116/53 03/14/23 22:26 92 03/14/23 22:07 100 03/14/23 21:12 03/14/23 20:00 98.1 F 82 16 132/75 03/14/23 17:35 98.2 F 131 H 16 144/73 03/14/23 17:19 98.6 F 110 H 23 138/87 03/14/23 15:39 93 03/14/23 15:28 91 03/14/23 15:26 98.9 F 115 H 24 142/63 Pulse Ox 03/15/23 12:54 03/15/23 12:43 94 L 03/15/23 12:00 93 L 03/15/23 08:00 91 L 03/15/23 04:30 92 L 03/15/23 04:05 89 L 03/15/23 04:00 87 L 03/15/23 02:00 03/14/23 23:19 92 L 03/14/23 22:26 03/14/23 22:07 03/14/23 21:12 91 L 03/14/23 20:00 88 L 03/14/23 17:35 95 03/14/23 17:19 98 03/14/23 15:39 03/14/23 15:28 03/14/23 15:26 93 L Intake and Output 03/14/23 03/15/23 03/15/23 22:59 06:59 14:59 Intake Total 132.723 240 Output Total 900 Balance -767.277 240 Intake: Intake, IV Titration 132.723 Amount Diltiazem 125 mg In 51.333 Sodium Chloride 0.9% 100 ml @ 5 MG/HR 5 mls/hr IV .Q24H [facility] Rx#:[id number] Heparin Sod,Pork in 0.45% 81.39 NaCl 25,000 unit In 0.45 % NaCl 1 250ml.bag @ 6.25 UNITS/KG/HR 10.007 mls/ hr IV .Q24H [facility] Rx#: [id number] Oral 240 Output: Urine 900 Other: Voiding Method Toilet Toilet Toilet Weight 160.118 kg general: The patient is awake and alert, in no distress, and does not appear acutely ill. On 3 L nasal cannula Skin: Skin is warm and dry and no rashes or lesions are noted. Eye: Pupils are equal, round and reactive to light, extra-ocular movements are intact; there is normal conjunctiva bilaterally. Ears, nose, mouth and throat: There are moist mucous membranes and no oral lesions. Neck: The neck is supple, there is no tenderness or JVD. Cardiovascular: Normal S1-S2, no S3 gallop, no murmur Respiratory: Diminished breath sounds at the bases, rhonchi on forced expiratory maneuver only. Gastrointestinal: Obese soft, non-distended, non-tender abdomen without masses or organomegaly noted. There is no rebound or guarding present. Bowel sounds are unremarkable. Back: There is no tenderness to palpation in the midline. There is no obvious deformity. Musculoskeletal: Normal ROM, no tenderness, There is no pedal edema. There is no calf tenderness or swelling. No cords were appreciated. Neurological: CN II-XII intact, Cranial nerves III through XII are intact. There are no obvious motor or sensory deficits. Coordination appears grossly intact. Speech is normal. Psychiatric: Cooperative, appropriate mood & affect, normal judgment. Results - Laboratory Findings CBC and BMP: 03/15/23 06:32 03/15/23 06:32 PT/INR, D-dimer PT 10.9 sec (10.0-12.5) 03/15/23 06:32 INR 1.0 (<1.2) 03/15/23 06:32 D-Dimer 1.09 mg/L FEU (<0.60) H 03/14/23 11:15 Abnormal lab findings: Abnormal Labs 03/14/23 03/14/23 03/14/23 11:15 11:15 11:15 Plt Count 127 L Lymphocytes # 0.5 L APTT D-Dimer 1.09 H Creatinine Glucose Calcium TSH Influenza Type A (PCR) Detected A 03/14/23 03/14/23 03/15/23 11:15 21:57 06:32 Plt Count Lymphocytes # 0.7 L APTT 36.2 H D-Dimer Creatinine 0.58 L Glucose Calcium 8.2 L TSH Influenza Type A (PCR) 03/15/23 03/15/23 03/15/23 06:32 06:32 06:32 Plt Count Lymphocytes # APTT 50.6 H D-Dimer Creatinine 0.56 L Glucose 141 H Calcium TSH 0.077 L Influenza Type A (PCR) - Diagnostic Findings Chest x-ray: image reviewed CT scan - chest: image reviewed (As noted in HPI.) Assessment and Plan Assessment: Impression: Acute hypoxic respiratory failure, multifactorial Acute influenza A tracheobronchitis Acute exacerbation of COPD New onset atrial flutter with RVR secondary to above and likely worsened by the fact the patient is on phentermine Doubt congestive heart failure, based on chest x-ray findings History of underlying coronary artery disease Morbid obesity Degenerative joint disease Benign essential hypertension Dyslipidemia Recommendation: Continue Tamiflu Continue Pulmicort Continue eliquis Continue DuoNeb Continue methylprednisolone for now at 40 mg IV push every 8 hours Consider stopping phentermine as it may be a major contributing factor to his cardiac arrhythmia and tachycardia Counseled regarding smoking cessation Continue Coreg dose was increased Will continue to follow Time with Patient: Greater than 30
[2023-03-15] MEDS: methylPREDNISolone SOD SUCCI 40 MG/ML 1 ML VIAL IV SCH ×2 (15:52→23:04)
[2023-03-15] MEDS: carvediloL 12.5 MG TAB PO SCH (15:52)
[2023-03-15] MEDS: SENNOSIDES-DOCUSATE SODIUM 1 EACH TAB PO SCH (19:20)
[2023-03-16] MEDS: PANTOPRAZOLE 40 MG TABLET PO SCH (05:03)
[2023-03-16] MEDS: carvediloL 12.5 MG TAB PO SCH ×2 (05:03→16:47)
[2023-03-16] MEDS ORDERED: DILTIAZEM DRIP BOLUS FROM BAG 1 MG SOLN IV ONE (08:30)
[2023-03-16] MEDS ORDERED: DILTIAZEM 125 MG in SODIUM CHLORIDE 0.9% 100 ML IV SCH (08:30)
[2023-03-16] MEDS: IPRATROPIUM-ALBUTEROL 3 ML NEB INHALATION SCH ×4 (08:53→21:24)
[2023-03-16] MEDS: BUDESONIDE 1 MG/2 ML NEBU INHALATION SCH ×2 (08:53→21:24)
[2023-03-16] MEDS: ASPIRIN 81 MG PO SCH (09:22)
[2023-03-16] MEDS: LOSARTAN 50 MG TAB PO SCH (09:22)
[2023-03-16] MEDS: APIXABAN 5 MG TAB PO SCH ×2 (09:23→19:40)
[2023-03-16] MEDS: ATORVASTATIN 80 MG TAB PO SCH (09:23)
[2023-03-16] MEDS: EZETIMIBE 10 MG TAB PO SCH (09:23)
[2023-03-16] MEDS: POTASSIUM CHLORIDE ER 10 MEQ TAB.ER.PRT PO SCH (09:23)
[2023-03-16] MEDS: methylPREDNISolone SOD SUCCI 40 MG/ML 1 ML VIAL IV SCH (09:25)
[2023-03-16] MEDS: hydroCHLOROthiazide 12.5 MG CAP PO SCH (09:25)
[2023-03-16] MEDS: OSELTAMIVIR 75 MG CAP PO SCH ×2 (09:27→19:40)
[2023-03-16] MEDS ORDERED: carvediloL 12.5 MG TAB PO STA (09:28)
[2023-03-16 10:51] LABS: Basophils % (A) 0 %; Eosinophils % (A) 0 %; HCT 47.5 % (39.0-53.0); HGB 15.1 gm/dL (13.0-17.5); Lymphocytes # (A) 1.1 k/uL (1.0-4.8); Lymphocytes % (A) 8 %; MCH 28.2 pg (25.0-35.0); MCHC 31.9 g/dL (31.0-37.0); MCV 88.4 fL (80.0-100.0); Mean Platelet Volume 8.6; Monocytes % (A) 5 %; Neutrophils # (A) 11.7 k/uL (1.3-7.7); Neutrophils % (A) 86 %; Platelet Count 181 k/uL (150-450); RBC 5.37 m/uL (4.30-5.90); RDW 14.1 % (11.5-15.5); WBC 13.5 k/uL (3.8-10.6)
[2023-03-16 10:52] LABS: Monocytes # (A) 0.7 k/uL (0-1.0)
[2023-03-16 11:23] LABS: ALT 27 U/L (4-49); AST 28 U/L (17-59); African American GFR (CKD) >90 (>60 ml/min/1.73 sqM); Albumin 3.4 g/dL (3.5-5.0); Alkaline Phosphatase 96 U/L (38-126); Anion Gap 8 mmol/L; Blood Urea Nitrogen 24 mg/dL (9-20); Calcium 8.5 mg/dL (8.4-10.2); Carbon Dioxide 30 mmol/L (22-30); Chloride 101 mmol/L (98-107); Glucose 197 mg/dL (74-99); Non-African American GFR(CKD) >90 (>60 ml/min/1.73 sqM); Potassium 3.9 mmol/L (3.5-5.1); Sodium 139 mmol/L (137-145); Total Bilirubin 0.5 mg/dL (0.2-1.3); Total Protein 6.5 g/dL (6.3-8.2)
[2023-03-16] MEDS: MULTIVITAMINS, THERA 1 EACH TAB PO SCH (12:08)
--- NOTE | 2023-03-16 13:23 | P.PN ---
Subjective Progress Note Date: 03/16/23 Principal diagnosis: Influenza A, atrial flutter. Is a 62-year-old white male with history of hypertension, coronary artery disease and previous PCI of the LAD. Also had stent of the obtuse marginal branch #2 patient also had previous sleeve gastrectomy back in 2013, patient was seen in the ER with 2 days history of low-grade fever, cough, flulike illness, and he was noted to have O2 saturation about 88% on room air. Patient was sent to the ER, and chest x-ray initially questioned developing infiltrate in the right lower lobe but since his D-dimer came back elevated patient had a CT angiogram of the chest showed no evidence of pulmonary embolism and no evidence of pneumonia. While in the ER, patient was noted to have atrial fibrillation/flutter with RVR which is a new finding. Hence patient was admitted and this consult was initiated. Today the patient is feeling better, does not seem to be in any distress,BNP level is normal, patient tested positive for influenza A by PCR. Patient was seen by cardiology on consultation, and felt that this is a new onset atrial flutter with RVR, patient was initially placed on IV Cardizem, and on heparin, after evaluation by cardiology today, both were discontinued, patient started on Eliquis 5 mg twice daily, and incre ased Coreg to 12.5 mg twice daily. Thyroid testing was initiated.Pulmonary slater, patient is feeling better however he is on 3 L nasal cannula and O2 sats is 94% patient does not seem to be in any distress. Patient has been a smoker over the years, he smokes mostly cigars. He was smoking cigars until few days ago labs showed relatively normal CBC and normal basic metabolic profile normal renal profile, And normal thyroid profile. Progress note dated March 16, 2023. This is a 62-year-old male who was seen by my partner yesterday in consultation. The patient has a history of hypertension, and coronary artery disease. The patient was admitted with a diagnosis of acute hypoxemic respiratory failure, secondary to influenza A tracheobronchitis, and COPD exacerbation, as well as atrial flutter with RVR. Currently, the patient is resting comfortably in room 355. His Solu-Medrol will be converted to prednisone 30 mg a day. He continues on Tamiflu, and updraft treatments. His procalcitonin level was normal. The patient is on room air. He is not receiving any IV fluids. Sitting in a chair, next to his hospital bed. White count 13.5, hemoglobin 15.1, hematocrit 47.5, platelet count 181,000. Sodium 139, potassium 3.9, chlorides 101, CO2 30, BUN 24, and creatinine 0.71. Chest x-ray shows a possible developing right lower lobe infiltrate. CT angiogram was negative for PE. No mention of an infiltrate on the CT angiogram. Objective - Vital Signs Vital signs: Vital Signs Temp 98 F 03/16/23 04:00 Pulse 75 03/16/23 12:00 Resp 18 03/16/23 12:00 BP 114/68 03/16/23 12:00 Pulse Ox 96 03/16/23 12:00 FiO2 Intake & Output 03/15/23 03/16/23 03/16/23 18:59 06:59 18:59 Intake Total 598 150 187.5 Balance 598 150 187.5 Intake: Intake, IV Titration 7.5 Amount Diltiazem 125 mg In 7.5 Sodium Chloride 0.9% 100 ml @ 10 MG/HR 10 mls/hr IV .[id number] [facility] Rx#: [id number] Oral 598 150 180 Other: Voiding Method Toilet Toilet # Voids 2 1 - Exam No acute distress, oriented 3. No respiratory distress, conversational dyspnea, or use of accessory muscles. HEENT examination is grossly unremarkable. Mucous membranes are moist. No oral lesions. Neck supple. Full range of motion. No adenopathy thyromegaly or neck vein distention. Cardiovascular examination reveals regular rhythm rate. S1-S2 normal. No S3 or S4. No discernible murmur noted. Heart rate 75 bpm. Lungs reveal mild scattered rhonchi. No wheezes. No crackles. Room air saturation 96%. Breath sounds are equal bilaterally. Abdomen soft bowel sounds are heard. No masses or tenderness. Extremities are intact. No cyanosis clubbing or edema. Skin is without rash or lesion. Neurologic examination is brief but nonfocal. - Labs CBC & Chem 7: 03/16/23 09:20 03/16/23 09:20 Labs: Abnormal Lab Results - Last 24 Hours (Table) 03/16/23 03/16/23 Range/Units 09:20 09:20 WBC 13.5 H (3.8-10.6) k/uL Neutrophils # 11.7 H (1.3-7.7) k/uL BUN 24 H (9-20) mg/dL Glucose 197 H (74-99) mg/dL Albumin 3.4 L (3.5-5.0) g/dL Assessment and Plan Assessment: Acute hypoxemic respiratory failure, multifactorial. Acute influenza A tracheobronchitis. Acute COPD exacerbation. New onset atrial flutter with RVR. History of underlying coronary artery disease. Morbid obesity. Degenerative joint disease. Benign essential hypertension. Hyperlipidemia. Plan: Plan dated March 16, 2023. The patient appears to be doing much better. His procalcitonin level was normal. His Solu-Medrol will be converted to prednisone, 30 mg a day. He is continuing on Tamiflu, 75 mg twice a day for 5 days. He is also on updrafts. Currently, the patient is not on any supplemental oxygen, and not receiving any IV fluids. Labs, x-rays, and medications are all reviewed. The patient appears to be doing much better, and we will continue to follow the patient, and make recommendations along the way. Time with Patient: Less than 30
--- NOTE | 2023-03-16 13:25 | P.PN ---
Subjective Progress Note Date: 03/16/23 HISTORY OF PRESENT ILLNESS: This is a 62-year-old male with a past medical history significant for coronary artery disease with previous stenting, hypertension, hyperlipidemia, and morbid obesity. Patient follows in the office with Dr. Hernandez. We have been asked to see the patient in consultation for atrial flutter. Patient examined at the bedside. Patient initially presented to the hospital with a chief complaint of coughing and mild shortness of breath. The patient was found to be positive for influenza A. The patient currently denies any chest pain or pressure. He denies any shortness of breath. The patient went into atrial flutter VR. He was started on IV heparin and IV Cardizem. The patient does not have a history of atrial flutter or atrial fibrillation. He has subsequently converted to sinus mechanism and is maintaining sinus mechanism this morning at time of examination. DIAGNOSTICS: - EKG reveals atrial flutter with RVR - Chest xray minimal developing right lower lobe infiltrate may be present. Correlate for pneumonia and atelectasis Chest CTA: Negative for pulmonary embolism. Ascending aorta diameter at the level of the pulmonary artery is 4.3 cm. - Laboratory data: WBC 8.2. Hemoglobin 15.6. Platelet count 169. D-dimer 1.09. Sodium 139. Potassium 4.1. BUN 13. Creatinine 0.56. Magnesium 1.6. Troponin negative x 1. proBNP 640. - Current home cardiac medications include carvedilol 12.5 mg twice a day, losartanhydrochlorothiazide 100 mg - 12.5 mg daily, Zetia 10 mg daily, atorvastatin 80 mg daily, aspirin 81 mg daily - Echocardiogram obtained revealing ejection fraction 50 to 55%, mild tricuspid regurgitation, moderate concentric LVH, dilated aortic root measuring 4.2 cm - Cardiac catheterization history: September 2019 revealing 85% mid LAD, 99% proximal OM2, 60% mid LAD, right dominant system. Patient underwent stenting of the mid LAD and proximal OM 2 03/16 Patient is seen today in follow up. Patient went into AFib w RVR this morning. Patient denies any symptoms with this. He has been started back on cardizem gtt 10 mg/hr and coreg increased to 25 mg bid. BP 128/74. K 3.9. BUN 24, creat 0.71. HGB 15.1. TSH 0.077, normal FT4 1.14. PHYSICAL EXAM: VITAL SIGNS: Reviewed. GENERAL: Well-developed in no acute distress. HEENT: Head is normocephalic. Pupils are equal, round. Sclerae anicteric. Mucous membranes of the mouth are moist. Neck supple. No JVD or thyromegaly LUNGS: Respirations even and unlabored. Lungs essentially clear to auscultation bilaterally. HEART: Irregular rate and rhythm. S1 and S2 heard. ABDOMEN: Soft. Nondistended. Nontender. EXTREMITIES: Normal range of motion. No clubbing or cyanosis. Peripheral pulses intact. No lower extremity edema NEUROLOGIC: Awake and alert. Oriented x 3. ASSESSMENT: Acute influenza A New onset typical atrial flutter with RVR Coronary artery disease with previous stenting Hypertension Hyperlipidemia Morbid obesity: BMI 49.2 PLAN: Wean off IV Cardizem gtt Continue Eliquis 5 mg twice a day Increase carvedilol to 25 mg twice a day Continue telemetry monitoring Further recommendations pending patient course Nurse practitioner note has been reviewed by physician. Signing provider agrees with the documented findings, assessment, and plan of care documented by SIGNAL PERSON as a scribe. Objective - Vital Signs Vital signs: Vital Signs Temp 98 F 03/16/23 04:00 Pulse 88 03/16/23 09:11 Resp 18 03/16/23 04:00 BP 143/65 03/16/23 04:00 Pulse Ox 96 03/16/23 04:00 FiO2 Intake & Output 03/15/23 03/16/23 03/16/23 18:59 06:59 18:59 Intake Total 598 150 180 Balance 598 150 180 Intake: Oral 598 150 180 Other: Voiding Method Toilet Toilet # Voids 2 1 - Labs CBC & Chem 7: 03/16/23 09:20 03/16/23 09:20 Labs: Abnormal Lab Results - Last 24 Hours (Table) 03/15/23 Range/Units 06:32 TSH 0.077 L (0.465-4.680) mIU/L
[2023-03-16] MEDS: DILTIAZEM ORAL 30 MG TAB PO SCH ×2 (14:16→19:40)
[2023-03-16] MEDS: SENNOSIDES-DOCUSATE SODIUM 1 EACH TAB PO SCH (19:36)
[2023-03-16 21:45] VITALS: RESP 18
[2023-03-17] MEDS: carvediloL 12.5 MG TAB PO SCH ×2 (05:19→17:00)
[2023-03-17] MEDS: PANTOPRAZOLE 40 MG TABLET PO SCH (05:19)
[2023-03-17] MEDS: BUDESONIDE 1 MG/2 ML NEBU INHALATION SCH ×2 (09:26→21:30)
[2023-03-17] MEDS: IPRATROPIUM-ALBUTEROL 3 ML NEB INHALATION SCH ×4 (09:26→21:30)
[2023-03-17] MEDS: POTASSIUM CHLORIDE ER 10 MEQ TAB.ER.PRT PO SCH (09:44)
[2023-03-17] MEDS: ASPIRIN 81 MG PO SCH (09:44)
[2023-03-17] MEDS: predniSONE 10 MG TAB PO SCH (09:44)
[2023-03-17] MEDS: EZETIMIBE 10 MG TAB PO SCH (09:44)
[2023-03-17] MEDS: LOSARTAN 50 MG TAB PO SCH (09:44)
[2023-03-17] MEDS: ATORVASTATIN 80 MG TAB PO SCH (09:44)
[2023-03-17] MEDS: DILTIAZEM ORAL 30 MG TAB PO SCH ×3 (09:44→21:55)
[2023-03-17] MEDS: APIXABAN 5 MG TAB PO SCH ×2 (09:44→21:55)
[2023-03-17] MEDS: OSELTAMIVIR 75 MG CAP PO SCH ×2 (09:45→21:55)
[2023-03-17] MEDS: hydroCHLOROthiazide 12.5 MG CAP PO SCH (09:45)
[2023-03-17] MEDS: MULTIVITAMINS, THERA 1 EACH TAB PO SCH (12:30)
--- NOTE | 2023-03-17 13:03 | P.PN ---
Subjective Progress Note Date: 03/17/23 Principal diagnosis: Influenza A, atrial flutter. Is a 62-year-old white male with history of hypertension, coronary artery disease and previous PCI of the LAD. Also had stent of the obtuse marginal branch #2 patient also had previous sleeve gastrectomy back in 2013, patient was seen in the ER with 2 days history of low-grade fever, cough, flulike illness, and he was noted to have O2 saturation about 88% on room air. Patient was sent to the ER, and chest x-ray initially questioned developing infiltrate in the right lower lobe but since his D-dimer came back elevated patient had a CT angiogram of the chest showed no evidence of pulmonary embolism and no evidence of pneumonia. While in the ER, patient was noted to have atrial fibrillation/flutter with RVR which is a new finding. Hence patient was admitted and this consult was initiated. Today the patient is feeling better, does not seem to be in any distress,BNP level is normal, patient tested positive for influenza A by PCR. Patient was seen by cardiology on consultation, and felt that this is a new onset atrial flutter with RVR, patient was initially placed on IV Cardizem, and on heparin, after evaluation by cardiology today, both were discontinued, patient started on Eliquis 5 mg twice daily, and incre ased Coreg to 12.5 mg twice daily. Thyroid testing was initiated.Pulmonary slater, patient is feeling better however he is on 3 L nasal cannula and O2 sats is 94% patient does not seem to be in any distress. Patient has been a smoker over the years, he smokes mostly cigars. He was smoking cigars until few days ago labs showed relatively normal CBC and normal basic metabolic profile normal renal profile, And normal thyroid profile. Progress note dated March 16, 2023. This is a 62-year-old male who was seen by my partner yesterday in consultation. The patient has a history of hypertension, and coronary artery disease. The patient was admitted with a diagnosis of acute hypoxemic respiratory failure, secondary to influenza A tracheobronchitis, and COPD exacerbation, as well as atrial flutter with RVR. Currently, the patient is resting comfortably in room 355. His Solu-Medrol will be converted to prednisone 30 mg a day. He continues on Tamiflu, and updraft treatments. His procalcitonin level was normal. The patient is on room air. He is not receiving any IV fluids. Sitting in a chair, next to his hospital bed. White count 13.5, hemoglobin 15.1, hematocrit 47.5, platelet count 181,000. Sodium 139, potassium 3.9, chlorides 101, CO2 30, BUN 24, and creatinine 0.71. Chest x-ray shows a possible developing right lower lobe infiltrate. CT angiogram was negative for PE. No mention of an infiltrate on the CT angiogram. Progress note dated March 17, 2023. This is a 62-year-old male seen in room 355. The patient was diagnosed as having influenza A, as well as atrial fibrillation with RVR. The patient is currently on room air. He is not receiving any IV fluids. In addition, the patient was diagnosed as having COPD exacerbation. According to the patient, he states that his primary care physician told him he would be discharged tomorrow. No new labs today. Labs from March 16 were reviewed. Microbiologic testing is negative or pending. No recent chest x-ray. Objective - Vital Signs Vital signs: Vital Signs Temp 98.1 F 03/17/23 04:00 Pulse 85 03/17/23 12:07 Resp 18 03/17/23 04:00 BP 119/73 03/17/23 04:00 Pulse Ox 94 L 03/17/23 09:27 FiO2 Intake & Output 03/16/23 03/17/23 03/17/23 18:59 06:59 18:59 Intake Total 367.5 200 360 Output Total 200 Balance 167.5 200 360 Intake: Intake, IV Titration 7.5 Amount Diltiazem 125 mg In 7.5 Sodium Chloride 0.9% 100 ml @ 10 MG/HR 10 mls/hr IV .[id number] [facility] Rx#: [id number] Oral 360 200 360 Output: Urine 200 Other: Voiding Method Toilet # Voids 2 1 - Exam No acute distress, oriented 3. No respiratory distress, conversational dyspnea, or use of accessory muscles. HEENT examination is grossly unremarkable. Mucous membranes are moist. No oral lesions. Neck supple. Full range of motion. No adenopathy thyromegaly or neck vein distention. Cardiovascular examination reveals regular rhythm rate. S1-S2 normal. No S3 or S4. No discernible murmur noted. Heart rate 85 bpm. Lungs reveal mild scattered rhonchi. No wheezes. No crackles. Room air satur ation 94 %. Breath sounds are equal bilaterally. Abdomen soft bowel sounds are heard. No masses or tenderness. Extremities are intact. No cyanosis clubbing or edema. Skin is without rash or lesion. Neurologic examination is brief but nonfocal. - Labs CBC & Chem 7: 03/16/23 09:20 03/16/23 09:20 Assessment and Plan Assessment: Acute hypoxemic respiratory failure, multifactorial. Acute influenza A tracheobronchitis. Acute COPD exacerbation. New onset atrial flutter with RVR. History of underlying coronary artery disease. Morbid obesity. Degenerative joint disease. Benign essential hypertension. Hyperlipidemia. Plan: Plan dated March 16, 2023. The patient appears to be doing much better. His procalcitonin level was normal. His Solu-Medrol will be converted to prednisone, 30 mg a day. He is continuing on Tamiflu, 75 mg twice a day for 5 days. He is also on updrafts. Currently, the patient is not on any supplemental oxygen, and not receiving any IV fluids. Labs, x-rays, and medications are all reviewed. The patient appears to be doing much better, and we will continue to follow the patient, and make recommendations along the way. Plan dated March 17, 2023. Currently, the patient appears to be relatively stable. The patient is curren tly on room air. He is not receiving any IV fluids. For his COPD, he is on albuterol sulfate, ipratropium bromide, and budesonide. In addition, the patient is on prednisone 30 mg a day, and is completing his Tamiflu, 75 mg twice a day for 5 days. The patient states that his breathing is stable. Labs x-rays and medications are all reviewed. The patient will likely be discharged in the near future. No additional recommendations are made. Prognosis is guarded. His procalcitonin level was normal. Time with Patient: Less than 30
--- NOTE | 2023-03-17 15:41 | P.PN ---
Subjective Progress Note Date: 03/17/23 HISTORY OF PRESENT ILLNESS: This is a 62-year-old male with a past medical history significant for coronary artery disease with previous stenting, hypertension, hyperlipidemia, and morbid obesity. Patient follows in the office with Dr. Hernandez. We have been asked to see the patient in consultation for atrial flutter. Patient examined at the bedside. Patient initially presented to the hospital with a chief complaint of coughing and mild shortness of breath. The patient was found to be positive for influenza A. The patient currently denies any chest pain or pressure. He denies any shortness of breath. The patient went into atrial flutter VR. He was started on IV heparin and IV Cardizem. The patient does not have a history of atrial flutter or atrial fibrillation. He has subsequently converted to sinus mechanism and is maintaining sinus mechanism this morning at time of examination. DIAGNOSTICS: - EKG reveals atrial flutter with RVR - Chest xray minimal developing right lower lobe infiltrate may be present. Correlate for pneumonia and atelectasis Chest CTA: Negative for pulmonary embolism. Ascending aorta diameter at the level of the pulmonary artery is 4.3 cm. - Laboratory data: WBC 8.2. Hemoglobin 15.6. Platelet count 169. D-dimer 1.09. Sodium 139. Potassium 4.1. BUN 13. Creatinine 0.56. Magnesium 1.6. Troponin negative x 1. proBNP 640. - Current home cardiac medications include carvedilol 12.5 mg twice a day, losartanhydrochlorothiazide 100 mg - 12.5 mg daily, Zetia 10 mg daily, atorvastatin 80 mg daily, aspirin 81 mg daily - Echocardiogram obtained revealing ejection fraction 50 to 55%, mild tricuspid regurgitation, moderate concentric LVH, dilated aortic root measuring 4.2 cm - Cardiac catheterization history: September 2019 revealing 85% mid LAD, 99% proximal OM2, 60% mid LAD, right dominant system. Patient underwent stenting of the mid LAD and proximal OM 2 03/16 Patient is seen today in follow up. Patient went into AFib w RVR this morning. Patient denies any symptoms with this. He has been started back on cardizem gtt 10 mg/hr and coreg increased to 25 mg bid. BP 128/74. K 3.9. BUN 24, creat 0.71. HGB 15.1. TSH 0.077, normal FT4 1.14. 03/17 But yesterday afternoon, patient continued to be in atrial fibrillation mostly rate was controlled but he did have episodes jumping up to 130s and he was started on oral Cardizem. By the time he was weaned off IV Cardizem. He has been maintained on Coreg which was increased yesterday to 25 mg twice daily and patient has been maintained on Eliquis. Patient continues to be in atrial fibrillation but rate is improved at the time of evaluation. Blood pressure 119/73. WBC 13.5, hemoglobin 15.1, potassium 3.9, creatinine 0.71. PHYSICAL EXAM: VITAL SIGNS: Reviewed. GENERAL: Well-developed in no acute distress. HEENT: Head is normocephalic. Pupils are equal, round. Sclerae anicteric. Mucous membranes of the mouth are moist. Neck supple. No JVD or thyromegaly LUNGS: Respirations even and unlabored. Lungs essentially clear to auscultation bilaterally. HEART: Irregular rate and rhythm. S1 and S2 heard. ABDOMEN: Soft. Nondistended. Nontender. EXTREMITIES: Normal range of motion. No clubbing or cyanosis. Peripheral pulses intact. No lower extremity edema NEUROLOGIC: Awake and alert. Oriented x 3. ASSESSMENT: Acute influenza A New onset typical atrial flutter with RVR, paroxysmal atrial fibrillation currently rate controlled Coronary artery disease with previous stenting Hypertension Hyperlipidemia Morbid obesity: BMI 49.2 PLAN: Continue Eliquis 5 mg twice a day Continue carvedilol to 25 mg twice a day Continue Cardizem 30 mg 3 times daily Continue telemetry monitoring Further recommendations pending patient course Nurse practitioner note has been reviewed by physician. Signing provider agrees with the documented findings, assessment, and plan of care documented by BUGGY OPERATOR as a scribe. Objective - Vital Signs Vital signs: Vital Signs Temp 98.1 F 03/17/23 04:00 Pulse 85 03/17/23 12:07 Resp 18 03/17/23 04:00 BP 119/73 03/17/23 04:00 Pulse Ox 94 L 03/17/23 09:27 FiO2 Intake & Output 03/16/23 03/17/23 03/17/23 18:59 06:59 18:59 Intake Total 367.5 200 360 Output Total 200 Balance 167.5 200 360 Intake: Intake, IV Titration 7.5 Amount Diltiazem 125 mg In 7.5 Sodium Chloride 0.9% 100 ml @ 10 MG/HR 10 mls/hr IV .[id number] [facility] Rx#: [id number] Oral 360 200 360 Output: Urine 200 Other: Voiding Method Toilet # Voids 2 1 - Labs CBC & Chem 7: 03/16/23 09:20 03/16/23 09:20
--- NOTE | 2023-03-17 16:52 | P.PN ---
Subjective Progress Note Date: 03/16/23 HISTORY OF PRESENT ILLNESS: This is a 62-year-old male with a previous medical history significant for hypertension and hypertensive cardiovascular disease, hyperlipidemia, coronary artery disease status post PCI of the LAD as well as the obtuse marginal branch #2 with moderate disease of the RCA back in 2019, super morbid obesity status post sleeve gastrectomy back in 2013, currently getting phentermine 37.5 mg orally once every day, patient was in his usual state of health with about 2 days ago when he came down with a scratchy throat associated with low-grade temperature and increased shortness of breath, today in the morning he was coughing some white phlegm associated with increased difficulty breathing he went to [facility] urgent care and he was found to have influenza A but his oxygen saturation was around 88%, so he was referred to the emergency department at [facility], he was seen in the ER by Dr. Seals had a chest x-ray that showed possible developing infiltrate in the right lower lobe, his D- dimer came back elevated, his oxygenation was 90% on room air, he was placed on 3 L nasal cannula, he was given nebulized treatment, and he was sent for CT angiography of the chest that showed thoracic aortic aneurysm at 4.3 cm without evidence of pulmonary infiltrate or pulmonary embolism, patient was started on heparin drip as well as Cardizem drip, he was also started on Tamiflu 75 mg orally twice every day, he was admitted to the hospital to be evaluated by cardiology as well as pulmonary medicine. 03/15: Patient sitting up in bed is feeling a lot better today, he denies any chest pain, he is less short of breath, he continues to be on 3 L nasal cannula, he was seen earlier by cardiology, he was taken off heparin drip, he was started on Eliquis 5 mg orally twice every day, Cardizem drip was discontinued and the patient Coreg was increased to 12.5 mg orally twice every day, continue IV steroids, decrease to 40 mg IV push every 8 hours, continue nebulized treatment, continue Pulmicort, continue Tamiflu, continue to monitor the patient very closely. Echocardiogram was reviewed. Did show ejection fraction 55%, tricuspid regurgitation, dilated aortic root without evidence of aortic regurgitation. 03/16: Patient is back in atrial fibrillation again after he was bending over and he feels his heart is racing, he will be back on cardizem drip and he was increased on his Carvedilol to 25 mg po bid, we will continue with Eliquis 5 mg po bid and we will decrease Solu-Medrol 40 mg IVP q 8 hours and we will continue with tamiflu and Nebulized treatment along with O2 support REVIEW OF SYSTEMS: Constitutional: low grade fever, no chills, no night sweats. No weight change. No weakness, fatigue or lethargy. No daytime sleepiness. HEENT: No headache. No blurred vision or double vision, no loss of vision. No loss of Hearing, no ringing in the ears, no dizziness. No nasal drainage or congestion. No epistaxis. No sore throat. Lungs: positive for shortness of breath, positive for cough, positive for white sputum production. positive for wheezing. Reports dyspnea with activity. Cardiovascular: No chest pain, no lower extremity edema. No palpitations. No paroxysmal nocturnal dyspnea. No orthopnea. No lightheadedness or dizziness. No syncopal episodes. Abdominal: Reports no abdominal pain. No nausea, vomiting. No diarrhea. No constipation. No bloody or tarry stools reports loss of appetite. Genitourinary: No dysuria, increased frequency, urgency. No urinary retention. Musculoskeletal: No myalgias. No muscle weakness, no gait dysfunction, no frequent falls. No back pain. No neck pain. Integumentary: no wounds, no lesions. No rash or pruritus. No unusual bruising. No change in hair or nails. Neurologic: No aphasia. No facial droop. No change in mentation. No head injury. No headache. No paralysis. No paresthesia. Psychiatric: No depression. No anxiety. No mood swings. Endocrine: No abnormal blood sugars. No weight change. PHYSICAL EXAMINATION: General: 62-year-old male sitting up in chair with loreto HEENT: Head is atraumatic, normocephalic, pupils were equal round reactive to light and recommendation, extraocular muscle movement were intact, sclera nonicteric, conjunctivae were pale, mucous membranes of the mouth are somewhat dry. Neck: Supple, no JVP, normal carotid upstroke bilaterally, no lymphadenopathy. Chest: Decreased breath sounds at the bases, few rhonchi, minimal expiratory wheezes, no chest wall tenderness, no intercostal retractions. Heart: First heart sound is normal, second heart sound is normal there is JAVIER 2/6 located at the left sternal border, irregularly irregular Abdomen: Soft, nontender, nondistended, positive bowel sounds. Extremities: There is +1 edema no calf tenderness DP +2 bilaterall. Neurologic examination: Patient is awake alert and oriented X 3 , cranial nerves II-12 appear grossly intact, muscle power were 5 out of 5 in upper extremities and 5 out of 5 in bilateral lower extremities, deep tendon reflexes normal bilaterally. ASSESSMENT AND PLAN: 1. Acute hypoxemic respiratory failure due to acute diastolic heart failure due to atrial fibrillation/flutter with RVR , influenza A, and COPD exacerbation. Continue patient on carvedilol 25 mg orally twice a day, continue patient on Tamiflu 75 mg orally twice every day , DuoNeb 3 mL nebulization 4 times every day, oxygen support, continue also Pulmicort 1 mg nebulization twice every day, we will be back on Cardizem drip with goal to transition into po cardizem 2. Influenza A. patient on Tamiflu 75 mg orally twice a day for 5 days, continue patient on oxygen 3 L nasal cannula, continue DuoNeb 3 mL nebulizer 4 times every day, continue Solu-Medrol 40 mg IV push every 8 hours pulmonary consultation. Start the patient on Pulmicort 1 mg nebulization twice every day as well. 3. New onset atrial fibrillation/flutter. Continue carvedilol 25 mg twice every da, Eliquis 5 mg orally twice every day. 4. Hypertension and hypertensive cardiovascular disease . Continue patient on carvedilol 25 mg orally twice every day, continue losartan 100/12.5 mg orally once every day, oxygen the patient blood pressure very closely. 5. Mixed hyperlipidemia. Continue atorvastatin 80 mg orally once every day, Zetia 10 mg once every day, keep LDL 55-70. 6. Osteoarthritis. Post bilateral total knee arthroplasties. 7. CAD post-PCI of the LAD and obtuse marginal branch 2. Continue patient on aspirin 81 mg once every day, continue carvedilol 25 mg orally twice every day as well as atorvastatin 80 mg orally once every day. 8. Super morbid obesity. Patient has been on phentermine we will hold for now. 9. DVT prophylaxis patient is on Eliquis 5 mg orally twice a day. 10. GI prophylaxis. on Protonix 40 mg orally once every day. 11. Right hydrocele. Reassured about the benign nature of the illness, will continue to monitor, patient may need to have this taken care of as an outpatient with urology. 12. Full code 13. Obesity with CAROLINE . we will continue with diet and weight loss, will need to have sleep study as outpatient . Objective - Vital Signs Vital signs: Vital Signs Temp 98.1 F 03/17/23 04:00 Pulse 77 03/17/23 15:18 Resp 18 03/17/23 04:00 BP 119/73 03/17/23 04:00 Pulse Ox 94 L 03/17/23 09:27 FiO2 Intake & Output 03/16/23 03/17/23 03/17/23 18:59 06:59 18:59 Intake Total 367.5 200 360 Output Total 200 Balance 167.5 200 360 Intake: Intake, IV Titration 7.5 Amount Diltiazem 125 mg In 7.5 Sodium Chloride 0.9% 100 ml @ 10 MG/HR 10 mls/hr IV .[id number] [facility] Rx#: [id number] Oral 360 200 360 Output: Urine 200 Other: Voiding Method Toilet # Voids 2 1 - Labs CBC & Chem 7: 03/16/23 09:20 03/16/23 09:20
--- NOTE | 2023-03-17 16:55 | P.PN ---
Subjective Progress Note Date: 03/17/23 HISTORY OF PRESENT ILLNESS: This is a 62-year-old male with a previous medical history significant for hypertension and hypertensive cardiovascular disease, hyperlipidemia, coronary artery disease status post PCI of the LAD as well as the obtuse marginal branch #2 with moderate disease of the RCA back in 2019, super morbid obesity status post sleeve gastrectomy back in 2013, currently getting phentermine 37.5 mg orally once every day, patient was in his usual state of health with about 2 days ago when he came down with a scratchy throat associated with low-grade temperature and increased shortness of breath, today in the morning he was coughing some white phlegm associated with increased difficulty breathing he went to [facility] urgent care and he was found to have influenza A but his oxygen saturation was around 88%, so he was referred to the emergency department at [facility], he was seen in the ER by Dr. Seals had a chest x-ray that showed possible developing infiltrate in the right lower lobe, his D- dimer came back elevated, his oxygenation was 90% on room air, he was placed on 3 L nasal cannula, he was given nebulized treatment, and he was sent for CT angiography of the chest that showed thoracic aortic aneurysm at 4.3 cm without evidence of pulmonary infiltrate or pulmonary embolism, patient was started on heparin drip as well as Cardizem drip, he was also started on Tamiflu 75 mg orally twice every day, he was admitted to the hospital to be evaluated by cardiology as well as pulmonary medicine. 03/15: Patient sitting up in bed is feeling a lot better today, he denies any chest pain, he is less short of breath, he continues to be on 3 L nasal cannula, he was seen earlier by cardiology, he was taken off heparin drip, he was started on Eliquis 5 mg orally twice every day, Cardizem drip was discontinued and the patient Coreg was increased to 12.5 mg orally twice every day, continue IV steroids, decrease to 40 mg IV push every 8 hours, continue nebulized treatment, continue Pulmicort, continue Tamiflu, continue to monitor the patient very closely. Echocardiogram was reviewed. Did show ejection fraction 55%, tricuspid regurgitation, dilated aortic root without evidence of aortic regurgitation. 03/16: Patient is back in atrial fibrillation again after he was bending over and he feels his heart is racing, he will be back on cardizem drip and he was increased on his Carvedilol to 25 mg po bid, we will continue with Eliquis 5 mg po bid and we will decrease Solu-Medrol 40 mg IVP q 8 hours and we will continue with tamiflu and Nebulized treatment along with O2 support 03/17: Feeling better was taken off cardizem drip and he was placed on Cardizem 30 mg po three times a day, we will continue with Eliquis 5 mg po bid along with Carvedilol 25 mg po bid and will continue to wean off O2 , [facility] [place], switched Prednisone to 30 mg po daily REVIEW OF SYSTEMS: Constitutional: low grade fever, no chills, no night sweats. No weight change. No weakness, fatigue or lethargy. No daytime sleepiness. HEENT: No headache. No blurred vision or double vision, no loss of vision. No loss of Hearing, no ringing in the ears, no dizziness. No nasal drainage or congestion. No epistaxis. No sore throat. Lungs: positive for shortness of breath, positive for cough, positive for white sputum production. positive for wheezing. Reports dyspnea with activity. Cardiovascular: No chest pain, no lower extremity edema. No palpitations. No paroxysmal nocturnal dyspnea. No orthopnea. No lightheadedness or dizziness. No syncopal episodes. Abdominal: Reports no abdominal pain. No nausea, vomiting. No diarrhea. No constipation. No bloody or tarry stools reports loss of appetite. Genitourinary: No dysuria, increased frequency, urgency. No urinary retention. Musculoskeletal: No myalgias. No muscle weakness, no gait dysfunction, no frequent falls. No back pain. No neck pain. Integumentary: no wounds, no lesions. No rash or pruritus. No unusual bruising. No change in hair or nails. Neurologic: No aphasia. No facial droop. No change in mentation. No head injury. No headache. No paralysis. No paresthesia. Psychiatric: No depression. No anxiety. No mood swings. Endocrine: No abnormal blood sugars. No weight change. PHYSICAL EXAMINATION: General: 62-year-old male sitting up in chair with loreto HEENT: Head is atraumatic, normocephalic, pupils were equal round reactive to light and recommendation, extraocular muscle movement were intact, sclera nonicteric, conjunctivae were pale, mucous membranes of the mouth are somewhat dry. Neck: Supple, no JVP, normal carotid upstroke bilaterally, no lymphadenopathy. Chest: Decreased breath sounds at the bases, few rhonchi, minimal expiratory wheezes, no chest wall tenderness, no intercostal retractions. Heart: First heart sound is normal, second heart sound is normal there is JAVIER 2/6 located at the left sternal border, irregularly irregular Abdomen: Soft, nontender, nondistended, positive bowel sounds. Extremities: There is +1 edema no calf tenderness DP +2 bilaterall. Neurologic examination: Patient is awake alert and oriented X 3 , cranial nerves II-12 appear grossly intact, muscle power were 5 out of 5 in upper extremities and 5 out of 5 in bilateral lower extremities, deep tendon reflexes normal bilaterally. ASSESSMENT AND PLAN: 1. Acute hypoxemic respiratory failure due to acute diastolic heart failure due to atrial fibrillation/flutter with RVR , influenza A, and COPD exacerbation. Continue patient on carvedilol 25 mg orally twice a day, continue patient on Tamiflu 75 mg orally twice every day , DuoNeb 3 mL nebulization 4 times every day, oxygen support, continue also Pulmicort 1 mg nebulization twice every day, continue with cardizem 30 mg po tid and prednisone 30 mg po daily 2. Influenza A. patient on Tamiflu 75 mg orally twice a day for 5 days, continue patient on oxygen 3 L nasal cannula, continue DuoNeb 3 mL nebulizer 4 times every day,continue with Prednisone 30 mg po daily 3. New onset atrial fibrillation/flutter. Continue carvedilol 25 mg twice every da, Eliquis 5 mg orally twice every day and Cardizem 30 mg po tid 4. Hypertension and hypertensive cardiovascular disease . Continue patient on carvedilol 25 mg orally twice every day, continue losartan 100/12.5 mg orally once every day, oxygen the patient blood pressure very closely. 5. Mixed hyperlipidemia. Continue atorvastatin 80 mg orally once every day, Zetia 10 mg once every day, keep LDL 55-70. 6. Osteoarthritis. Post bilateral total knee arthroplasties. 7. CAD post-PCI of the LAD and obtuse marginal branch 2. Continue patient on aspirin 81 mg once every day, continue carvedilol 25 mg orally twice every day as well as atorvastatin 80 mg orally once every day. 8. Super morbid obesity. Patient has been on phentermine we will hold for now. 9. DVT prophylaxis patient is on Eliquis 5 mg orally twice a day. 10. GI prophylaxis. on Protonix 40 mg orally once every day. 11. Right hydrocele. Reassured about the benign nature of the illness, will continue to monitor, patient may need to have this taken care of as an outpatient with urology. 12. Full code 13. Obesity with CAROLINE . we will continue with diet and weight loss, will need to have sleep study as outpatient . 14. Home in AM Objective - Vital Signs Vital signs: Vital Signs Temp 98.1 F 03/17/23 04:00 Pulse 77 03/17/23 15:18 Resp 18 03/17/23 04:00 BP 119/73 03/17/23 04:00 Pulse Ox 94 L 03/17/23 09:27 FiO2 Intake & Output 03/16/23 03/17/23 03/17/23 18:59 06:59 18:59 Intake Total 367.5 200 360 Output Total 200 Balance 167.5 200 360 Intake: Intake, IV Titration 7.5 Amount Diltiazem 125 mg In 7.5 Sodium Chloride 0.9% 100 ml @ 10 MG/HR 10 mls/hr IV .[id number] [facility] Rx#: [id number] Oral 360 200 360 Output: Urine 200 Other: Voiding Method Toilet # Voids 2 1 - Labs CBC & Chem 7: 03/16/23 09:20 03/16/23 09:20
[2023-03-17] MEDS: SENNOSIDES-DOCUSATE SODIUM 1 EACH TAB PO SCH (21:56)
[2023-03-18] MEDS: carvediloL 12.5 MG TAB PO SCH (06:48)
[2023-03-18] MEDS: PANTOPRAZOLE 40 MG TABLET PO SCH (06:48)
[2023-03-18] MEDS: LOSARTAN 50 MG TAB PO SCH (07:57)
[2023-03-18] MEDS: predniSONE 10 MG TAB PO SCH (07:57)
[2023-03-18] MEDS: EZETIMIBE 10 MG TAB PO SCH (07:57)
[2023-03-18] MEDS: ASPIRIN 81 MG PO SCH (07:57)
[2023-03-18] MEDS: ATORVASTATIN 80 MG TAB PO SCH (07:57)
[2023-03-18] MEDS: DILTIAZEM ORAL 30 MG TAB PO SCH (07:58)
[2023-03-18] MEDS: POTASSIUM CHLORIDE ER 10 MEQ TAB.ER.PRT PO SCH (07:58)
[2023-03-18] MEDS: APIXABAN 5 MG TAB PO SCH (07:58)
[2023-03-18] MEDS: OSELTAMIVIR 75 MG CAP PO SCH (08:00)
[2023-03-18] MEDS: hydroCHLOROthiazide 12.5 MG CAP PO SCH (08:00)
[2023-03-18] MEDS: IPRATROPIUM-ALBUTEROL 3 ML NEB INHALATION SCH ×2 (08:39→11:48)
[2023-03-18] MEDS: BUDESONIDE 1 MG/2 ML NEBU INHALATION SCH (08:40)
[2023-03-18 09:00] LABS: Basophils # (A) 0.1 k/uL (0-0.2); Basophils % (A) 0 %; Eosinophils # (A) 0.1 k/uL (0-0.7); Eosinophils % (A) 0 %; HCT 50.8 % (39.0-53.0); HGB 16.4 gm/dL (13.0-17.5); Lymphocytes # (A) 3.3 k/uL (1.0-4.8); Lymphocytes % (A) 29 %; MCH 28.2 pg (25.0-35.0); MCHC 32.3 g/dL (31.0-37.0); MCV 87.4 fL (80.0-100.0); Mean Platelet Volume 8.6; Monocytes # (A) 0.7 k/uL (0-1.0); Monocytes % (A) 6 %; Neutrophils % (A) 62 %; Platelet Count 197 k/uL (150-450); RBC 5.81 m/uL (4.30-5.90); RDW 14.1 % (11.5-15.5); WBC 11.4 k/uL (3.8-10.6)
[2023-03-18 09:03] VITALS: PULSE 86
[2023-03-18 09:33] LABS: ALT 33 U/L (4-49); AST 24 U/L (17-59); African American GFR (CKD) >90 (>60 ml/min/1.73 sqM); Albumin 3.5 g/dL (3.5-5.0); Alkaline Phosphatase 98 U/L (38-126); Anion Gap 9 mmol/L; Blood Urea Nitrogen 24 mg/dL (9-20); Calcium 8.5 mg/dL (8.4-10.2); Carbon Dioxide 31 mmol/L (22-30); Chloride 100 mmol/L (98-107); Glucose 191 mg/dL (74-99); Non-African American GFR(CKD) >90 (>60 ml/min/1.73 sqM); Potassium 3.4 mmol/L (3.5-5.1); Sodium 140 mmol/L (137-145); Total Bilirubin 0.8 mg/dL (0.2-1.3); Total Protein 6.7 g/dL (6.3-8.2)
[2023-03-18 10:01] VITALS: BP 128/69; TEMP 96.1
--- NOTE | 2023-03-18 10:45 | P.DS ---
Providers Date of admission: 03/16/23 07:17 Expected date of discharge: 03/18/23 Attending physician: Roosevelt العلي Consults: 03/14/23 14:34 Consult Physician Routine Consulting Provider: Kristofer Reynolds Consult Reason/Comments: a flutter Do you want consulting provider notified?: Yes 03/14/23 14:40 Consult Physician Urgent Consulting Provider: Nicholas Thorne Consult Reason/Comments: dyspnea Do you want consulting provider notified?: Yes Primary care physician: Roosevelt العلي Hospital Course: HISTORY OF PRESENT ILLNESS: This is a 62-year-old male with a previous medical history significant for hypertension and hypertensive cardiovascular disease, hyperlipidemia, coronary artery disease status post PCI of the LAD as well as the obtuse marginal branch #2 with moderate disease of the RCA back in 2019, super morbid obesity status post sleeve gastrectomy back in 2013, currently getting phentermine 37.5 mg orally once every day, patient was in his usual state of he alth with about 2 days ago when he came down with a scratchy throat associated with low-grade temperature and increased shortness of breath, today in the morning he was coughing some white phlegm associated with increased difficulty breathing he went to [facility] urgent care and he was found to have influenza A but his oxygen saturation was around 88%, so he was referred to the emergency department at [facility], he was seen in the ER by Dr. Seals had a chest x-ray that showed possible developing infiltrate in the right lower lobe, his D- dimer came back elevated, his oxygenation was 90% on room air, he was placed on 3 L nasal cannula, he was given nebulized treatment, and he was sent for CT angiography of the chest that showed thoracic aortic aneurysm at 4.3 cm without evidence of pulmonary infiltrate or pulmonary embolism, patient was started on heparin drip as well as Cardizem drip, he was also started on Tamiflu 75 mg orally twice every day, he was admitted to the hospital to be evaluated by cardiology as well as pulmonary medicine. 03/15: Patient sitting up in bed is feeling a lot better today, he denies any chest pain, he is less short of breath, he continues to be on 3 L nasal cannula, he was seen earlier by cardiology, he was taken off heparin drip, he was started on Eliquis 5 mg orally twice every day, Cardizem drip was discontinued and the patient Coreg was increased to 12.5 mg orally twice every day, continue IV steroids, decrease to 40 mg IV push every 8 hours, continue nebulized treatment, continue Pulmicort, continue Tamiflu, continue to monitor the patient very closely. Echocardiogram was reviewed. Did show ejection fraction 55%, tricuspid regurgitation, dilated aortic root without evidence of aortic regurgitation. 03/16: Patient is back in atrial fibrillation again after he was bending over and he feels his heart is racing, he will be back on cardizem drip and he was increased on his Carvedilol to 25 mg po bid, we will continue with Eliquis 5 mg po bid and we will decrease Solu-Medrol 40 mg IVP q 8 hours and we will continue with tamiflu and Nebulized treatment along with O2 support 03/17: Feeling better was taken off cardizem drip and he was placed on Cardizem 30 mg po three times a day, we will continue with Eliquis 5 mg po bid along with Carvedilol 25 mg po bid and will continue to wean off O2 [facility] [place], switched Prednisone to 30 mg po daily 03/18: Patient remains in atrial fibrillation and rate is controlled. He has been maintained on Eliquis, Coreg 25 mg twice daily, Cardizem 30 mg 3 times daily. Pulmonary medicine is changed IV steroids to prednisone oral. Patient has been cleared by pulmonary medicine and cardiology. Patient is anxious to be discharged and go home today. Patient will be discharged home today in stable condition. DISCHARGE DIAGNOSES 1. Acute hypoxemic respiratory failure due to acute diastolic heart failure due to atrial fibrillation/flutter with RVR, influenza A, and COPD exacerbation. 2. Influenza A. 3. New onset atrial fibrillation/flutter. 4. Hypertension and hypertensive cardiovascular disease. 5. Mixed hyperlipidemia. 6. Osteoarthritis bilateral knee. 7. CAD post-PCI of the LAD and obtuse marginal branch 2. 8. Super morbid obesity. 9. Right hydrocele. 10. Obesity with CAROLINE. Greater than 35 minutes was utilized and coordinating patient's discharge. Impression and plan of care have been directed as dictated by the signing physician. Di Faulkner nurse practitioner acting as scribe for signing physician. Plan - Discharge Summary Discharge Rx Participant: No New Discharge Prescriptions: New carvediloL [Coreg] 25 mg PO BID #180 tablet Multivitamins, Thera [Multivitamin (formulary)] 1 each PO DAILY@1200 #0 tab predniSONE 0 mg PO DIRECTED #18 tab Oseltamivir [Tamiflu] 75 mg PO Q12HR #10 cap dilTIAZem HCL [Cardizem CD] 120 mg PO Q24HR #90 cap Apixaban [Eliquis] 5 mg PO BID #180 tab Continue Aspirin 81 mg PO DAILY chew Ezetimibe [Zetia] 10 mg PO DAILY Phentermine HCl 37.5 mg PO DAILY Losartan/Hydrochlorothiazide [Hyzaar 100-12.5 Tablet] 1 tab PO DAILY Albuterol Sulfate [Albuterol Sulfate Hfa] 1 puff INHALATION RT-Q4H PRN PRN Reason: Shortness Of Breath Potassium Chloride ER [K-Dur 10] 10 meq PO DAILY Nitroglycerin Sl Tabs [Nitrostat] 0.4 mg SL Q5M PRN PRN Reason: Chest Pain Atorvastatin [Lipitor] 80 mg PO DAILY Discontinued carvediloL [Coreg] 12.5 mg PO BID Discharge Medication List Aspirin 81 mg PO DAILY chew 10/03/19 [Rx] Ezetimibe [Zetia] 10 mg PO DAILY 06/11/22 [History] Losartan/Hydrochlorothiazide [Hyzaar 100-12.5 Tablet] 1 tab PO DAILY 11/13/22 [History] Phentermine HCl 37.5 mg PO DAILY 11/13/22 [History] Albuterol Sulfate [Albuterol Sulfate Hfa] 1 puff INHALATION RT-Q4H PRN 03/14/23 [History] Atorvastatin [Lipitor] 80 mg PO DAILY 03/14/23 [History] Nitroglycerin Sl Tabs [Nitrostat] 0.4 mg SL Q5M PRN 03/14/23 [History] Potassium Chloride ER [K-Dur 10] 10 meq PO DAILY 03/14/23 [History] Apixaban [Eliquis] 5 mg PO BID #180 tab 03/18/23 [Rx] Multivitamins, Thera [Multivitamin (formulary)] 1 each PO DAILY@1200 #0 tab 03/18/23 [Rx] Oseltamivir [Tamiflu] 75 mg PO Q12HR #10 cap 03/18/23 [Rx] carvediloL [Coreg] 25 mg PO BID #180 tablet 03/18/23 [Rx] dilTIAZem HCL [Cardizem CD] 120 mg PO Q24HR #90 cap 03/18/23 [Rx] predniSONE 0 mg PO DIRECTED #18 tab 03/18/23 [Rx] Follow up Appointment(s)/Referral(s): Kimmy Hernandez MD [STAFF PHYSICIAN] - 1 Week (has appointment) Roosevelt العلي MD [Primary Care Provider] - 1-2 days (Has an appointment Thursday) Patient Instructions/Handouts: Atrial Flutter (DC), H1N1 Influenza (DC) Discharge Disposition: HOME SELF-CARE
--- NOTE | 2023-03-18 10:47 | P.PN ---
Subjective Progress Note Date: 03/18/23 HISTORY OF PRESENT ILLNESS: This is a 62-year-old male with a past medical history significant for coronary artery disease with previous stenting, hypertension, hyperlipidemia, and morbid obesity. Patient follows in the office with Dr. Hernandez. We have been asked to see the patient in consultation for atrial flutter. Patient examined at the bedside. Patient initially presented to the hospital with a chief complaint of coughing and mild shortness of breath. The patient was found to be positive for influenza A. The patient currently denies any chest pain or pressure. He denies any shortness of breath. The patient went into atrial flutter VR. He was started on IV heparin and IV Cardizem. The patient does not have a history of atrial flutter or atrial fibrillation. He has subsequently converted to sinus mechanism and is maintaining sinus mechanism this morning at time of examination. DIAGNOSTICS: - EKG reveals atrial flutter with RVR - Chest xray minimal developing right lower lobe infiltrate may be present. Correlate for pneumonia and atelectasis Chest CTA: Negative for pulmonary embolism. Ascending aorta diameter at the level of the pulmonary artery is 4.3 cm. - Laboratory data: WBC 8.2. Hemoglobin 15.6. Platelet count 169. D-dimer 1.09. Sodium 139. Potassium 4.1. BUN 13. Creatinine 0.56. Magnesium 1.6. Troponin negative x 1. proBNP 640. - Current home cardiac medications include carvedilol 12.5 mg twice a day, losartanhydrochlorothiazide 100 mg - 12.5 mg daily, Zetia 10 mg daily, atorvastatin 80 mg daily, aspirin 81 mg daily - Echocardiogram obtained revealing ejection fraction 50 to 55%, mild tricuspid regurgitation, moderate concentric LVH, dilated aortic root measuring 4.2 cm - Cardiac catheterization history: September 2019 revealing 85% mid LAD, 99% proximal OM2, 60% mid LAD, right dominant system. Patient underwent stenting of the mid LAD and proximal OM 2 03/16 Patient is seen today in follow up. Patient went into AFib w RVR this morning. Patient denies any symptoms with this. He has been started back on cardizem gtt 10 mg/hr and coreg increased to 25 mg bid. BP 128/74. K 3.9. BUN 24, creat 0.71. HGB 15.1. TSH 0.077, normal FT4 1.14. 03/17 Yesterday afternoon, patient continued to be in atrial fibrillation mostly rate was controlled but he did have episodes jumping up to 130s and he was started on oral Cardizem. By the time he was weaned off IV Cardizem. He has been maintained on Coreg which was increased yesterday to 25 mg twice daily and patient has been maintained on Eliquis. Patient continues to be in atrial fibrillation but rate is improved at the time of evaluation. Blood pressure 119/73. WBC 13.5, hemoglobin 15.1, potassium 3.9, creatinine 0.71. 03/18 Patient remains in atrial fibrillation but rate is controlled in the 90s. He he has been maintained on Eliquis, Coreg 25 mg twice daily, Cardizem 30 mg 3 times daily. Patient has been treated for COPD exacerbation and influenza A. Blood pressure is 128/69, pulse ox 94% on room air. PHYSICAL EXAM: VITAL SIGNS: Reviewed. GENERAL: Well-developed in no acute distress. HEENT: Head is normocephalic. Pupils are equal, round. Sclerae anicteric. Mucous membranes of the mouth are moist. Neck supple. No JVD or thyromegaly LUNGS: Respirations even and unlabored. Lungs essentially clear to auscultation bilaterally. HEART: Irregular rate and rhythm. S1 and S2 heard. ABDOMEN: Soft. Nondistended. Nontender. EXTREMITIES: Normal range of motion. No clubbing or cyanosis. Peripheral pulses intact. No lower extremity edema NEUROLOGIC: Awake and alert. Oriented x 3. ASSESSMENT: Acute influenza A New onset typical atrial flutter with RVR, paroxysmal atrial fibrillation currently rate controlled Coronary artery disease with previous stenting Hypertension Hyperlipidemia Morbid obesity: BMI 49.2 PLAN: Continue Eliquis 5 mg twice a day, carvedilol 25 mg twice a day Continue Cardizem and transition to 120 mg CD daily Patient is cleared for discharge from cardiology May follow-up with Dr. Hernandez as scheduled. Nurse practitioner note has been reviewed by physician. Signing provider agrees with the documented findings, assessment, and plan of care documented by [employer] as a scribe. Objective - Vital Signs Vital signs: Vital Signs Temp 96.1 F L 03/18/23 08:03 Pulse 86 03/18/23 08:51 Resp 18 03/18/23 08:03 BP 128/69 03/18/23 08:03 Pulse Ox 94 L 03/18/23 08:03 FiO2 Intake & Output 03/17/23 03/18/23 03/18/23 18:59 06:59 18:59 Intake Total 540 118 Balance 540 118 Intake: Oral 540 118 Other: Voiding Method Toilet Toilet Toilet # Voids 1 3 - Labs CBC & Chem 7: 03/18/23 08:09 03/18/23 08:09 Labs: Abnormal Lab Results - Last 24 Hours (Table) 03/18/23 03/18/23 Range/Units 08:09 08:09 WBC 11.4 H (3.8-10.6) k/uL Potassium 3.4 L (3.5-5.1) mmol/L Carbon Dioxide 31 H (22-30) mmol/L BUN 24 H (9-20) mg/dL Glucose 191 H (74-99) mg/dL
--- NOTE | 2023-03-18 12:42 | P.PN ---
Subjective Progress Note Date: 03/18/23 Principal diagnosis: Influenza A, atrial flutter. Is a 62-year-old white male with history of hypertension, coronary artery disease and previous PCI of the LAD. Also had stent of the obtuse marginal branch #2 patient also had previous sleeve gastrectomy back in 2013, patient was seen in the ER with 2 days history of low-grade fever, cough, flulike illness, and he was noted to have O2 saturation about 88% on room air. Patient was sent to the ER, and chest x-ray initially questioned developing infiltrate in the right lower lobe but since his D-dimer came back elevated patient had a CT angiogram of the chest showed no evidence of pulmonary embolism and no evidence of pneumonia. While in the ER, patient was noted to have atrial fibrillation/flutter with RVR which is a new finding. Hence patient was admitted and this consult was initiated. Today the patient is feeling better, does not seem to be in any distress,BNP level is normal, patient tested positive for influenza A by PCR. Patient was seen by cardiology on consultation, and felt that this is a new onset atrial flutter with RVR, patient was initially placed on IV Cardizem, and on heparin, after evaluation by cardiology today, both were discontinued, patient started on Eliquis 5 mg twice daily, and incre ased Coreg to 12.5 mg twice daily. Thyroid testing was initiated.Pulmonary slater, patient is feeling better however he is on 3 L nasal cannula and O2 sats is 94% patient does not seem to be in any distress. Patient has been a smoker over the years, he smokes mostly cigars. He was smoking cigars until few days ago labs showed relatively normal CBC and normal basic metabolic profile normal renal profile, And normal thyroid profile. Progress note dated March 16, 2023. This is a 62-year-old male who was seen by my partner yesterday in consultation. The patient has a history of hypertension, and coronary artery disease. The patient was admitted with a diagnosis of acute hypoxemic respiratory failure, secondary to influenza A tracheobronchitis, and COPD exacerbation, as well as atrial flutter with RVR. Currently, the patient is resting comfortably in room 355. His Solu-Medrol will be converted to prednisone 30 mg a day. He continues on Tamiflu, and updraft treatments. His procalcitonin level was normal. The patient is on room air. He is not receiving any IV fluids. Sitting in a chair, next to his hospital bed. White count 13.5, hemoglobin 15.1, hematocrit 47.5, platelet count 181,000. Sodium 139, potassium 3.9, chlorides 101, CO2 30, BUN 24, and creatinine 0.71. Chest x-ray shows a possible developing right lower lobe infiltrate. CT angiogram was negative for PE. No mention of an infiltrate on the CT angiogram. Progress note dated March 17, 2023. This is a 62-year-old male seen in room 355. The patient was diagnosed as having influenza A, as well as atrial fibrillation with RVR. The patient is currently on room air. He is not receiving any IV fluids. In addition, the patient was diagnosed as having COPD exacerbation. According to the patient, he states that his primary care physician told him he would be discharged tomorrow. No new labs today. Labs from March 16 were reviewed. Microbiologic testing is negative or pending. No recent chest x-ray. Progress note dated March 18, 2023. 62-year-old male seen again in room 355. The patient was initially admitted with a diagnosis of influenza A, as well as atrial fibrillation/flutter, with RVR. He is currently on room air. He is not receiving any IV fluids. The patient is hoping to be discharged soon. Laboratory data includes a white count 11.4, hemoglobin 16.4, hematocrit 50.8, and a platelet count of 197,000. Sodium 140, potassium 3.4, chloride 100, CO2 31, BUN 24, creatinine 0.76. Glucose is 191. Albumin 3.5. Objective - Vital Signs Vital signs: Vital Signs Temp 96.1 F L 03/18/23 08:03 Pulse 86 03/18/23 08:51 Resp 18 03/18/23 08:03 BP 128/69 03/18/23 08:03 Pulse Ox 94 L 03/18/23 08:03 FiO2 Intake & Output 03/17/23 03/18/23 03/18/23 18:59 06:59 18:59 Intake Total 540 118 Balance 540 118 Intake: Oral 540 118 Other: Voiding Method Toilet Toilet Toilet # Voids 1 3 - Exam No acute distress, oriented 3. No respiratory distress, conversational dyspnea, or use of accessory muscles. HEENT examination is grossly unremarkable. Mucous membranes are moist. No oral lesions. Neck supple. Full range of motion. No adenopathy thyromegaly or neck vein distention. Cardiovascular examination reveals regular rhythm rate. S1-S2 normal. No S3 or S4. No discernible murmur noted. Heart rate 80 bpm. Lungs reveal mild scattered rhonchi. No wheezes. No crackles. Room air saturation 96 %. Breath sounds are equal bilaterally. Abdomen soft bowel sounds are heard. No masses or tenderness. Extremities are intact. No cyanosis clubbing or edema. Skin is without rash or lesion. Neurologic examination is brief but nonfocal. - Labs CBC & Chem 7: 03/18/23 08:09 03/18/23 08:09 Labs: Abnormal Lab Results - Last 24 Hours (Table) 03/18/23 03/18/23 Range/Units 08:09 08:09 WBC 11.4 H (3.8-10.6) k/uL Potassium 3.4 L (3.5-5.1) mmol/L Carbon Dioxide 31 H (22-30) mmol/L BUN 24 H (9-20) mg/dL Glucose 191 H (74-99) mg/dL Assessment and Plan Assessment: Acute hypoxemic respiratory failure, multifactorial. Acute influenza A tracheobronchitis. Acute COPD exacerbation. New onset atrial flutter with RVR. History of underlying coronary artery disease. Morbid obesity. Degenerative joint disease. Benign essential hypertension. Hyperlipidemia. Plan: Plan dated March 16, 2023. The patient appears to be doing much better. His procalcitonin level was normal. His Solu-Medrol will be converted to prednisone, 30 mg a day. He is continuing on Tamiflu, 75 mg twice a day for 5 days. He is also on updrafts. Currently, the patient is not on any supplemental oxygen, and not receiving any IV fluids. Labs, x-rays, and medications are all reviewed. The patient appears to be doing much better, and we will continue to follow the patient, and make recommendations along the way. Plan dated March 17, 2023. Currently, the patient appears to be relatively stable. The patient is curren tly on room air. He is not receiving any IV fluids. For his COPD, he is on albuterol sulfate, ipratropium bromide, and budesonide. In addition, the patient is on prednisone 30 mg a day, and is completing his Tamiflu, 75 mg twice a day for 5 days. The patient states that his breathing is stable. Labs x-rays and medications are all reviewed. The patient will likely be discharged in the near future. No additional recommendations are made. Prognosis is guarded. His procalcitonin level was normal. Plan dated March 18, 2023. The patient is very stable. The patient is on room air. He is not having any shortness of breath, chest tightness, cough, wheezing, or phlegm production. The patient is not receiving any supplemental fluids. The patient was admitted with a diagnosis of influenza A infection, as well as atrial flutter, with RVR. The patient is doing very well, from both the pulmonary and cardiovascular standpoint. The patient is being evaluated for possible discharge. Labs, x- rays, and medications are all reviewed. Prognosis is guarded. Time with Patient: Less than 30
== END 2023-03-18 13:18 | disposition home or self-care (01) | DRG 291 ==
LOC: EC 10:43 → 3SCARD 14:35 → OBSVTOIN 03-16 07:17
PROVIDERS: ADMIT Internal Medicine; ATTEND Internal Medicine
DX: I11.0 Hypertensive heart disease with heart failure (principal); I50.31 Acute diastolic (congestive) heart failure; J96.01 Acute respiratory failure with hypoxia; I48.3 Typical atrial flutter; J44.0 Chronic obstructive pulmonary disease with (acute) lower respiratory infection; J44.1 Chronic obstructive pulmonary disease with (acute) exacerbation; Z68.42 Body mass index [BMI] 45.0-49.9, adult; Z79.01 Long term (current) use of anticoagulants; E10.9 Type 1 diabetes mellitus without complications; E66.01 Morbid (severe) obesity due to excess calories; I25.2 Old myocardial infarction; I48.0 Paroxysmal atrial fibrillation; N40.0 Benign prostatic hyperplasia without lower urinary tract symptoms; F17.210 Nicotine dependence, cigarettes, uncomplicated; I25.10 Atherosclerotic heart disease of native coronary artery without angina pectoris; N43.3 Hydrocele, unspecified; I07.1 Rheumatic tricuspid insufficiency; M19.90 Unspecified osteoarthritis, unspecified site; E78.2 Mixed hyperlipidemia; G47.33 Obstructive sleep apnea (adult) (pediatric); J10.1 Influenza due to other identified influenza virus with other respiratory manifestations; J20.9 Acute bronchitis, unspecified; R79.1 Abnormal coagulation profile; Z79.899 Other long term (current) drug therapy; Z79.82 Long term (current) use of aspirin; Z83.3 Family history of diabetes mellitus; Z96.41 Presence of insulin pump (external) (internal); Z79.4 Long term (current) use of insulin; Z95.5 Presence of coronary angioplasty implant and graft; Z96.653 Presence of artificial knee joint, bilateral; Z98.84 Bariatric surgery status; Z11.52 Encounter for screening for COVID-19; Z28.21 Immunization not carried out because of patient refusal
CPT/HCPCS: 36415; 71046; 71275; 80053; 83605; 83735; 83880; 84145; 84439; 84443; 84484; 85025; 85379; 85610; 85730; 87636; 93005; 93306; 94640; 94760; 96365; 96366; 96368; 96375; 99285; 99406

== ENCOUNTER → 2023-05-25 | Outpatient (CLI) | payer BC ==
--- NOTE | 2023-05-28 15:27 | P.PCN ---
Description of Procedure: CLINICAL: A home sleep apnea test has been done for confirmation of possible obstructive sleep apnea-hypopnea syndrome. DESCRIPTION OF PROCEDURE: RESULTS: Recording time was 8 hours 13 minutes. Evaluation time was 7 hours 30 minutes. Evaluation time is sufficient for making conclusion about results of the test. Raw data of sleep recording has been reviewed and is adequate. Respiratory channel showed 47 apneas and 222 hypopneas. Apnea-hypopnea index was 35.8 per hour, which included obstructive apnea index 1.3, central apnea index 3.5, mixed apnea index 0.4. Pulse rate in the range between minimum 49, maximum 140, average 88 by computer calculation. Lowest desaturation was 61%. IMPRESSION: 1. Obstructive Sleep Apnea Hypopnea Syndrome in severe range with severe oxygen desaturation. Please see other impressions from consultation. PLAN: 1.The patient should have PAP titration for correction of respiratory abnormalli ties during sleep. 2. Sleep hygiene with regular time in bed for at least 8 hours. 3. Watching weight. 4. No driving if feeling any sleepiness. Thank you very much for allowing me to participate in the management of your patient. Sincerely, Camacho Mccarty MD, PhD, FAASM Diplomat of [employer] Sleep Medicine Board of [employer] Automation Consultant of [facility] [place]
== END ==
LOC: 3 N SLEEP 10:52
PROVIDERS: ATTEND Internal Medicine
DX: G47.33 Obstructive sleep apnea (adult) (pediatric) (principal); G47.36 Sleep related hypoventilation in conditions classified elsewhere

== ENCOUNTER 2023-07-01 07:22 | Day surgery (SDC) | payer BC ==
[2023-06-29 15:02] VITALS: BMI 52.2
[2023-07-01] MEDS: SODIUM CHLORIDE 0.9% 1,000 ML IV SCH (07:43)
[2023-07-01 07:57] LABS: Glucose,Whole Blood 101 mg/dL (70-110)
[2023-07-01] MEDS: BENZOCAINE SPRAY 1 CAN TOPICAL ONE (08:32)
[2023-07-01] MEDS ORDERED: PROPOFOL 10 MG/ML 20 ML VIAL IV ONE (08:47)
[2023-07-01] MEDS ORDERED: LIDOCAINE 1% INJ 10MG/ML (20 ML MDV) ONE (08:47)
--- NOTE | 2023-07-01 09:07 | P.PCN ---
Date of Procedure: 07/01/23 Description of Procedure: Indication: Atrial fibrillation Procedure Description: After explaining the procedure to the patient, it's risk and complications, blood pressure, heart rate and O2 saturation were monitored. The throat was sprayed with Cetacaine. Patient received sedation per anesthesia department . The probe was introduced into the esophagus without difficulty. Images were obtained. Following that, the probe was removed. There was no immediate complication. Findings: Left atrial size is mildly dilated, left atrial appendage is normal. Left ventricle systolic function is borderline normal with ejection fraction of 50 to 55%. The aortic, mitral and tricuspid valves appear to be normal. Pulmonic valve is normal. Descending thoracic aorta revealed a nodular calcification. No pericardial effusion was noted. Contrast bubble study revealed no shunting across the interatrial septum. Doppler: Pulse wave and color Doppler were obtained, and revealed mild to moderate mitral with mild tricuspid regurgitation. There was no shunting across the interatrial septum. Conclusion: 1. Mildly dilated left atrium with normal appearance of the left atrial appendage 2. Left ventricle systolic function is borderline normal 3. Mild to moderate mitral with mild tricuspid regurgitation 4. No shunting across the interatrial septum 5. No pericardial fusion Cardioversion: After obtaining SAUNDRA and sedated state a synchronized biphasic cardioversion using 150 J was no successful in restoring sinus mechanism subsequently a 200 J was successful in restoring sinus mechanism. The patient reverted back to atrial fibrillation about 5 minutes after. There was no immediate complications.
[2023-07-01] MEDS: SODIUM CHLORIDE 0.9% 1,000 ML IV ONE (09:24)
[2023-07-01 09:32] LABS: Glucose,Whole Blood 102 mg/dL (70-110)
[2023-07-01 09:54] VITALS: TEMP 97.8
[2023-07-01 10:51] VITALS: BP 119/55; PULSE 76; RESP 13
[2023-07-01] MEDS ORDERED: carvediloL 12.5 MG TAB PO SCH (17:30)
[2023-07-01] MEDS ORDERED: APIXABAN 5 MG TAB PO SCH (21:00)
[2023-07-02] MEDS ORDERED: hydroCHLOROthiazide 12.5 MG CAP PO SCH (09:00)
[2023-07-02] MEDS ORDERED: ATORVASTATIN 80 MG TAB PO SCH (09:00)
[2023-07-02] MEDS ORDERED: LOSARTAN 50 MG TAB PO SCH (09:00)
[2023-07-02] MEDS ORDERED: DILTIAZEM CD 120 MG CAP.ER.24H PO SCH (09:00)
[2023-07-02] MEDS ORDERED: EZETIMIBE 10 MG TAB PO SCH (09:00)
== END 2023-07-01 10:30 | disposition home or self-care (01) ==
LOC: OR 07:22
PROVIDERS: ATTEND Internal Medicine Interventional Cardiology
DX: I08.1 Rheumatic disorders of both mitral and tricuspid valves (principal); I48.0 Paroxysmal atrial fibrillation; I25.2 Old myocardial infarction; I10 Essential (primary) hypertension; E78.5 Hyperlipidemia, unspecified; G47.33 Obstructive sleep apnea (adult) (pediatric); E11.9 Type 2 diabetes mellitus without complications; Z95.5 Presence of coronary angioplasty implant and graft; Z79.01 Long term (current) use of anticoagulants; Z79.899 Other long term (current) drug therapy; Z79.84 Long term (current) use of oral hypoglycemic drugs
CPT/HCPCS: 93312; 93320; 93325; 92960; J2001; J2704

== ENCOUNTER 2023-07-28 19:49 | Outpatient (CLI) | payer BC ==
--- NOTE | 2023-07-29 12:02 | P.PCN ---
Description of Procedure: CLINICAL: Titration with positive air pressure has been done for correction of respiratory abnormalities during sleep. DESCRIPTION OF PROCEDURE: The standard montage for clinical polysomnography included the electroencephalogram, the electrocardiogram, the mentalis surface electromyography and Lead II cardiography. The respiratory battery consisted of measurements of nasal /buccal air flow, pressure transducer measurements from the nose, thoracic and /or abdominal effort and intercostal surface electromyography. Video monitoring has been done to check for any parasomnia events. Nocturnal oxyhemoglobin saturations were obtained by finger oximetry. Step-slater titration with positive airway pressure was utilized to control respiratory events. Raw data of sleep recording has been reviewed and is adequate. RESULTS: Sleep efficiency was extremely short 58.5%. Latency to sleep onset was significantly prolonged to 35.5 minutes.]. Sleep architecture showed stage N1 was short 2.7%, Delta sleep was absent 0%, REM sleep was extremely short 5.4%. Heart rate was minimum 73 BPM, maximum 90 BPM, average 81 BPM. EMG showed 9.4 periodic limb movements per hour with 0 micriarousals per hour. PAP titration have been done with CPAP up to the pressure 10 cm H2O. Patient had problems with CPAP, switched to BPAP. BPAP titrated up to 24/20 cm H2O. The best results were at the pressure 20/16 cm H2O. Apnea hypopnea index reduced to 14.8. IMPRESSION: 1. Severe original apnea hypopnea index obstructive sleep apnea hypopnea syndrome 35.8 with oxygen desaturation to 61% improved on treatment with BiPAP. 2. No significant periodic limb movements have been documented. Please see other impressions from consultation. PLAN: 1. The patient will have treatment with positive air pressure equipment with the level of pressure AutoBPAP with maximal inspiratory pressure 24, minimal expiratory pressure 10, pressure support 4 cm H2O and should use it every night for the whole night. 2. Watching and losing weight. 3. Sleep hygiene with regular time in bed for at least 8 hours. 4. No driving if feeling any sleepiness. 5. I will see the patient for follow up visit to explain the results of the test, recommendations, check compliance with treatment and make any necessary adjustment related to mask fitting, pressure and humidification. Thank you very much for allowing me to participate in the management of your patient. Sincerely, Camacho Mccarty MD, PhD, FAASM Diplomat of [employer] Sleep Medicine Board of [employer] Sign Erector of [facility] [place]
== END 2023-07-29 05:30 | disposition home or self-care (01) ==
LOC: 3 N SLEEP 19:49
PROVIDERS: ATTEND Internal Medicine
DX: G47.33 Obstructive sleep apnea (adult) (pediatric) (principal); G47.36 Sleep related hypoventilation in conditions classified elsewhere
CPT/HCPCS: 95811

== ENCOUNTER 2023-09-03 09:36 | Inpatient (IN) | payer BC ==
[2023-09-03 10:33] LABS: Basophils % (A) 0 %; Eosinophils # (A) 0.2 k/uL (0-0.7); Eosinophils % (A) 1 %; HCT 43.2 % (39.0-53.0); HGB 13.8 gm/dL (13.0-17.5); Hypochromasia Slight; Lymphocytes # (A) 1.2 k/uL (1.0-4.8); Lymphocytes % (A) 8 %; MCHC 32.1 g/dL (31.0-37.0); MCV 90.4 fL (80.0-100.0); Mean Platelet Volume 7.9; Monocytes # (A) 0.8 k/uL (0-1.0); Monocytes % (A) 5 %; Neutrophils # (A) 12.5 k/uL (1.3-7.7); Neutrophils % (A) 84 %; Platelet Count 193 k/uL (150-450); RBC 4.77 m/uL (4.30-5.90); RDW 15.6 % (11.5-15.5); WBC 14.8 k/uL (3.8-10.6)
[2023-09-03 10:46] LABS: ALT 18 U/L (4-49); AST 24 U/L (17-59); African American GFR (CKD) >90 (>60 ml/min/1.73 sqM); Albumin 3.8 g/dL (3.5-5.0); Alkaline Phosphatase 110 U/L (38-126); Anion Gap 6 mmol/L; Blood Urea Nitrogen 22 mg/dL (9-20); Carbon Dioxide 31 mmol/L (22-30); Chloride 106 mmol/L (98-107); Glucose 117 mg/dL (74-99); INR 1.1 (<1.2); Non-African American GFR(CKD) >90 (>60 ml/min/1.73 sqM); Partial Thromboplastin Time 24.3 sec (22.0-30.0); Potassium 3.7 mmol/L (3.5-5.1); Prothrombin Time 11.5 sec (10.0-12.5); Sodium 143 mmol/L (137-145); Total Bilirubin 1.5 mg/dL (0.2-1.3); Total Protein 6.8 g/dL (6.3-8.2)
--- NOTE | 2023-09-03 10:48 | XR ---
EXAMINATION TYPE: XR chest 2V DATE OF EXAM: 09/03/2023 10:43 AM COMPARISON: Chest radiographs from 03/14/2023, CTA chest 03/14/2023. TECHNIQUE: XR chest 2V Frontal and lateral views of the chest. CLINICAL INDICATION:Male, 63 years old with history of difficulty breathing; FINDINGS: Lungs/Pleura: There is no evidence of pleural effusion, focal consolidation, or pneumothorax. Pulmonary vascularity: Unremarkable. Heart/mediastinum: Cardiomediastinal silhouette is unremarkable. Musculoskeletal: No acute osseous pathology. Multilevel degenerative changes of the thoracic spine. IMPRESSION: No acute cardiopulmonary disease/process.
[2023-09-03 10:54] LABS: NT-Pro-B-Type Natriuretic Pept 1640 pg/mL
[2023-09-03] MEDS: FUROSEMIDE 10 MG/ML 10 ML VIAL IV STA (12:00)
--- NOTE | 2023-09-03 12:19 | ED ---
SOB HPI - General Chief Complaint: Shortness of Breath Stated Complaint: SOB Time Seen by Provider: 09/03/23 09:49 Source: patient Mode of arrival: ambulatory Limitations: no limitations - History of Present Illness Initial Comments: 63-year-old male who presents emergency department complaining of shortness of breath. Patient has a history of A-fib, coronary artery disease, CHF and COPD. Patient also has a history of sleep apnea which is currently untreated. States that since 5 AM this morning the patient has been short of breath. He saw Dr. العلي in office who told him that he had water in his lungs. He thought he had to be admitted to the hospital for IV diuresis. Patient does take torsemide 40 mg daily without any missed doses. Denies any weight gain or lower extremity edema. Patient does not wear oxygen. He is also told he has a history of COPD. He used his inhaler 3 times today without any improvement in his symptoms. He is supposed to wear BIPAP. States that today was his appointment to get fitted however was so short of breath he could not proceed with it. He denies fevers. Does admit to a nonproductive cough. No other alleviating, precipitating modifying factors - Related Data Home Medications Medication Instructions Recorded Confirmed Ezetimibe [Zetia] 10 mg PO DAILY 06/11/22 09/03/23 Losartan/Hydrochlorothiazide 1 tab PO DAILY 11/13/22 09/03/23 [Hyzaar 100-12.5 Tablet] Albuterol Sulfate [Albuterol 1 puff INHALATION RT-Q4H PRN 03/14/23 09/03/23 Sulfate Hfa] Atorvastatin [Lipitor] 80 mg PO DAILY 03/14/23 09/03/23 Nitroglycerin Sl Tabs [Nitrostat] 0.4 mg SL Q5M PRN 03/14/23 09/03/23 Aspirin 81 mg PO DAILY 06/29/23 09/03/23 dilTIAZem HCL [Cardizem CD] 120 mg PO DAILY 06/29/23 09/03/23 Potassium Chloride ER [K-Dur 20] 20 meq PO DAILY 09/03/23 09/03/23 Torsemide [Demadex] 40 mg PO DAILY 09/03/23 09/03/23 carvediloL [Coreg] 25 mg PO BID 09/03/23 09/03/23 Previous Rx's Medication Instructions Recorded Apixaban [Eliquis] 5 mg PO BID #180 tab 03/18/23 Allergies Allergy/AdvReac Type Severity Reaction Status Date / Time No Known Allergies Allergy Verified 09/03/23 11:34 Review of Systems ROS Statement: Those systems with pertinent positive or pertinent negative responses have been documented in the HPI. ROS Other: All systems not noted in ROS Statement are negative. Past Medical History Past Medical History: Atrial Fibrillation, Coronary Artery Disease (CAD), Diabetes Mellitus, Hyperlipidemia, Hypertension, Myocardial Infarction (NM), Osteoarthritis (OA), Sleep Apnea/CPAP/BIPAP Additional Past Medical History / Comment(s): "I thought I had pneumonia and they did an EKG at [facility] and said I was in A-Fib 04/11"diet controlled diabetes "Borderline diabetes." "I have severe sleep apnea and I have to have another test next month."-"I have not been put on a C-PAP.". difficulty swallow-has had issue for years per pt. Patient states he is not Diabetic Last Myocardial Infarction Date:: 11/05 History of Any Multi-Drug Resistant Organisms: None Reported Past Surgical History: Appendectomy, Bariatric Surgery, Heart Catheterization, Heart Catheterization With Stent, Hernia Repair Additional Past Surgical History / Comment(s): gastric sleeve 2015; stents X2 placed October 2019, right total knee and lt knee replacement, Past Anesthesia/Blood Transfusion Reactions: No Reported Reaction Additional Past Anesthesia/Blood Transfusion Reaction / Comment(s): hard for patient to lay flat on back Date of Last Stent Placement:: 10/2019 Past Psychological History: No Psychological Hx Reported Smoking Status: Former smoker Past Alcohol Use History: None Reported Past Drug Use History: None Reported - Past Family History Mother Family Medical History: Cancer Additional Family Medical History / Comment(s): throat cancer. General Exam Limitations: no limitations General appearance: alert, in no apparent distress Head exam: Present: atraumatic, normocephalic, normal inspection Eye exam: Present: normal appearance, PERRL, EOMI. Absent: scleral icterus, conjunctival injection, periorbital swelling ENT exam: Present: normal exam, mucous membranes moist Neck exam: Present: normal inspection. Absent: tenderness, meningismus, lymphadenopathy Respiratory exam: Present: rales. Absent: respiratory distress, wheezes, rhonchi, stridor Cardiovascular Exam: Present: regular rate, normal rhythm, normal heart sounds. Absent: systolic murmur, diastolic murmur, rubs, gallop, clicks GI/Abdominal exam: Present: soft, normal bowel sounds. Absent: distended, tenderness, guarding, rebound, rigid Extremities exam: Present: normal inspection, full ROM, normal capillary refill. Absent: tenderness, pedal edema, joint swelling, calf tenderness Back exam: Present: normal inspection Neurological exam: Present: alert, oriented X3, CN II-XII intact Psychiatric exam: Present: normal affect, normal mood Skin exam: Present: warm, dry, intact, normal color. Absent: rash Course Vital Signs 09/03/23 09/03/23 09/03/23 09:41 10:11 11:22 Temperature 97.7 F Pulse Rate 74 76 Respiratory 18 20 Rate Blood Pressure 118/78 122/66 O2 Sat by Pulse 92 L 95 95 Oximetry 09/03/23 12:00 Temperature Pulse Rate 80 Respiratory 18 Rate Blood Pressure 124/71 O2 Sat by Pulse 96 Oximetry Medical Decision Making - Medical Decision Making Was pt. sent in by a medical professional or institution (, PA, CILNICAL SCIENTIST, urgent care, hospital, or fdc...) When possible be specific @ -Patient sent in by Dr. العلي Did you speak to anyone other than the patient for history (EMS, parent, family, police, friend...)? What history was obtained from this source @ -Dr. العلي Did you review nursing and triage notes (agree or disagree)? Why? @ -I reviewed and agree with nursing and triage notes Were old charts reviewed (outside hosp., previous admission, EMS record, old EKG, old radiological studies, urgent care reports/EKG's, fdc records)? Report findings @ -I reviewed patient's echo from February where he had a normal EF Differential Diagnosis (chest pain, altered mental status, abdominal pain women, abdominal pain men, vaginal bleeding, weakness, fever, dyspnea, syncope, headache, dizziness, GI bleed, back pain, seizure, CVA, palpatations, mental health, musculoskeletal)? @ -Differential Dyspnea: Coronary syndrome, arrhythmia, tamponade, asthma, COPD, pulmonary embolism, pneumonia, pneumothorax, pulmonary effusion, anaphylaxis, diabetic ketoacidosis, flailed chest, pulmonary contusion, diaphragmatic rupture, anemia, neuromuscu lar, this is not meant to be an all-inclusive list. EKG interpreted by me (3pts min.). @ -Yes and demonstrates A-fib with a rate of 83. QRS 106. QTc of 424. No acute ST segment elevations or depressions X-rays interpreted by me (1pt min.). @ -Yes and demonstrates no acute process CT interpreted by me (1pt min.). @ -None done U/S interpreted by me (1pt. min.). @ -None done What testing was considered but not performed or refused? (CT, X-rays, U/S, labs)? Why? @ -None What meds were considered but not given or refused? Why? @ -None Did you discuss the management of the patient with other professionals (professionals i.e. , PA, CILNICAL SCIENTIST, lab, RT, psych nurse, home health care social worker, ornamental metal erector, teacher, enforcement safety officer, case supervisor)? Give summary @ -Discussed case with Dr. العلي who will admit patient Was smoking cessation discussed for >3mins.? @ -No Was critical care preformed (if so, how long)? @ -Yes, 35 minutes for hypoxia Were there social determinants of health that impacted care today? How? (Homelessness, low income, unemployed, alcoholism, drug addiction, transportation, low edu. Level, literacy, decrease access to med. care, senior care, rehab)? @ -No Was there de-escalation of care discussed even if they declined (Discuss DNR or withdrawal of care, Hospice)? DNR status @ -No What co-morbidities impacted this encounter? (DM, HTN, Smoking, COPD, CAD, Cancer, CVA, ARF, Chemo, Hep., AIDS, mental health diagnosis, sleep apnea, morbid obesity)? @ -COPD, sleep apnea, CHF Was patient admitted / discharged? Hospital course, mention meds given and route, prescriptions, significant lab abnormalities, going to OR and other pertinent info. @ -Upon arrival patient seen and evaluated in room 24. Thorough history and physical exam was performed. IV access was established. Laboratory studies were conducted. Chest x-ray was performed. Patient does have elevated BNP with audible rails. He is initiated on IV Lasix. Called and spoke with Dr. العلي who was agreeable to admit the patient. Recommends steroids and breathing treatments. Recommending cardiology consultation. Patient was agreeable to this patient. he was admitted to the floor in stable condition on 2 L of oxygen Undiagnosed new problem with uncertain prognosis? @ -No Drug Therapy requiring intensive monitoring for toxicity (Heparin, Nitro, Insulin, Cardizem)? @ -No Were any procedures done? @ -No Diagnosis/symptom? @ -Acute hypoxic respiratory failure, acute CHF, acute COPD Acute, or Chronic, or Acute on Chronic? @ -Acute Uncomplicated (without systemic symptoms) or Complicated (systemic symptoms)? @ -Complicated Side effects of treatment? @ -No Exacerbation, Progression, or Severe Exacerbation? @ -Yes Poses a threat to life or bodily function? How? (Chest pain, USA, NM, pneumonia, PE, COPD, DKA, ARF, appy, cholecystitis, CVA, Diverticulitis, Homicidal, Suicidal, threat to staff... and all critical care pts) @ -Yes as patient is hypoxic - Lab Data Result diagrams: 09/03/23 10:24 09/03/23 10:24 Lab Results 09/03/23 09/03/23 09/03/23 Range/Units 10:24 10:24 10:24 WBC 14.8 H (3.8-10.6) k/uL RBC 4.77 (4.30-5.90) m/uL Hgb 13.8 (13.0-17.5) gm/dL Hct 43.2 (39.0-53.0) % MCV 90.4 (80.0-100.0) fL MCH 29.0 (25.0-35.0) pg MCHC 32.1 (31.0-37.0) g/dL RDW 15.6 H (11.5-15.5) % Plt Count 193 (150-450) k/uL MPV 7.9 Neutrophils % 84 % Lymphocytes % 8 % Monocytes % 5 % Eosinophils % 1 % Basophils % 0 % Neutrophils # 12.5 H (1.3-7.7) k/uL Lymphocytes # 1.2 (1.0-4.8) k/uL Monocytes # 0.8 (0-1.0) k/uL Eosinophils # 0.2 (0-0.7) k/uL Basophils # 0.0 (0-0.2) k/uL Hypochromasia Slight PT 11.5 (10.0-12.5) sec INR 1.1 (<1.2) APTT 24.3 (22.0-30.0) sec Sodium 143 (137-145) mmol/L Potassium 3.7 (3.5-5.1) mmol/L Chloride 106 (98-107) mmol/L Carbon Dioxide 31 H (22-30) mmol/L Anion Gap 6 mmol/L BUN 22 H (9-20) mg/dL Creatinine 0.76 (0.66-1.25) mg/dL Est GFR (CKD-EPI)AfAm >90 (>60 ml/min/1.73 sqM) Est GFR (CKD-EPI)NonAf >90 (>60 ml/min/1.73 sqM) Glucose 117 H (74-99) mg/dL Calcium 9.0 (8.4-10.2) mg/dL Total Bilirubin 1.5 H (0.2-1.3) mg/dL AST 24 (17-59) U/L ALT 18 (4-49) U/L Alkaline Phosphatase 110 (38-126) U/L Troponin I (0.000-0.034) ng/mL NT-Pro-B Natriuret Pep 1640 pg/mL Total Protein 6.8 (6.3-8.2) g/dL Albumin 3.8 (3.5-5.0) g/dL 09/03/23 Range/Units 10:24 WBC (3.8-10.6) k/uL RBC (4.30-5.90) m/uL Hgb (13.0-17.5) gm/dL Hct (39.0-53.0) % MCV (80.0-100.0) fL MCH (25.0-35.0) pg MCHC (31.0-37.0) g/dL RDW (11.5-15.5) % Plt Count (150-450) k/uL MPV Neutrophils % % Lymphocytes % % Monocytes % % Eosinophils % % Basophils % % Neutrophils # (1.3-7.7) k/uL Lymphocytes # (1.0-4.8) k/uL Monocytes # (0-1.0) k/uL Eosinophils # (0-0.7) k/uL Basophils # (0-0.2) k/uL Hypochromasia PT (10.0-12.5) sec INR (<1.2) APTT (22.0-30.0) sec Sodium (137-145) mmol/L Potassium (3.5-5.1) mmol/L Chloride (98-107) mmol/L Carbon Dioxide (22-30) mmol/L Anion Gap mmol/L BUN (9-20) mg/dL Creatinine (0.66-1.25) mg/dL Est GFR (CKD-EPI)AfAm (>60 ml/min/1.73 sqM) Est GFR (CKD-EPI)NonAf (>60 ml/min/1.73 sqM) Glucose (74-99) mg/dL Calcium (8.4-10.2) mg/dL Total Bilirubin (0.2-1.3) mg/dL AST (17-59) U/L ALT (4-49) U/L Alkaline Phosphatase (38-126) U/L Troponin I <0.012 (0.000-0.034) ng/mL NT-Pro-B Natriuret Pep pg/mL Total Protein (6.3-8.2) g/dL Albumin (3.5-5.0) g/dL Disposition Clinical Impression: COPD (chronic obstructive pulmonary disease), CHF (congestive heart failure), Hypoxia Disposition: ADMITTED IP TO THIS [facility] Condition: Serious Is patient prescribed a controlled substance at d/c from ED?: No Time of Disposition: 12:27 Decision to Admit Reason: Admit from EC Decision Date: 09/03/23 Decision Time: 12:27
[2023-09-03] MEDS ORDERED: NALOXONE 0.4 MG/ML 1 ML VIAL IV PRN (12:27)
[2023-09-03] MEDS: methylPREDNISolone SOD SUCCI 125 MG/2 ML VIAL IV STA (13:07)
[2023-09-03] MEDS ORDERED: ALBUTEROL NEBULIZED 2.5 MG/3 ML INHALATION PRN (13:22)
[2023-09-03] MEDS ORDERED: NITROGLYCERIN SL TABS 0.4 MG TAB SUBLINGUAL PRN (13:22)
[2023-09-03] MEDS: IPRATROPIUM-ALBUTEROL 3 ML NEB INHALATION SCH (14:56)
[2023-09-03] MEDS: FUROSEMIDE 10 MG/ML 10 ML VIAL IV SCH (16:46)
[2023-09-03 17:43] LABS: Glucose,Whole Blood 130 mg/dL (70-110)
[2023-09-03] MEDS: carvediloL 12.5 MG TAB PO SCH (17:45)
[2023-09-03] MEDS: INSULIN ASPART (NovoLOG) 100 UNIT/ML VIAL SQ SCH (17:47)
[2023-09-03 21:27] LABS: Glucose,Whole Blood 232 mg/dL (70-110)
[2023-09-03] MEDS: APIXABAN 5 MG TAB PO SCH (22:23)
[2023-09-04 07:51] LABS: Basophils % (A) 0 %; Eosinophils % (A) 0 %; HCT 41.7 % (39.0-53.0); HGB 13.4 gm/dL (13.0-17.5); Hypochromasia Slight; Lymphocytes % (A) 7 %; MCH 29.2 pg (25.0-35.0); MCHC 32.1 g/dL (31.0-37.0); MCV 90.8 fL (80.0-100.0); Mean Platelet Volume 8.2; Monocytes # (A) 0.7 k/uL (0-1.0); Monocytes % (A) 5 %; Neutrophils # (A) 12.9 k/uL (1.3-7.7); Neutrophils % (A) 87 %; Platelet Count 197 k/uL (150-450); RBC 4.59 m/uL (4.30-5.90); RDW 15.3 % (11.5-15.5); WBC 14.8 k/uL (3.8-10.6)
[2023-09-04 08:06] LABS: ALT 16 U/L (4-49); AST 21 U/L (17-59); African American GFR (CKD) >90 (>60 ml/min/1.73 sqM); Albumin 3.5 g/dL (3.5-5.0); Alkaline Phosphatase 100 U/L (38-126); Anion Gap 5 mmol/L; Blood Urea Nitrogen 25 mg/dL (9-20); Calcium 8.7 mg/dL (8.4-10.2); Carbon Dioxide 34 mmol/L (22-30); Chloride 101 mmol/L (98-107); Glucose 112 mg/dL (74-99); Magnesium 1.8 mg/dL (1.6-2.3); Non-African American GFR(CKD) >90 (>60 ml/min/1.73 sqM); Potassium 3.2 mmol/L (3.5-5.1); Sodium 140 mmol/L (137-145); Total Bilirubin 1.5 mg/dL (0.2-1.3); Total Protein 6.4 g/dL (6.3-8.2)
[2023-09-04 08:14] LABS: Glucose,Whole Blood 128 mg/dL (70-110)
[2023-09-04] MEDS: EZETIMIBE 10 MG TAB PO SCH (08:23)
[2023-09-04] MEDS: POTASSIUM CHLORIDE ER 20 MEQ TAB.ER PO SCH (08:23)
[2023-09-04] MEDS: ASPIRIN 81 MG PO SCH (08:23)
[2023-09-04] MEDS: ATORVASTATIN 80 MG TAB PO SCH (08:23)
[2023-09-04] MEDS: hydroCHLOROthiazide 12.5 MG CAP PO SCH (08:24)
[2023-09-04] MEDS: DILTIAZEM CD 120 MG CAP.ER.24H PO SCH (08:24)
[2023-09-04] MEDS: LOSARTAN 50 MG TAB PO SCH (08:24)
[2023-09-04] MEDS: methylPREDNISolone SOD SUCCI 40 MG/ML 1 ML VIAL IV SCH (08:25)
[2023-09-04] MEDS ORDERED: NON FORMULARY DRUG (Losartan/Hydrochlorothiazide [Hyzaar 100-12.5 Tablet] 1 EACH Tablet) PO SCH (09:00)
[2023-09-04] MEDS: FUROSEMIDE 10 MG/ML 10 ML VIAL IV SCH (11:40)
[2023-09-04 12:35] LABS: Glucose,Whole Blood 112 mg/dL (70-110)
[2023-09-04] MEDS: POTASSIUM CHLORIDE ER 20 MEQ TAB.ER PO STA (15:59)
[2023-09-04 16:47] LABS: Glucose,Whole Blood 153 mg/dL (70-110)
--- NOTE | 2023-09-04 19:26 | P.CRDCN ---
History of Present Illness History of present illness: This is Dr. Valderrama dictating a consult on this patient The patient was interviewed and examined IMPRESSION / ASSESSMENT: Patient presented with shortness of breath Severe sleep apnea with an AHI of 36 with oxygen desaturation to 61% Presenting with supervisor research kennel shortness of breath, likely pickwickian syndrome Clinically while he does have diastolic heart failure, his chest x-ray failed to show any significant congestion Clinically he has chronic diastolic heart failure His blood pressure is well-controlled PLAN: This supervisor research kennel shortness of breath and awakening most likely represents pickwickian syndrome/severe obstructive sleep apnea He has received IV Lasix Tomorrow would recommend switching back to p.o. Lasix He needs his obstructive sleep apnea BiPAP mask quickly transfer tech [facility] Patient presented to the hospital with shortness of breath. He states that he has been short of breath since 5 AM in the morning He went to his primary care physician's office who diagnosed him with heart failure and sent him to the hospital He has received IV Lasix and is doing better at this time. Denies any chest discomfort no dizziness lightheadedness He is still waiting for his BiPAP mask ROS: No fever chills or rigors, no cough, phlegm or expectoration, no nausea, vomiting or diarrhea, no hematuria, dysuria, no musculoskeletal complaints, no strokes or seizures, no skin lesions. EXAMINATION: Blood pressure 120/66 mmHg pulse rate in the 80s afebrile normal respirations Heart sounds S1-S2 are normal distant Clear lungs no rhonchi no crackles Mild bilateral lower extremity edema REVIEW OF LABS, ECG & MEDICAL DATA White count 14.8 thousand, hemoglobin 13.4 Sodium 140, potassium 3.2 BUN 25 creatinine 0.76 Liver function tests are normal Past Medical History Past Medical History: Atrial Fibrillation, Coronary Artery Disease (CAD), Diabetes Mellitus, Hyperlipidemia, Hypertension, Myocardial Infarction (MA), Osteoarthritis (OA), Sleep Apnea/CPAP/BIPAP Additional Past Medical History / Comment(s): "I thought I had pneumonia and they did an EKG at office and said I was in A-Fib 04/11"diet controlled diabetes "Borderline diabetes." "I have severe sleep apnea and I have to have another test next month."-"I have not been put on a C-PAP.". difficulty swallow-has had issue for years per pt. Patient states he is not Diabetic Last Myocardial Infarction Date:: 11/05 History of Any Multi-Drug Resistant Organisms: None Reported Past Surgical History: Appendectomy, Bariatric Surgery, Heart Catheterization, Heart Catheterization With Stent, Hernia Repair Additional Past Surgical History / Comment(s): gastric sleeve 2015; stents X2 placed October 2019, right total knee and lt knee replacement, Past Anesthesia/Blood Transfusion Reactions: No Reported Reaction Additional Past Anesthesia/Blood Transfusion Reaction / Comment(s): hard for patient to lay flat on back Date of Last Stent Placement:: 10/2019 Past Psychological History: No Psychological Hx Reported Smoking Status: Former smoker Past Alcohol Use History: None Reported Additional Past Alcohol Use History / Comment(s): Started smoking in 1984, 1ppd, quit in 2023. Past Drug Use History: None Reported Additional Drug Use History / Comment(s): occasional edibles or smokes it refrain 24 hours prior to proc - Past Family History Mother Family Medical History: Cancer Additional Family Medical History / Comment(s): throat cancer. Medications and Allergies Home Medications Medication Instructions Recorded Confirmed Type Ezetimibe [Zetia] 10 mg PO DAILY 06/11/22 09/03/23 History Losartan/Hydrochlorothiazide 1 tab PO DAILY 11/13/22 09/03/23 History [Hyzaar 100-12.5 Tablet] Albuterol Sulfate [Albuterol 1 puff INHALATION RT-Q4H PRN 03/14/23 09/03/23 History Sulfate Hfa] Atorvastatin [Lipitor] 80 mg PO DAILY 03/14/23 09/03/23 History Nitroglycerin Sl Tabs [Nitrostat] 0.4 mg SL Q5M PRN 03/14/23 09/03/23 History Apixaban [Eliquis] 5 mg PO BID #180 tab 03/18/23 09/03/23 Rx Aspirin 81 mg PO DAILY 06/29/23 09/03/23 History dilTIAZem HCL [Cardizem CD] 120 mg PO DAILY 06/29/23 09/03/23 History Potassium Chloride ER [K-Dur 20] 20 meq PO DAILY 09/03/23 09/03/23 History Torsemide [Demadex] 40 mg PO DAILY 09/03/23 09/03/23 History carvediloL [Coreg] 25 mg PO BID 09/03/23 09/03/23 History Allergies Allergy/AdvReac Type Severity Reaction Status Date / Time No Known Allergies Allergy Verified 09/03/23 11:34 Physical Exam Vitals: Vital Signs Temp Pulse Pulse Resp BP BP Pulse Ox 09/04/23 15:20 80 09/04/23 15:11 80 09/04/23 14:19 97.7 F 79 16 99/64 93 L 09/04/23 13:00 80 16 120/66 98 09/04/23 11:24 88 09/04/23 11:16 86 09/04/23 11:00 99 16 107/65 97 09/04/23 08:31 98 09/04/23 08:20 103 H 09/04/23 06:29 75 16 97/52 94 L 09/04/23 03:54 84 18 90/54 93 L 09/04/23 03:51 84 09/04/23 03:39 80 09/04/23 01:23 75 18 111/69 09/03/23 23:56 95/63 09/03/23 23:53 79 18 90/52 94 L 09/03/23 22:36 72 09/03/23 22:25 72 09/03/23 21:12 62 18 120/80 09/03/23 20:00 74 18 104/68 97 Intake and Output 09/04/23 09/04/23 09/04/23 06:59 14:59 22:59 Intake Total 360 Output Total 1100 Balance -1100 360 Intake: Oral 360 Output: Urine 1100 Other: # Voids 1 Weight 163.293 kg Results 09/04/23 07:03 09/04/23 07:03 Cardiac Enzymes 09/04/23 Range/Units 07:03 AST 21 (17-59) U/L CBC 09/04/23 Range/Units 07:03 WBC 14.8 H (3.8-10.6) k/uL RBC 4.59 (4.30-5.90) m/uL Hgb 13.4 (13.0-17.5) gm/dL Hct 41.7 (39.0-53.0) % Plt Count 197 (150-450) k/uL Comprehensive Metabolic Panel 09/04/23 Range/Units 07:03 Sodium 140 (137-145) mmol/L Potassium 3.2 L (3.5-5.1) mmol/L Chloride 101 (98-107) mmol/L Carbon Dioxide 34 H (22-30) mmol/L BUN 25 H (9-20) mg/dL Creatinine 0.76 (0.66-1.25) mg/dL Glucose 112 H (74-99) mg/dL Calcium 8.7 (8.4-10.2) mg/dL AST 21 (17-59) U/L ALT 16 (4-49) U/L Alkaline Phosphatase 100 (38-126) U/L Total Protein 6.4 (6.3-8.2) g/dL Albumin 3.5 (3.5-5.0) g/dL Current Medications Generic Name Dose Route Start Last Admin Trade Name Freq PRN Reason Stop Dose Admin Albuterol Sulfate 2.5 mg 09/03/23 13:22 Albuterol Nebulized 2.5 Mg/3 Ml INHALATION RT-Q4H PRN Shortness Of Breath Albuterol/Ipratropium 3 ml 09/03/23 16:00 09/04/23 15:11 Ipratropium-Albuterol 3 Ml Neb INHALATION 3 ml RT-Q4H ROCKY Administration Apixaban 5 mg 09/03/23 21:00 09/04/23 08:23 Apixaban 5 Mg Tab PO 5 mg BID ROCKY Administration Protocol Aspirin 81 mg 09/04/23 09:00 09/04/23 08:23 Aspirin 81 Mg PO 81 mg DAILY ROCKY Administration Atorvastatin Calcium 80 mg 09/04/23 09:00 09/04/23 08:23 Atorvastatin 80 Mg Tab PO 80 mg DAILY ROCKY Administration Carvedilol 25 mg 09/03/23 17:30 09/04/23 16:58 Carvedilol 12.5 Mg Tab PO 25 mg BID-W/MEALS ROCKY Administration Diltiazem HCl 120 mg 09/04/23 09:00 09/04/23 08:24 Diltiazem Cd 120 Mg Cap.Er.24h PO 120 mg DAILY ROCKY Administration Ezetimibe 10 mg 09/04/23 09:00 09/04/23 08:23 Ezetimibe 10 Mg Tab PO 10 mg DAILY ROCKY Administration Furosemide 60 mg 09/04/23 08:30 09/04/23 11:40 Furosemide 10 Mg/Ml 10 Ml Vial IV 60 mg Q12HR ROCKY Administration Hydrochlorothiazide 12.5 mg 09/04/23 09:00 09/04/23 08:24 Hydrochlorothiazide 12.5 Mg Cap PO 12.5 mg DAILY ROCKY Administration Insulin Aspart 0 unit 09/03/23 17:30 09/04/23 16:58 Insulin Aspart (Novolog) 100 Unit/Ml Vial SQ 2 unit ACHS ROCKY Administration Protocol Losartan Potassium 100 mg 09/04/23 09:00 09/04/23 08:24 Losartan 50 Mg Tab PO 100 mg DAILY ROCKY Administration Methylprednisolone Sodium Succinate 40 mg 09/04/23 08:00 09/04/23 15:59 Methylprednisolone Sod Succi 40 Mg/Ml 1 Ml Vial IV 40 mg Q8HR ROCKY Administration Naloxone HCl 0.2 mg 09/03/23 12:27 Naloxone 0.4 Mg/Ml 1 Ml Vial IV Q2M PRN Opioid Reversal Nitroglycerin 0.4 mg 09/03/23 13:22 Nitroglycerin Sl Tabs 0.4 Mg Tab SUBLINGUAL Q5M PRN Chest Pain Potassium Chloride 20 meq 09/04/23 09:00 09/04/23 08:23 Potassium Chloride Er 20 Meq Tab.Er PO 20 meq DAILY ROCKY Administration Intake and Output 09/04/23 09/04/23 09/04/23 06:59 14:59 22:59 Intake Total 360 Output Total 1100 Balance -1100 360 Intake: Oral 360 Output: Urine 1100 Other: # Voids 1 Weight 163.293 kg Patient Weight 09/05/23 06:59 Weight 163.293 kg 09/04/23 07:03 09/04/23 07:03
[2023-09-04 20:50] LABS: Glucose,Whole Blood 209 mg/dL (70-110)
[2023-09-05 00:24] VITALS: RESP 18
[2023-09-05 06:32] LABS: Glucose,Whole Blood 130 mg/dL (70-110)
--- NOTE | 2023-09-05 10:54 | P.HPIM ---
History of Present Illness H&P Date: 09/04/23 Chief Complaint: shortness of breath HISTORY OF PRESENT ILLNESS: This is a 63-year-old male with a previous medical history significant for hypertension and hypertensive cardiovascular disease, hyperlipidemia, coronary artery disease status post PCI of the LAD as well as the obtuse marginal branch #2 with moderate disease of the RCA back in 2019, super morbid obesity status post sleeve gastrectomy back in 2013, currently getting phentermine 37.5 mg orally once every day, paroxysmal atrial fibrillation , obesity with obstructive sleep apnea has not gotten his CPAP yet as a matter fact he was supposed to get his CPAP yesterday but he came to the office with increased shortness of breath as well as increased orthopnea as well as PND, patient was not able to lay flat patient was seen in the office, his oxygen saturation was around 88% dipping down to 85%, he was complaining of increased shortness of breath with orthopnea and PND, he was sent to the emergency department for evaluation, his chest x-ray did not show evidence of acute abnormalities, but because of the presentation he was started on IV diuretics in the form of Lasix 60 mg IV push every 8 hours, and he was admitted to the hospital for evaluation by cardiology, patient was seen in the floor, he is sitting up in bed he is feeling a bit better since he was started in the diuretic last night, he is currently down to twice every day, continue current treatment plan, monitor the patient very closely, patient also was started on Solu-Medrol 60 mg IV push every 6 hours for COPD exacerbation. REVIEW OF SYSTEMS: Constitutional: No fever, no chills, no night sweats. No weight change. No weakness, fatigue or lethargy. No daytime sleepiness. HEENT: No headache. No blurred vision or double vision, no loss of vision. No loss of Hearing, no ringing in the ears, no dizziness. No nasal drainage or congestion. No epistaxis. No sore throat. Lungs: positive for shortness of breath, no cough positive for minimal wheezing. Reports dyspnea with activity. Cardiovascular: No chest pain, no lower extremity edema. No palpitations. Positive for paroxysmal nocturnal dyspnea. Positive for orthopnea. No lightheadedness or dizziness. No syncopal episodes. Abdominal: Reports no abdominal pain. No nausea, vomiting. No diarrhea. No constipation. No bloody or tarry stools reports loss of appetite. Genitourinary: No dysuria, increased frequency, urgency. No urinary retention. Musculoskeletal: No myalgias. No muscle weakness, no gait dysfunction, no frequent falls. No back pain. No neck pain. Integumentary: no wounds, no lesions. No rash or pruritus. No unusual bruising . No change in hair or nails. Neurologic: No aphasia. No facial droop. No change in mentation. No head injury. No headache. No paralysis. No paresthesia. Psychiatric: No depression. No anxiety. No mood swings. Endocrine: No abnormal blood sugars. No weight change. PAST MEDICAL HISTORY: Hypertension and hypertensive cardiovascular disease. Hyperlipidemia. CAD post-PCI of the LAD and OM to moderate disease of the RCA Obesity status post sleeve gastrectomy 2013 Osteoarthritis BPH Tobacco use. COPD Paroxysmal atrial fibrillation PAST SURGICAL HISTORY: Appendectomy. sleeve gastrectomy 2013 Left heart catheterization with PCI of the OM 2 and LAD and moderate disease of the RCA Umbilical hernia repair Colonoscopy. Left TKA 06/2022 Right TKA 11/2022 SOCIAL HISTORY: patient smokes about half a pack every day since he was 17-year-old and he continues to smoke, he denies any drug use or abuse. FAMILY HISTORY: father at age of 72 from massive [place] as well as overweight, mother at age of 70 from throat cancer, patient has one brother 57-year-old with history of diabetes mellitus type 1 on insulin pump, patient has 3 sisters alive and well, 1 daughter no major medical problems. PHYSICAL EXAMINATION: General: 63-year-old male sitting up in chair with minimal respiratory distress HEENT: Head is atraumatic, normocephalic, pupils were equal round reactive to light and recommendation, extraocular muscle movement were intact, sclera nonicteric, conjunctivae were pale, mucous membranes of the mouth are somewhat dry. Neck: Supple, no JVP, normal carotid upstroke bilaterally, no lymphadenopathy. Chest: Decreased breath sounds at the bases, few rhonchi, minimal expiratory wheezes, no chest wall tenderness, no intercostal retractions. Heart: First heart sound is normal, second heart sound is normal there is JAVIER 2/6 located at the left sternal border. Abdomen: Soft, nontender, nondistended, positive bowel sounds. Extremities: There is +1 edema no calf tenderness DP +2 bilaterall. Neurologic examination: Patient is awake alert and oriented X 3 , cranial nerves II-12 appear grossly intact, muscle power were 5 out of 5 in upper extremities and 5 out of 5 in bilateral lower extremities, deep tendon reflexes normal bilaterally. ASSESSMENT AND PLAN: 1. Acute hypoxemic respiratory failure due to acute diastolic heart failure continue patient on Lasix 60 mg IV push every 12 hours, we will switch the patient to oral torsemide tomorrow morning, continue patient on carvedilol 25 mg orally twice every day, continue Cardizem CD 120 mg once every day, monitor the patient input and output and daily weight, cardiology consultation. 2. COPD exacerbation. Continue patient on Solu-Medrol 40 mg IV push every 8 hours, continue DuoNeb 3 mm nebulization 4 times every day, continue oxygen support, follow-up with the patient very closely. 3. Paroxysmal atrial fibrillation continue patient on Cardizem CD1 20 mg once every day, continue carvedilol 25 mg orally twice every day, continue Eliquis 5 mg orally twice every day. 4. Hypertension and hypertensive cardiovascular disease . Continue patient on carvedilol 25 mg orally twice every day, continue losartan 100/12.5 mg orally once every day, continue Cardizem CD 120 mg once every day, monitor the patient blood pressure very closely. 5. Mixed hyperlipidemia. Continue atorvastatin 80 mg orally once every day, Zetia 10 mg once every day, keep LDL 55-70. 6. Osteoarthritis. Post bilateral total knee arthroplasties. 7. CAD post-PCI of the LAD and obtuse marginal branch 2. Continue patient on aspirin 81 mg once every day, continue carvedilol 25 mg orally twice every day as well as atorvastatin 80 mg orally once every day. Patient follows with Dr. Desouza as an outpatient on a regular basis. 8. Super morbid obesity with obstructive sleep apnea. Patient was advised to get his CPAP as soon as possible. 9. DVT prophylaxis . Continue patient on Eliquis 5 mg orally twice every day. 10. GI prophylaxis. continue Protonix 40 mg orally once every day. 11. Admit to inpatient. Estimated length of stay 2 midnights. 12. Full code. Past Medical History Past Medical History: Atrial Fibrillation, Coronary Artery Disease (CAD), Diabetes Mellitus, Hyperlipidemia, Hypertension, Myocardial Infarction ([place]), Osteoarthritis (OA), Sleep Apnea/CPAP/BIPAP Additional Past Medical History / Comment(s): "I thought I had pneumonia and they did an EKG at [facility] and said I was in A-Fib 04/11"diet controlled di abetes "Borderline diabetes." "I have severe sleep apnea and I have to have another test next month."-"I have not been put on a C-PAP.". difficulty swallow-has had issue for years per pt. Patient states he is not Diabetic Last Myocardial Infarction Date:: 11/05 History of Any Multi-Drug Resistant Organisms: None Reported Past Surgical History: Appendectomy, Bariatric Surgery, Heart Catheterization, Heart Catheterization With Stent, Hernia Repair Additional Past Surgical History / Comment(s): gastric sleeve 2015; stents X2 placed October 2019, right total knee and lt knee replacement, Past Anesthesia/Blood Transfusion Reactions: No Reported Reaction Additional Past Anesthesia/Blood Transfusion Reaction / Comment(s): hard for patient to lay flat on back Date of Last Stent Placement:: 10/2019 Past Psychological History: No Psychological Hx Reported Smoking Status: Former smoker Past Alcohol Use History: None Reported Past Drug Use History: None Reported - Past Family History Mother Family Medical History: Cancer Additional Family Medical History / Comment(s): throat cancer. Medications and Allergies Home Medications Medication Instructions Recorded Confirmed Type Ezetimibe [Zetia] 10 mg PO DAILY 06/11/22 09/03/23 History Losartan/Hydrochlorothiazide 1 tab PO DAILY 11/13/22 09/03/23 History [Hyzaar 100-12.5 Tablet] Albuterol Sulfate [Albuterol 1 puff INHALATION RT-Q4H PRN 03/14/23 09/03/23 History Sulfate Hfa] Atorvastatin [Lipitor] 80 mg PO DAILY 03/14/23 09/03/23 History Nitroglycerin Sl Tabs [Nitrostat] 0.4 mg SL Q5M PRN 03/14/23 09/03/23 History Apixaban [Eliquis] 5 mg PO BID #180 tab 03/18/23 09/03/23 Rx Aspirin 81 mg PO DAILY 06/29/23 09/03/23 History dilTIAZem HCL [Cardizem CD] 120 mg PO DAILY 06/29/23 09/03/23 History Potassium Chloride ER [K-Dur 20] 20 meq PO DAILY 09/03/23 09/03/23 History Torsemide [Demadex] 40 mg PO DAILY 09/03/23 09/03/23 History carvediloL [Coreg] 25 mg PO BID 09/03/23 09/03/23 History Allergies Allergy/AdvReac Type Severity Reaction Status Date / Time No Known Allergies Allergy Verified 09/03/23 11:34 Physical Exam Vitals: Vital Signs Pulse Resp BP Pulse Ox 09/04/23 11:24 88 09/04/23 11:16 86 09/04/23 08:31 98 09/04/23 08:20 103 H 09/04/23 06:29 75 16 97/52 94 L 09/04/23 03:54 84 18 90/54 93 L 09/04/23 03:51 84 09/04/23 03:39 80 09/04/23 01:23 75 18 111/69 09/03/23 23:56 95/63 09/03/23 23:53 79 18 90/52 94 L 09/03/23 22:36 72 09/03/23 22:25 72 09/03/23 21:12 62 18 120/80 09/03/23 20:00 74 18 104/68 97 09/03/23 17:44 80 18 110/80 97 09/03/23 15:08 69 09/03/23 14:58 68 94 L 09/03/23 14:31 70 20 106/66 96 Intake and Output 09/03/23 09/04/23 09/04/23 22:59 06:59 14:59 Output Total 1100 Balance -1100 Output: Urine 1100 Other: # Voids 1 Results CBC & Chem 7: 09/04/23 07:03 09/04/23 07:03 Labs: Abnormal Lab Results - Last 24 Hours (Table) 09/03/23 09/03/23 09/04/23 Range/Units 17:41 21:25 07:03 WBC (3.8-10.6) k/uL Neutrophils # (1.3-7.7) k/uL Potassium 3.2 L (3.5-5.1) mmol/L Carbon Dioxide 34 H (22-30) mmol/L BUN 25 H (9-20) mg/dL Glucose 112 H (74-99) mg/dL POC Glucose (mg/dL) 130 H 232 H (70-110) mg/dL Total Bilirubin 1.5 H (0.2-1.3) mg/dL 09/04/23 09/04/23 09/04/23 Range/Units 07:03 08:13 12:33 WBC 14.8 H (3.8-10.6) k/uL Neutrophils # 12.9 H (1.3-7.7) k/uL Potassium (3.5-5.1) mmol/L Carbon Dioxide (22-30) mmol/L BUN (9-20) mg/dL Glucose (74-99) mg/dL POC Glucose (mg/dL) 128 H 112 H (70-110) mg/dL Total Bilirubin (0.2-1.3) mg/dL
[2023-09-05 11:45] LABS: Glucose,Whole Blood 167 mg/dL (70-110)
--- NOTE | 2023-09-05 12:25 | P.PN ---
Subjective Progress Note Date: 09/05/23 HISTORY OF PRESENT ILLNESS: This is a 63-year-old male with a previous medical history significant for hypertension and hypertensive cardiovascular disease, hyperlipidemia, coronary artery disease status post PCI of the LAD as well as the obtuse marginal branch #2 with moderate disease of the RCA back in 2019, super morbid obesity status post sleeve gastrectomy back in 2013, currently getting phentermine 37.5 mg orally once every day, paroxysmal atrial fibrillation , obesity with obstructive sleep apnea has not gotten his CPAP yet as a matter fact he was supposed to get his CPAP yesterday but he came to the office with increased shortness of breath as well as increased orthopnea as well as PND, patient was not able to lay flat patient was seen in the office, his oxygen saturation was around 88% dipping down to 85%, he was complaining of increased shortness of breath with orthopnea and PND, he was sent to the emergency department for evaluation, his chest x-ray did not show evidence of acute abnormalities, but because of the presentation he was started on IV diuretics in the form of Lasix 60 mg IV push every 8 hours, and he was admitted to the hospital for evaluation by cardiology, patient was seen in the floor, he is sitting up in bed he is feeling a bit better since he was started in the diuretic last night, he is currently down to twice every day, continue current treatment plan, monitor the patient very closely, patient also was started on Solu-Medrol 60 mg IV push every 6 hours for COPD exacerbation. 09/04: Patient sitting up in bed in no apparent distress, he is feeling a lot better today, he was switched to oral torsemide 40 mg orally once every day, continue with current treatment plan, we will decrease his Solu-Medrol to 40 mg IV push every 12 hours, continue patient on carvedilol 25 mg orally twice every day, continue Cardizem, continue other treatment plan, encourage activity, will most likely patient will be discharged home in the next 24 hours, patient is back into atrial fibrillation, his heart rate is very controlled REVIEW OF SYSTEMS: Constitutional: No fever, no chills, no night sweats. No weight change. No weakness, fatigue or lethargy. No daytime sleepiness. HEENT: No headache. No blurred vision or double vision, no loss of vision. No loss of Hearing, no ringing in the ears, no dizziness. No nasal drainage or congestion. No epistaxis. No sore throat. Lungs: positive for shortness of breath, no cough positive for minimal wheezing. Reports dyspnea with activity. Cardiovascular: No chest pain, no lower extremity edema. No palpitations. Positive for paroxysmal nocturnal dyspnea. Positive for orthopnea. No lightheadedness or dizziness. No syncopal episodes. Abdominal: Reports no abdominal pain. No nausea, vomiting. No diarrhea. No constipation. No bloody or tarry stools reports loss of appetite. Genitourinary: No dysuria, increased frequency, urgency. No urinary retention. Musculoskeletal: No myalgias. No muscle weakness, no gait dysfunction, no frequent falls. No back pain. No neck pain. Integumentary: no wounds, no lesions. No rash or pruritus. No unusual bruising. No change in hair or nails. Neurologic: No aphasia. No facial droop. No change in mentation. No head injury. No headache. No paralysis. No paresthesia. Psychiatric: No depression. No anxiety. No mood swings. Endocrine: No abnormal blood sugars. No weight change. PHYSICAL EXAMINATION: General: 63-year-old male sitting up in chair with minimal respiratory distress HEENT: Head is atraumatic, normocephalic, pupils were equal round reactive to light and recommendation, extraocular muscle movement were intact, sclera nonicteric, conjunctivae were pale, mucous membranes of the mouth are somewhat dry. Neck: Supple, no JVP, normal carotid upstroke bilaterally, no lymphadenopathy. Chest: Decreased breath sounds at the bases, few rhonchi, minimal expiratory wheezes, no chest wall tenderness, no intercostal retractions. Heart: First heart sound is normal, second heart sound is normal there is JAVIER 2/6 located at the left sternal border. Abdomen: Soft, nontender, nondistended, positive bowel sounds. Extremities: There is +1 edema no calf tenderness DP +2 bilaterall. Neurologic examination: Patient is awake alert and oriented X 3 , cranial nerves II-12 appear grossly intact, muscle power were 5 out of 5 in upper extremities and 5 out of 5 in bilateral lower extremities, deep tendon reflexes normal emmett aterally. ASSESSMENT AND PLAN: 1. Acute hypoxemic respiratory failure due to acute diastolic heart failure continue patient on torsemide 40 mg once every day , continue patient on carvedilol 25 mg orally twice every day, continue Cardizem CD 120 mg once every day, monitor the patient input and output and daily weight, cardiology consultation appreciated. 2. COPD exacerbation. Continue patient on Solu-Medrol 40 mg IV push every 12 hours, continue DuoNeb 3 mm nebulization 4 times every day, continue oxygen support, follow-up with the patient very closely. 3. Paroxysmal atrial fibrillation continue patient on Cardizem CD1 20 mg once every day, continue carvedilol 25 mg orally twice every day, continue Eliquis 5 mg orally twice every day. 4. Hypertension and hypertensive cardiovascular disease . Continue patient on carvedilol 25 mg orally twice every day, continue losartan 100/12.5 mg orally once every day, continue Cardizem CD 120 mg once every day, monitor the patient blood pressure very closely. 5. Mixed hyperlipidemia. Continue atorvastatin 80 mg orally once every day, Zetia 10 mg once every day, keep LDL 55-70. 6. Osteoarthritis. Post bilateral total knee arthroplasties. 7. CAD post-PCI of the LAD and obtuse marginal branch 2. Continue patient on aspirin 81 mg once every day, continue carvedilol 25 mg orally twice every day as well as atorvastatin 80 mg orally once every day. Patient follows with Dr. Desouza as an outpatient on a regular basis. 8. Super morbid obesity with obstructive sleep apnea. Patient was advised to get his CPAP as soon as possible. 9. DVT prophylaxis . Continue patient on Eliquis 5 mg orally twice every day. 10. GI prophylaxis. continue Protonix 40 mg orally once every day. 11. Home tomorrow morning. Objective - Vital Signs Vital signs: Vital Signs Temp 98.1 F 09/05/23 08:00 Pulse 88 09/05/23 09:20 Resp 18 09/05/23 08:00 BP 132/62 09/05/23 08:00 Pulse Ox 90 L 09/05/23 09:10 FiO2 Intake & Output 09/04/23 09/05/23 09/05/23 18:59 06:59 18:59 Intake Total 360 231 118 Output Total 900 Balance 360 -669 118 Weight 163.293 kg 162.5 kg Intake: IV 10 Invasive Line 1 10 Oral 360 221 118 Output: Urine 900 Other: Voiding Method Urinal - Labs CBC & Chem 7: 09/04/23 07:03 09/04/23 07:03 Labs: Abnormal Lab Results - Last 24 Hours (Table) 09/04/23 09/04/23 09/04/23 Range/Units 12:33 16:46 20:37 POC Glucose (mg/dL) 112 H 153 H 209 H (70-110) mg/dL 09/05/23 Range/Units 06:30 POC Glucose (mg/dL) 130 H (70-110) mg/dL
--- NOTE | 2023-09-05 13:07 | P.PN ---
Subjective Progress Note Date: 09/05/23 patient is a 63-year-old male presenting with worsening shortness of breath. He was admitted for heart failure. He was started on IV Lasix and diuresed over the last 24 hours. He has responded well. One brief episode of atrial fibrillation overnight. Patient interviewed and examined sitting up comfortably on the side of the bed he states he was asymptomatic during his A. fib episode. He's been able to ambulate to and from the restroom without any issues. GENERAL: Well-appearing, well-nourished and in no acute distress. NECK: Supple without JVD or thyromegaly. LUNGS: Breath sounds diminished to auscultation bilaterally. Respiration equal and unlabored. No wheezes, rales or rhonchi. HEART: Regular rate and rhythm without murmurs, rubs or gallops. S1 and S2 heard. EXTREMITIES: Normal range of motion, mild edema. No clubbing or cyanosis. Peripheral pulses intact and strong. TELEMETRY: sinus rhythm overnight. One brief episode of atrial fibrillation. 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 fib PLAN: transition back to oral diuretics Patient to obtain CPAP and encourage compliance Patient may be discharged for outpatient follow-up with primary retail assistant manager Dr Hernandez I am dictating on behalf of Dr Jann Valderrama's history/physical and asse ssment/plan. Objective - Vital Signs Vital signs: Vital Signs Temp 98.1 F 09/05/23 08:00 Pulse 82 09/05/23 12:37 Resp 18 09/05/23 12:00 BP 125/74 09/05/23 12:00 Pulse Ox 94 L 09/05/23 12:00 FiO2 Intake & Output 09/04/23 09/05/23 09/05/23 18:59 06:59 18:59 Intake Total 360 231 118 Output Total 900 1125 Balance 101 -629 -2424 Weight 163.293 kg 162.5 kg Intake: IV 10 Invasive Line 1 10 Oral 360 221 118 Output: Urine 900 1125 Other: Voiding Method Urinal - Labs CBC & Chem 7: 09/04/23 07:03 09/04/23 07:03 Labs: Abnormal Lab Results - Last 24 Hours (Table) 09/04/23 09/04/23 09/05/23 Range/Units 16:46 20:37 06:30 POC Glucose (mg/dL) 153 H 209 H 130 H (70-110) mg/dL 09/05/23 Range/Units 11:43 POC Glucose (mg/dL) 167 H (70-110) mg/dL
[2023-09-05 16:20] LABS: Glucose,Whole Blood 141 mg/dL (70-110)
[2023-09-05 20:20] LABS: Glucose,Whole Blood 128 mg/dL (70-110)
[2023-09-05] MEDS: methylPREDNISolone SOD SUCCI 40 MG/ML 1 ML VIAL IV SCH (20:22)
[2023-09-06 05:45] LABS: Basophils % (A) 0 %; Eosinophils % (A) 0 %; HCT 42.9 % (39.0-53.0); HGB 14.1 gm/dL (13.0-17.5); Hypochromasia Slight; Lymphocytes # (A) 0.8 k/uL (1.0-4.8); Lymphocytes % (A) 5 %; MCH 29.3 pg (25.0-35.0); MCHC 32.8 g/dL (31.0-37.0); MCV 89.4 fL (80.0-100.0); Mean Platelet Volume 8.3; Monocytes # (A) 0.7 k/uL (0-1.0); Monocytes % (A) 4 %; Neutrophils # (A) 14.6 k/uL (1.3-7.7); Neutrophils % (A) 90 %; Platelet Count 205 k/uL (150-450); RDW 15.6 % (11.5-15.5); WBC 16.2 k/uL (3.8-10.6)
[2023-09-06 06:06] LABS: ALT 20 U/L (4-49); AST 20 U/L (17-59); African American GFR (CKD) >90 (>60 ml/min/1.73 sqM); Albumin 3.6 g/dL (3.5-5.0); Alkaline Phosphatase 93 U/L (38-126); Anion Gap -3 mmol/L; Blood Urea Nitrogen 28 mg/dL (9-20); Calcium 8.8 mg/dL (8.4-10.2); Carbon Dioxide 30 mmol/L (22-30); Chloride 100 mmol/L (98-107); Glucose 176 mg/dL (74-99); Non-African American GFR(CKD) >90 (>60 ml/min/1.73 sqM); Potassium 3.6 mmol/L (3.5-5.1); Sodium 127 mmol/L (137-145); Total Protein 6.5 g/dL (6.3-8.2)
[2023-09-06 06:17] LABS: Glucose,Whole Blood 143 mg/dL (70-110)
[2023-09-06] MEDS: TORSEMIDE 20 MG TAB PO SCH (09:25)
--- NOTE | 2023-09-06 09:29 | P.DS ---
Providers Date of admission: 09/03/23 12:30 Expected date of discharge: 09/06/23 Attending physician: Roosevelt العلي Consults: 09/03/23 12:27 Consult Physician Urgent Consulting Provider: [facility] Consult Reason/Comments: acute hypoxic resp failure, chf, copd Do you want consulting provider notified?: Yes Primary care physician: Roosevelt العلي Hospital Course: HISTORY OF PRESENT ILLNESS: This is a 63-year-old male with a previous medical history significant for hypertension and hypertensive cardiovascular disease, hyperlipidemia, coronary artery disease status post PCI of the LAD as well as the obtuse marginal branch #2 with moderate disease of the RCA back in 2019, super morbid obesity status post sleeve gastrectomy back in 2013, currently getting ph entermine 37.5 mg orally once every day, paroxysmal atrial fibrillation , obesity with obstructive sleep apnea has not gotten his CPAP yet as a matter fact he was supposed to get his CPAP yesterday but he came to the office with increased shortness of breath as well as increased orthopnea as well as PND, patient was not able to lay flat patient was seen in the office, his oxygen saturation was around 88% dipping down to 85%, he was complaining of increased shortness of breath with orthopnea and PND, he was sent to the emergency department for evaluation, his chest x-ray did not show evidence of acute abnormalities, but because of the presentation he was started on IV diuretics in the form of Lasix 60 mg IV push every 8 hours, and he was admitted to the hospital for evaluation by cardiology, patient was seen in the floor, he is sitting up in bed he is feeling a bit better since he was started in the diuretic last night, he is currently down to twice every day, continue current treatment plan, monitor the patient very closely, patient also was started on Solu-Medrol 60 mg IV push every 6 hours for COPD exacerbation. 09/04: Patient sitting up in bed in no apparent distress, he is feeling a lot better today, he was switched to oral torsemide 40 mg orally once every day, continue with current treatment plan, we will decrease his Solu-Medrol to 40 mg IV push every 12 hours, continue patient on carvedilol 25 mg orally twice every day, continue Cardizem, continue other treatment plan, encourage activity, will most likely patient will be discharged home in the next 24 hours, patient is back into atrial fibrillation, his heart rate is very controlled 7/21: Patient is sitting up in bed today, he denies any chest pain, shortness of breath, he has no abdominal pain, nausea vomiting or diarrhea, he has been on torsemide 40 mg once every day, is diuresing well, his monitor showing atrial fibrillation with controlled rate of 77, patient will be discharged home today and follow-up with us as an outpatient next week, he is to follow-up with his credit review officer as an outpatient in 2 weeks. Discharge diagnoses: 1. Acute hypoxemic respiratory failure due to acute diastolic heart failure 2. COPD exacerbation. 3. Paroxysmal atrial fibrillation 4. Hypertension and hypertensive cardiovascular disease . 5. Mixed hyperlipidemia. 6. Osteoarthritis. 7. CAD post-PCI of the LAD and obtuse marginal branch 2. 8. Super morbid obesity with obstructive sleep apnea. Patient Condition at Discharge: Stable Plan - Discharge Summary Discharge Rx Participant: No New Discharge Prescriptions: No Action Ezetimibe [Zetia] 10 mg PO DAILY dilTIAZem HCL [Cardizem CD] 120 mg PO DAILY Aspirin 81 mg PO DAILY Potassium Chloride ER [K-Dur 20] 20 meq PO DAILY Torsemide [Demadex] 40 mg PO DAILY Losartan/Hydrochlorothiazide [Hyzaar 100-12.5 Tablet] 1 tab PO DAILY Albuterol Sulfate [Albuterol Sulfate Hfa] 1 puff INHALATION RT-Q4H PRN PRN Reason: Shortness Of Breath Nitroglycerin Sl Tabs [Nitrostat] 0.4 mg SL Q5M PRN PRN Reason: Chest Pain Atorvastatin [Lipitor] 80 mg PO DAILY Apixaban [Eliquis] 5 mg PO BID #180 tab carvediloL [Coreg] 25 mg PO BID Discharge Medication List Ezetimibe [Zetia] 10 mg PO DAILY 06/11/22 [History] Losartan/Hydrochlorothiazide [Hyzaar 100-12.5 Tablet] 1 tab PO DAILY 11/13/22 [History] Albuterol Sulfate [Albuterol Sulfate Hfa] 1 puff INHALATION RT-Q4H PRN 03/14/23 [History] Atorvastatin [Lipitor] 80 mg PO DAILY 03/14/23 [History] Nitroglycerin Sl Tabs [Nitrostat] 0.4 mg SL Q5M PRN 03/14/23 [History] Apixaban [Eliquis] 5 mg PO BID #180 tab 03/18/23 [Rx] Aspirin 81 mg PO DAILY 06/29/23 [History] dilTIAZem HCL [Cardizem CD] 120 mg PO DAILY 06/29/23 [History] Potassium Chloride ER [K-Dur 20] 20 meq PO DAILY 09/03/23 [History] Torsemide [Demadex] 40 mg PO DAILY 09/03/23 [History] carvediloL [Coreg] 25 mg PO BID 09/03/23 [History] Follow up Appointment(s)/Referral(s): Roosevelt العلي MD [Primary Care Provider] - 1-2 days
[2023-09-06 10:01] VITALS: BP 138/81; PULSE 82; TEMP 97.9
== END 2023-09-06 11:15 | disposition home or self-care (01) | DRG 291 ==
LOC: EC 09:36 → 3SCARD 12:30
PROVIDERS: ADMIT Internal Medicine; ATTEND Internal Medicine
DX: I11.0 Hypertensive heart disease with heart failure (principal); I50.33 Acute on chronic diastolic (congestive) heart failure; J96.01 Acute respiratory failure with hypoxia; J44.1 Chronic obstructive pulmonary disease with (acute) exacerbation; E66.2 Morbid (severe) obesity with alveolar hypoventilation; Z68.43 Body mass index [BMI] 50.0-59.9, adult; I48.0 Paroxysmal atrial fibrillation; E11.9 Type 2 diabetes mellitus without complications; I25.2 Old myocardial infarction; Z79.01 Long term (current) use of anticoagulants; E78.2 Mixed hyperlipidemia; I25.10 Atherosclerotic heart disease of native coronary artery without angina pectoris; N40.0 Benign prostatic hyperplasia without lower urinary tract symptoms; F17.210 Nicotine dependence, cigarettes, uncomplicated; M19.90 Unspecified osteoarthritis, unspecified site; Z79.82 Long term (current) use of aspirin; Z79.899 Other long term (current) drug therapy; Z96.653 Presence of artificial knee joint, bilateral; Z95.5 Presence of coronary angioplasty implant and graft; Z98.84 Bariatric surgery status
CPT/HCPCS: 36415; 71046; 80053; 83735; 83880; 84484; 85025; 85610; 85730; 93005; 94640; 94760; 96374; 96375; 96376; 99291

== ENCOUNTER 2023-09-20 12:23 | Observation (INO) | payer BC ==
--- NOTE | 2023-09-20 12:54 | ED ---
Syncope HPI - General Chief Complaint: Neuro Symptoms/Deficit Stated Complaint: Vision issue Time Seen by Provider: 09/20/23 12:36 Source: patient, RN notes reviewed, old records reviewed Mode of arrival: wheelchair Limitations: no limitations - History of Present Illness Initial Comments: This is a 63-year-old male to the ER for evaluation today. Patient stated for evaluation of near syncopal event felt a little bit off and dizzy last night with elevated heart rate. History of A-fib is being feeling unwell since last night went to get a pedicure today while his was finishing getting her nails done he was sat in the car and felt he was going to pass out had blurry vision and difficulty with seeing things far away, color changing. No headache chest pain, patient feels improved here in the ER although feels still a little near syncopal with no prior history of syncopal event. No shortness of breath chest pain nausea vomiting or diarrhea MD Complaint: loss of consciousness, almost passed out -: hour(s) Prodromal Symptoms: none -: second(s) Witnessed: yes - by bystander Injuries Sustained Associated with Event: None Current Symptoms: lightheaded History: previous syncopal episode Context: other Treatments Prior to Arrival: none - Related Data Home Medications Medication Instructions Recorded Confirmed Ezetimibe [Zetia] 10 mg PO DAILY 06/11/22 09/20/23 Losartan/Hydrochlorothiazide 1 tab PO DAILY 11/13/22 09/20/23 [Hyzaar 100-12.5 Tablet] Albuterol Sulfate [Albuterol 1 puff INHALATION RT-Q4H PRN 03/14/23 09/20/23 Sulfate Hfa] Atorvastatin [Lipitor] 80 mg PO DAILY 03/14/23 09/20/23 Nitroglycerin Sl Tabs [Nitrostat] 0.4 mg SL Q5M PRN 03/14/23 09/20/23 Aspirin 81 mg PO DAILY 06/29/23 09/20/23 dilTIAZem HCL [Cardizem CD] 120 mg PO DAILY 06/29/23 09/20/23 Potassium Chloride ER [K-Dur 20] 20 meq PO DAILY 09/03/23 09/20/23 Torsemide [Demadex] 40 mg PO DAILY 09/03/23 09/20/23 carvediloL [Coreg] 25 mg PO BID 09/03/23 09/20/23 Previous Rx's Medication Instructions Recorded Apixaban [Eliquis] 5 mg PO BID #180 tab 03/18/23 Allergies Allergy/AdvReac Type Severity Reaction Status Date / Time No Known Allergies Allergy Verified 09/20/23 14:30 Review of Systems ROS Statement: Those systems with pertinent positive or pertinent negative responses have been documented in the HPI. ROS Other: All systems not noted in ROS Statement are negative. Past Medical History Past Medical History: Atrial Fibrillation, Coronary Artery Disease (CAD), Diabetes Mellitus, Hyperlipidemia, Hypertension, Myocardial Infarction (SD), Osteoarthritis (OA), Sleep Apnea/CPAP/BIPAP Additional Past Medical History / Comment(s): "I thought I had pneumonia and they did an EKG at [facility] and said I was in A-Fib 04/11"diet controlled diabetes "Borderline diabetes." "I have severe sleep apnea and I have to have another test next month."-"I have not been put on a C-PAP.". difficulty swallow-has had issue for years per pt. Patient states he is not Diabetic Last Myocardial Infarction Date:: 11/05 History of Any Multi-Drug Resistant Organisms: None Reported Past Surgical History: Appendectomy, Bariatric Surgery, Heart Catheterization, Heart Catheterization With Stent, Hernia Repair Additional Past Surgical History / Comment(s): gastric sleeve 2015; stents X2 placed October 2019, right total knee and lt knee replacement, Past Anesthesia/Blood Transfusion Reactions: No Reported Reaction Additional Past Anesthesia/Blood Transfusion Reaction / Comment(s): hard for patient to lay flat on back Date of Last Stent Placement:: 10/2019 Past Psychological History: No Psychological Hx Reported Smoking Status: Former smoker Past Alcohol Use History: None Reported Past Drug Use History: None Reported - Past Family History Mother Family Medical History: Cancer Additional Family Medical History / Comment(s): throat cancer. General Exam Limitations: no limitations General appearance: alert, in no apparent distress, anxious, in distress Head exam: Present: atraumatic, normocephalic, normal inspection Eye exam: Present: normal appearance, PERRL, EOMI. Absent: scleral icterus, conjunctival injection, periorbital swelling ENT exam: Present: normal exam, mucous membranes moist Neck exam: Present: normal inspection. Absent: tenderness, meningismus, lymphadenopathy Respiratory exam: Present: normal lung sounds bilaterally. Absent: respiratory distress, wheezes, rales, rhonchi, stridor Cardiovascular Exam: Present: regular rate, normal rhythm, normal heart sounds. Absent: systolic murmur, diastolic murmur, rubs, gallop, clicks GI/Abdominal exam: Present: soft, normal bowel sounds. Absent: distended, tenderness, guarding, rebound, rigid Extremities exam: Present: normal inspection, full ROM, normal capillary refill. Absent: tenderness, pedal edema, joint swelling, calf tenderness Back exam: Present: normal inspection Neurological exam: Present: alert, oriented X3, CN II-XII intact Psychiatric exam: Present: normal affect, normal mood Skin exam: Present: warm, dry, intact, normal color. Absent: rash Course Vital Signs 09/20/23 09/20/23 09/20/23 12:24 12:55 13:00 Temperature 97.4 F L Pulse Rate 59 L 81 Respiratory 18 26 H 21 Rate Blood Pressure 71/48 86/42 76/35 O2 Sat by Pulse 93 L 95 91 L Oximetry 09/20/23 09/20/23 09/20/23 13:15 13:30 14:00 Temperature Pulse Rate 78 80 76 Respiratory 12 18 24 Rate Blood Pressure 78/35 84/43 100/57 O2 Sat by Pulse 94 L 92 L 94 L Oximetry 09/20/23 09/20/23 09/20/23 15:00 16:00 18:10 Temperature 98 F Pulse Rate 78 78 18 L Respiratory 11 L 15 18 Rate Blood Pressure 94/56 90/64 73/56 O2 Sat by Pulse 94 L 94 L 94 L Oximetry 09/20/23 19:00 Temperature Pulse Rate 67 Respiratory 18 Rate Blood Pressure 124/80 O2 Sat by Pulse Oximetry - Reevaluation(s) Reevaluation #1: 09/20/23 13:44 Records reviewed Reevaluation #2: 09/20/23 13:44 Patient symptoms improved 09/20/23 13:44 Symptoms continue to improve no headache chest pain shortness of breath or abdominal pain Reevaluation #3: 09/20/23 15:55 Symptoms improved Reevaluation #4: Was pt. sent in by a medical professional or institution (, PA, MOLD REPAIR TECHNICIAN, urgent care, hospital, or senior care...) When possible be specific @ -no Did you speak to anyone other than the patient for history (EMS, parent, family, police, friend...)? What history was obtained from this source @ -no Did you review nursing and triage notes (agree or disagree)? Why? @ -agree Are old charts reviewed (outside hosp., previous admission, EMS record, old EKG, old radiological studies, urgent care reports/EKG's, senior care records)? Report findings @ -yes Differential Diagnosis (chest pain, altered mental status, abdominal pain women, abdominal pain men, vaginal bleeding, weakness, fever, dyspnea, syncope, headache, dizziness, GI bleed, back pain, seizure, CVA, palpatations, mental health, musculoskeletal)? @ -prior EKG interpreted by me (3pts min.). @ -yes X-rays interpreted by me (1pt min.). @ -yes negative for acute disease CT interpreted by me (1pt min.). @ -Yes negative for acute disease U/S interpreted by me (1pt. min.). @ -no What testing was considered but not performed or refused? (CT, X-rays, U/S, labs)? Why? @ -none What meds were considered but not given or refused? Why? @ -none Did you discuss the management of the patient with other professionals (professionals i.e. , PA, MOLD REPAIR TECHNICIAN, lab, RT, psych nurse, social services aide, wire mill rover, teacher, morale officer, case advocate)? Give summary @ -no Was smoking cessation discussed for >3mins.? @ -no Was critical care preformed (if so, how long)? @ -yes31 Were there social determinants of health that impacted care today? How? (Homelessness, low income, unemployed, alcoholism, drug addiction, transportation, low edu. Level, literacy, decrease access to med. care, group home, rehab)? @ -none Was there de-escalation of care discussed even if they declined (Discuss DNR or withdrawal of care, Hospice)? DNR status @ -no What co-morbidities impacted this encounter? (DM, HTN, Smoking, COPD, CAD, Cancer, CVA, ARF, Chemo, Hep., AIDS, mental health diagnosis, sleep apnea, morbid obesity)? @ -none Was patient admitted / discharged? Hospital course, mention meds given and route, prescriptions, significant lab abnormalities, going to OR and other pertinent info. @ - 63 male to the ER for evaluation patient presents today for evaluation of near syncopal event without headache chest pain shortness with abdominal pain. No other complaints patient will be admitted for nursing complaint with low blood pressure Admitted Undiagnosed new problem with uncertain prognosis? @ -no Drug Therapy requiring intensive monitoring for toxicity (Heparin, Nitro, Insulin, Cardizem)? @ -no Were any procedures done? @ -no Diagnosis/symptom? @ -Could be with hypotension yes negative for acute disease Acute, or Chronic, or Acute on Chronic? @ -Acute Uncomplicated (without systemic symptoms) or Complicated (systemic symptoms)? @ -Complicated Side effects of treatment? @ -no Exacerbation, Progression, or Severe Exacerbation? @ -exacerbation Poses a threat to life or bodily function? How? (Chest pain, USA, SD, pneumonia, PE, COPD, DKA, ARF, appy, cholecystitis, CVA, Diverticulitis, Homicidal, Suicidal, threat to staff... and all critical care pts) @ -yes abnormal vital signs Reevaluation #5: Differential Syncope: Valvular disease, hypertrophic cardiomyopathy, pulmonary embolism, tamponade, tachycardia, bradycardia, SD, hypovolemia, hemorrhage, dissection, anemia, intracranial hemorrhage, seizure, hypoglycemia, carbon monoxide poisoning, this is not meant to be an all-inclusive list. - Consultations Consultation #1: With To her who agrees to admit this patient EKG Findings - EKG Comments: EKG Findings:: EKG is A-fib 78 QRS 110 QTc 449 - EKG Results: EKG: interpreted by DILSHAD Medical Decision Making - Medical Decision Making 63 male to the ER for evaluation patient presents today for evaluation of near syncopal event without headache chest pain shortness with abdominal pain. No other complaints patient will be admitted for nursing complaint with low blood pressure - Lab Data Result diagrams: 09/20/23 13:35 09/20/23 13:35 Lab Results 09/20/23 09/20/23 09/20/23 Range/Units 12:58 13:35 13:35 WBC 13.2 H (3.8-10.6) k/uL RBC 5.01 (4.30-5.90) m/uL Hgb 14.8 (13.0-17.5) gm/dL Hct 44.6 (39.0-53.0) % MCV 88.9 (80.0-100.0) fL MCH 29.6 (25.0-35.0) pg MCHC 33.2 (31.0-37.0) g/dL RDW 15.6 H (11.5-15.5) % Plt Count 188 (150-450) k/uL MPV 9.2 Neutrophils % 81 % Lymphocytes % 11 % Monocytes % 5 % Eosinophils % 2 % Basophils % 0 % Neutrophils # 10.6 H (1.3-7.7) k/uL Lymphocytes # 1.4 (1.0-4.8) k/uL Monocytes # 0.7 (0-1.0) k/uL Eosinophils # 0.2 (0-0.7) k/uL Basophils # 0.0 (0-0.2) k/uL PT 12.3 (10.0-12.5) sec INR 1.2 H (<1.2) APTT 26.9 (22.0-30.0) sec Sodium (137-145) mmol/L Potassium (3.5-5.1) mmol/L Chloride (98-107) mmol/L Carbon Dioxide (22-30) mmol/L Anion Gap mmol/L BUN (9-20) mg/dL Creatinine (0.66-1.25) mg/dL Est GFR (CKD-EPI)AfAm (>60 ml/min/1.73 sqM) Est GFR (CKD-EPI)NonAf (>60 ml/min/1.73 sqM) Glucose (74-99) mg/dL POC Glucose (mg/dL) 105 (70-110) mg/dL POC Glu Recep ID Christy, Nate Plasma Lactic Acid Hadley (0.7-2.0) mmol/L Calcium (8.4-10.2) mg/dL Phosphorus (2.5-4.5) mg/dL Magnesium (1.6-2.3) mg/dL Total Bilirubin (0.2-1.3) mg/dL AST (17-59) U/L ALT (4-49) U/L Alkaline Phosphatase (38-126) U/L Troponin I (0.000-0.034) ng/mL NT-Pro-B Natriuret Pep pg/mL Total Protein (6.3-8.2) g/dL Albumin (3.5-5.0) g/dL Urine Color Urine Appearance (Clear) Urine pH (5.0-8.0) Ur Specific [place] (1.001-1.035) Urine Protein (Negative) Urine Glucose (UA) (Negative) Urine Ketones (Negative) Urine Blood (Negative) Urine Nitrite (Negative) Urine Bilirubin (Negative) Urine Urobilinogen (<2.0) mg/dL Ur Leukocyte Esterase (Negative) Urine RBC (0-5) /hpf Urine WBC (0-5) /hpf Ur Squamous Epith Cells (0-4) /hpf Amorphous Sediment (None) /hpf Hyaline Casts (0-2) /lpf Urine Mucus (None) /hpf Influenza Type A (PCR) (Not Detectd) Influenza Type B (PCR) (Not Detectd) RSV (PCR) (Not Detectd) SARS-CoV-2 (PCR) (Not Detectd) 09/20/23 09/20/23 09/20/23 Range/Units 13:35 13:35 13:35 WBC (3.8-10.6) k/uL RBC (4.30-5.90) m/uL Hgb (13.0-17.5) gm/dL Hct (39.0-53.0) % MCV (80.0-100.0) fL MCH (25.0-35.0) pg MCHC (31.0-37.0) g/dL RDW (11.5-15.5) % Plt Count (150-450) k/uL MPV Neutrophils % % Lymphocytes % % Monocytes % % Eosinophils % % Basophils % % Neutrophils # (1.3-7.7) k/uL Lymphocytes # (1.0-4.8) k/uL Monocytes # (0-1.0) k/uL Eosinophils # (0-0.7) k/uL Basophils # (0-0.2) k/uL PT (10.0-12.5) sec INR (<1.2) APTT (22.0-30.0) sec Sodium 138 (137-145) mmol/L Potassium 3.5 (3.5-5.1) mmol/L Chloride 99 (98-107) mmol/L Carbon Dioxide 32 H (22-30) mmol/L Anion Gap 7 mmol/L BUN 40 H (9-20) mg/dL Creatinine 1.38 H (0.66-1.25) mg/dL Est GFR (CKD-EPI)AfAm 63 (>60 ml/min/1.73 sqM) Est GFR (CKD-EPI)NonAf 54 (>60 ml/min/1.73 sqM) Glucose 111 H (74-99) mg/dL POC Glucose (mg/dL) (70-110) mg/dL POC Glu Recep ID Plasma Lactic Acid [place]ley 1.1 (0.7-2.0) mmol/L Calcium 9.3 (8.4-10.2) mg/dL Phosphorus 4.3 (2.5-4.5) mg/dL Magnesium 1.9 (1.6-2.3) mg/dL Total Bilirubin 2.4 H (0.2-1.3) mg/dL AST 28 (17-59) U/L ALT 24 (4-49) U/L Alkaline Phosphatase 106 (38-126) U/L Troponin I <0.012 (0.000-0.034) ng/mL NT-Pro-B Natriuret Pep 775 pg/mL Total Protein 6.7 (6.3-8.2) g/dL Albumin 3.8 (3.5-5.0) g/dL Urine Color Urine Appearance (Clear) Urine pH (5.0-8.0) Ur Specific [place] (1.001-1.035) Urine Protein (Negative) Urine Glucose (UA) (Negative) Urine Ketones (Negative) Urine Blood (Negative) Urine Nitrite (Negative) Urine Bilirubin (Negative) Urine Urobilinogen (<2.0) mg/dL Ur Leukocyte Esterase (Negative) Urine RBC (0-5) /hpf Urine WBC (0-5) /hpf Ur Squamous Epith Cells (0-4) /hpf Amorphous Sediment (None) /hpf Hyaline Casts (0-2) /lpf Urine Mucus (None) /hpf Influenza Type A (PCR) (Not Detectd) Influenza Type B (PCR) (Not Detectd) RSV (PCR) (Not Detectd) SARS-CoV-2 (PCR) (Not Detectd) 09/20/23 09/20/23 Range/Units 13:35 13:35 WBC (3.8-10.6) k/uL RBC (4.30-5.90) m/uL Hgb (13.0-17.5) gm/dL Hct (39.0-53.0) % MCV (80.0-100.0) fL MCH (25.0-35.0) pg MCHC (31.0-37.0) g/dL RDW (11.5-15.5) % Plt Count (150-450) k/uL MPV Neutrophils % % Lymphocytes % % Monocytes % % Eosinophils % % Basophils % % Neutrophils # (1.3-7.7) k/uL Lymphocytes # (1.0-4.8) k/uL Monocytes # (0-1.0) k/uL Eosinophils # (0-0.7) k/uL Basophils # (0-0.2) k/uL PT (10.0-12.5) sec INR (<1.2) APTT (22.0-30.0) sec Sodium (137-145) mmol/L Potassium (3.5-5.1) mmol/L Chloride (98-107) mmol/L Carbon Dioxide (22-30) mmol/L Anion Gap mmol/L BUN (9-20) mg/dL Creatinine (0.66-1.25) mg/dL Est GFR (CKD-EPI)AfAm (>60 ml/min/1.73 sqM) Est GFR (CKD-EPI)NonAf (>60 ml/min/1.73 sqM) Glucose (74-99) mg/dL POC Glucose (mg/dL) (70-110) mg/dL POC Glu Recep ID Plasma Lactic Acid [place] (0.7-2.0) mmol/L Calcium (8.4-10.2) mg/dL Phosphorus (2.5-4.5) mg/dL Magnesium (1.6-2.3) mg/dL Total Bilirubin (0.2-1.3) mg/dL AST (17-59) U/L ALT (4-49) U/L Alkaline Phosphatase (38-126) U/L Troponin I (0.000-0.034) ng/mL NT-Pro-B Natriuret Pep pg/mL Total Protein (6.3-8.2) g/dL Albumin (3.5-5.0) g/dL Urine Color Yellow Urine Appearance Cloudy (Clear) Urine pH 5.5 (5.0-8.0) Ur Specific [place] 1.023 (1.001-1.035) Urine Protein Trace H (Negative) Urine Glucose (UA) Negative (Negative) Urine Ketones Negative (Negative) Urine Blood Negative (Negative) Urine Nitrite Negative (Negative) Urine Bilirubin Negative (Negative) Urine Urobilinogen 6.0 (<2.0) mg/dL Ur Leukocyte Esterase Negative (Negative) Urine RBC 1 (0-5) /hpf Urine WBC 4 (0-5) /hpf Ur Squamous Epith Cells <1 (0-4) /hpf Amorphous Sediment Occasional H (None) /hpf Hyaline Casts 5 H (0-2) /lpf Urine Mucus Occasional H (None) /hpf Influenza Type A (PCR) Not Detected (Not Detectd) Influenza Type B (PCR) Not Detected (Not Detectd) RSV (PCR) Not Detected (Not Detectd) SARS-CoV-2 (PCR) Not Detected (Not Detectd) - EKG Data -: EKG Interpreted by Me - Radiology Data Radiology results: report reviewed (Chest x-ray is negative for acute disease), image reviewed Critical Care Time Critical Care Time: Yes Total Critical Care Time: 31 Disposition Clinical Impression: Near syncope, Dehydration, Weakness, Hypotension Disposition: ADMITTED IP TO THIS [facility] Condition: Serious Is patient prescribed a controlled substance at d/c from ED?: No Time of Disposition: 16:00
[2023-09-20 12:59] LABS: Glucose,Whole Blood 105 mg/dL (70-110)
[2023-09-20] MEDS: SODIUM CHLORIDE 0.9% 1,000 ML IV STA (13:19)
--- NOTE | 2023-09-20 13:53 | XR ---
EXAMINATION TYPE: XR chest 1V portable DATE OF EXAM: 09/20/2023 1:45 PM CLINICAL INDICATION:Male, 63 years old with history of weakness; COMPARISON: Chest radiographs from 09/03/2023 TECHNIQUE: XR chest 1V portable Frontal view of the chest. FINDINGS: Lungs/Pleura: There is no evidence of pleural effusion, focal consolidation, or pneumothorax. Pulmonary vascularity: Unremarkable. Heart/mediastinum: Cardiomediastinal silhouette is unremarkable. Musculoskeletal: No acute osseous pathology. IMPRESSION: No acute cardiopulmonary disease/process.
[2023-09-20 13:59] LABS: Basophils % (A) 0 %; Eosinophils # (A) 0.2 k/uL (0-0.7); Eosinophils % (A) 2 %; HCT 44.6 % (39.0-53.0); HGB 14.8 gm/dL (13.0-17.5); Lymphocytes # (A) 1.4 k/uL (1.0-4.8); Lymphocytes % (A) 11 %; MCH 29.6 pg (25.0-35.0); MCHC 33.2 g/dL (31.0-37.0); MCV 88.9 fL (80.0-100.0); Mean Platelet Volume 9.2; Monocytes # (A) 0.7 k/uL (0-1.0); Monocytes % (A) 5 %; Neutrophils # (A) 10.6 k/uL (1.3-7.7); Neutrophils % (A) 81 %; Platelet Count 188 k/uL (150-450); RBC 5.01 m/uL (4.30-5.90); RDW 15.6 % (11.5-15.5); WBC 13.2 k/uL (3.8-10.6)
[2023-09-20 14:02] LABS: ALT 24 U/L (4-49); AST 28 U/L (17-59); African American GFR (CKD) 63 (>60 ml/min/1.73 sqM); Albumin 3.8 g/dL (3.5-5.0); Alkaline Phosphatase 106 U/L (38-126); Anion Gap 7 mmol/L; Blood Urea Nitrogen 40 mg/dL (9-20); Calcium 9.3 mg/dL (8.4-10.2); Carbon Dioxide 32 mmol/L (22-30); Chloride 99 mmol/L (98-107); Glucose 111 mg/dL (74-99); INR 1.2 (<1.2); Magnesium 1.9 mg/dL (1.6-2.3); Non-African American GFR(CKD) 54 (>60 ml/min/1.73 sqM); Partial Thromboplastin Time 26.9 sec (22.0-30.0); Phosphorus 4.3 mg/dL (2.5-4.5); Potassium 3.5 mmol/L (3.5-5.1); Prothrombin Time 12.3 sec (10.0-12.5); Sodium 138 mmol/L (137-145); Total Bilirubin 2.4 mg/dL (0.2-1.3); Total Protein 6.7 g/dL (6.3-8.2)
[2023-09-20 14:10] LABS: NT-Pro-B-Type Natriuretic Pept 775 pg/mL
--- NOTE | 2023-09-20 14:25 | CT ---
EXAMINATION TYPE: CT brain wo con CT DLP: 1162.4 mGycm, Automated exposure control for dose reduction was used. DATE OF EXAM: 09/20/2023 2:14 PM COMPARISON: None. CLINICAL INDICATION:Male, 63 years old with history of weakness, Dizziness, vision changes, weakness TECHNIQUE: Brain: Axial CT images of the brain were obtained with coronal and sagittal reformats created and rev iewed. Contrast used: None. Oral contrast used: None. FINDINGS: Brain: Extra-axial spaces: No abnormal extra-axial fluid collections. Ventricular system: Within normal limits Cerebral parenchyma: No acute intraparenchymal hemorrhage or mass effect. The billings-white junction is well differentiated. Scattered hypoattenuating areas are seen within the white matter. Cerebellum: Unremarkable. Mass effect: No evidence of midline shift. Intracranial vasculature: Atherosclerotic calcifications of the intracranial vessels. Soft tissues: Normal. Calvarium/osseous structures: No depressed skull fracture. Paranasal sinuses and mastoid air cells: Mild scattered paranasal sinus disease. Visualized orbits: Orbital contents are intact. IMPRESSION: 1. No acute intracranial process. 2. Nonspecific white matter changes, likely secondary to chronic small vessel ischemic disease. If cl inical concern for ischemia, consider follow-up dedicated MRI brain.
[2023-09-20 15:52] LABS: Amorphous Sediment,Urine Occasional /hpf; Appearance,Urine Cloudy (Clear); Bilirubin,Urine Negative (Negative); Blood,Urine Negative (Negative); Color,Urine Yellow; Glucose,Urine (UA) Negative (Negative); Hyaline Casts,Urine 5 /lpf (0-2); Ketones,Urine Negative (Negative); Leukocyte Esterase,Urine Negative (Negative); Mucus,Urine Occasional /hpf; Nitrite,Urine Negative (Negative); PH, Urine 5.5 (5.0-8.0); Protein,Urine Trace (Negative); RBC,Urine 1 /hpf (0-5); Specific Gravity,Urine 1.023 (1.001-1.035); Squamous Epithelial Cell,Urine <1 /hpf (0-4); WBC,Urine 4 /hpf (0-5)
[2023-09-20] MEDS ORDERED: ONDANSETRON 4 MG/2 ML VIAL IVP PRN (17:33)
[2023-09-20] MEDS ORDERED: HYDROmorphone 1 MG/ML 1 ML SYRINGE IVP PRN (17:33)
[2023-09-20] MEDS ORDERED: NALOXONE 0.4 MG/ML 1 ML VIAL IV PRN (17:33)
[2023-09-20] MEDS: SODIUM CHLORIDE 0.9% 1,000 ML IV SCH (18:04)
[2023-09-21 01:32] VITALS: BP 102/63; PULSE 78; RESP 20; TEMP 97.5
[2023-09-21] MEDS ORDERED: ASPIRIN 81 MG ONE (18:06)
[2023-09-21] MEDS ORDERED: carvediloL 12.5 MG TAB ONE (18:06)
[2023-09-21] MEDS ORDERED: POTASSIUM CHLORIDE ER 20 MEQ TAB.ER PO ONE (18:06)
[2023-09-21] MEDS ORDERED: ATORVASTATIN 80 MG TAB ONE (20:26)
[2023-09-21] MEDS ORDERED: APIXABAN 5 MG TAB ONE (20:26)
[2023-09-22] MEDS ORDERED: APIXABAN 5 MG TAB ONE ×2 (10:45→19:47)
[2023-09-22] MEDS ORDERED: LOSARTAN 50 MG TAB ONE (10:45)
[2023-09-22] MEDS ORDERED: ASPIRIN 81 MG ONE ×2 (10:45)
[2023-09-22] MEDS ORDERED: carvediloL 12.5 MG TAB ONE ×2 (10:45→19:47)
[2023-09-22] MEDS ORDERED: ATORVASTATIN 80 MG TAB ONE (10:46)
[2023-09-22] MEDS ORDERED: POTASSIUM CHLORIDE ER 20 MEQ TAB.ER PO ONE (10:46)
[2023-09-22] MEDS ORDERED: FUROSEMIDE 10 MG/ML 4 ML VIAL ONE (12:40)
[2023-09-23] MEDS ORDERED: ATORVASTATIN 80 MG TAB ONE (08:25)
[2023-09-23] MEDS ORDERED: ASPIRIN 81 MG ONE ×2 (08:25)
[2023-09-23] MEDS ORDERED: carvediloL 12.5 MG TAB ONE ×2 (08:25→19:43)
[2023-09-23] MEDS ORDERED: POTASSIUM CHLORIDE ER 20 MEQ TAB.ER PO ONE ×2 (08:26→12:34)
[2023-09-23] MEDS ORDERED: LOSARTAN 50 MG TAB ONE (09:25)
[2023-09-23] MEDS ORDERED: PANTOPRAZOLE 40 MG TABLET PO ONE (15:14)
[2023-09-23] MEDS ORDERED: METOPROLOL TARTRATE 25 MG TAB ONE (19:43)
[2023-09-23] MEDS ORDERED: APIXABAN 5 MG TAB ONE (19:44)
[2023-09-24] MEDS ORDERED: LOSARTAN 50 MG TAB ONE (08:13)
[2023-09-24] MEDS ORDERED: ASPIRIN 81 MG ONE ×2 (08:13)
[2023-09-24] MEDS ORDERED: EZETIMIBE 10 MG TAB ONE (08:14)
[2023-09-24] MEDS ORDERED: ATORVASTATIN 80 MG TAB ONE (08:14)
[2023-09-24] MEDS ORDERED: POTASSIUM CHLORIDE ER 20 MEQ TAB.ER PO ONE (08:14)
[2023-09-24] MEDS ORDERED: TORSEMIDE 20 MG TAB ONE (08:14)
[2023-09-24] MEDS ORDERED: APIXABAN 5 MG TAB ONE (08:14)
[2023-09-24] MEDS ORDERED: METOPROLOL TARTRATE 25 MG TAB ONE (08:15)
[2023-09-24] MEDS ORDERED: PANTOPRAZOLE 40 MG TABLET PO ONE (08:15)
[2023-10-14 14:14] LABS: African American GFR (CKD) >90; Albumin 3.7 g/dL (3.5-5.0); Albumin/Globulin Ratio 1.3; Anion Gap 6 mmol/L; Blood Urea Nitrogen 30 mg/dL (9-20); Carbon Dioxide 32 mmol/L (22-30); Chloride 100 mmol/L (98-107); Globulin 2.8 g/dL; Glucose 89 mg/dL (74-99); Non-African American GFR(CKD) >90; Potassium 3.2 mmol/L (3.5-5.1); Sodium 138 mmol/L (137-145); Total Protein 6.5 g/dL (6.3-8.2)
[2023-10-14 14:15] LABS: ALT 23 U/L (4-49); AST 26 U/L (17-59); Alkaline Phosphatase 113 U/L (38-126); Total Bilirubin 1.9 mg/dL (0.2-1.3); WBC 11.3 k/uL (3.8-10.6)
[2023-10-14 14:16] LABS: Basophils % (A) 0 %; Eosinophils % (A) 3 %; HCT 46.3 % (39.0-53.0); Lymphocytes % (A) 15 %; MCH 29.4 pg (25.0-35.0); MCHC 32.4 g/dL (31.0-37.0); MCV 90.6 fL (80.0-100.0); Monocytes % (A) 6 %; Neutrophils # (A) 8.4 k/uL (1.3-7.7); Neutrophils % (A) 74.7; Platelet Count 177 k/uL (150-450); RBC 5.11 m/uL (4.30-5.90); RDW 15.2 % (11.5-15.5)
[2023-10-14 14:17] LABS: Eosinophils # (A) 0.3 k/uL (0-0.7); Lymphocytes # (A) 1.7 k/uL (1.0-4.8); Monocytes # (A) 0.6 k/uL (0-1.0)
--- NOTE | 2023-10-30 09:07 | XR ---
EXAMINATION TYPE: XR chest 1V portable DATE OF EXAM: 10/30/2023 HISTORY: Shortness of breath. COMPARISON: 09/20/2023 TECHNIQUE: Single view of the chest is submitted. FINDINGS: Demonstrated are scattered senescent parenchymal change. There is no evidence for focal infiltrate. The heart is stable. Pulmonary venous congestion without overt failure. Hilar and mediastinal structures are within normal limits. Degenerative changes are seen of the dorsal spine. IMPRESSION: 1. Chronic changes without evidence for acute pulmonary disease.
== END 2023-09-24 11:06 | disposition home or self-care (01) ==
LOC: EC 12:23 → 6NMEDSUR 17:34 → 2SICU 21:51 → 6NMEDSUR 22:03
PROVIDERS: ADMIT Internal Medicine; ATTEND Internal Medicine
DX: N17.0 Acute kidney failure with tubular necrosis (principal); I95.9 Hypotension, unspecified; I11.0 Hypertensive heart disease with heart failure; I48.19 Other persistent atrial fibrillation; I50.23 Acute on chronic systolic (congestive) heart failure; I25.5 Ischemic cardiomyopathy; I25.10 Atherosclerotic heart disease of native coronary artery without angina pectoris; G47.33 Obstructive sleep apnea (adult) (pediatric); E86.0 Dehydration; Z79.82 Long term (current) use of aspirin; Z79.01 Long term (current) use of anticoagulants; Z79.899 Other long term (current) drug therapy; Z98.84 Bariatric surgery status; Z11.52 Encounter for screening for COVID-19; Z11.59 Encounter for screening for other viral diseases; Z95.5 Presence of coronary angioplasty implant and graft; Z87.891 Personal history of nicotine dependence
CPT/HCPCS: 36415; 70450; 71045; 80053; 81001; 83605; 83735; 83880; 84100; 84484; 85025; 85610; 85730; 87636; 93005; 93306; 96361; 96374; 99291

== ENCOUNTER 2023-11-02 10:54 | Day surgery (SDC) | payer BC ==
[2023-11-02] MEDS: SODIUM CHLORIDE 0.9% 1,000 ML IV ONE (11:00)
[2023-11-02 11:18] LABS: Basophils % (A) 0 %; Eosinophils # (A) 0.3 k/uL (0-0.7); Eosinophils % (A) 3 %; HCT 45.6 % (39.0-53.0); HGB 14.8 gm/dL (13.0-17.5); Lymphocytes # (A) 1.5 k/uL (1.0-4.8); Lymphocytes % (A) 14 %; MCH 29.6 pg (25.0-35.0); MCHC 32.4 g/dL (31.0-37.0); MCV 91.2 fL (80.0-100.0); Mean Platelet Volume 7.8; Monocytes # (A) 0.5 k/uL (0-1.0); Monocytes % (A) 4 %; Neutrophils % (A) 77 %; Platelet Count 205 k/uL (150-450); RBC 5.01 m/uL (4.30-5.90); RDW 14.6 % (11.5-15.5); WBC 10.5 k/uL (3.8-10.6)
[2023-11-02 11:37] LABS: ALT 19 U/L (4-49); African American GFR (CKD) >90 (>60 ml/min/1.73 sqM); Anion Gap 8 mmol/L; Blood Urea Nitrogen 20 mg/dL (9-20); Calcium 9.1 mg/dL (8.4-10.2); Carbon Dioxide 33 mmol/L (22-30); Chloride 102 mmol/L (98-107); Glucose 109 mg/dL (74-99); Non-African American GFR(CKD) >90 (>60 ml/min/1.73 sqM); Sodium 143 mmol/L (137-145); Total Bilirubin 1.9 mg/dL (0.2-1.3)
[2023-11-02 11:38] LABS: Total Protein 7.4 g/dL (6.3-8.2)
[2023-11-02 11:39] LABS: AST 40 U/L (17-59); Alkaline Phosphatase 95 U/L (38-126); Potassium 4.3 mmol/L (3.5-5.1)
[2023-11-02] MEDS ORDERED: PROPOFOL 10 MG/ML 20 ML VIAL IV ONE (13:45)
[2023-11-02] MEDS ORDERED: LIDOCAINE 1% INJ 10MG/ML (20 ML MDV) ONE (13:45)
[2023-11-02] MEDS ORDERED: SUCCINYLCHOLINE CHLORIDE 200 MG/10 ML VIAL IV ONE (13:45)
[2023-11-02] MEDS ORDERED: fentaNYL (PF) 50 MCG/ML 2 ML AMP ONE (13:45)
[2023-11-02] MEDS ORDERED: HEPARIN SODIUM,PORCINE 10,000 UNIT/ML 1 ML VIAL ONE (13:45)
[2023-11-02] MEDS ORDERED: PHENYLEPHRINE 10 MG/ML VIAL ONE (13:45)
[2023-11-02] MEDS ORDERED: MIDAZOLAM 2 MG/2 ML VIAL ONE (13:45)
[2023-11-02] MEDS ORDERED: HEPARIN SODIUM,PORCINE 5,000 UNIT/ML 1 ML VIAL ONE (13:45)
[2023-11-02] MEDS ORDERED: PHENYLEPHRINE-0.9% NACL SYG 1,000 MCG/10 ML SYRINGE ONE (13:45)
[2023-11-02] MEDS: HEPARIN SODIUM,PORCINE (1 ML) 2,500 UNIT in SODIUM CHLORIDE 0.9% 250 ML IRRIGATION ONE (14:00)
[2023-11-02] MEDS: HEPARIN SODIUM,PORCINE 10,000 UNIT in SODIUM CHLORIDE 0.9% 1,000 ML IRRIGATION ONE (14:00)
[2023-11-02] MEDS: LIDOCAINE 1% INJ 10MG/ML (20 ML MDV) SQ ONE (14:36)
[2023-11-02] MEDS: HEPARIN SOD,PORK IN 0.45% NACL 25,000 UNIT in 0.45% NACL 1 250ML.BAG IV ONE (15:00)
[2023-11-02] MEDS: IOPAMIDOL-370 100ML BTL INJ ONE ×2 (16:07)
--- NOTE | 2023-11-02 17:19 | P.HPCAR ---
History of Present Illness This is Dr. Valderrama dictating an H/P on this patient The patient was interviewed and examined IMPRESSION / ASSESSMENT: Symptomatic persistent atrial fibrillation despite rate control, failed treatment Symptoms of tiredness fatigue shortness of breath lack of energy Increased BMI of 46 Severe obstructive sleep apnea CAD status post coronary stenting of the LAD and left circumflex LVH History of gastric sleeve surgery in 2013 Normal TSH PLAN: Ablation for atrial fibrillation with PVI, left atrial septal ablation and left atrial roof ablation Continue anticoagulation Stop Cardizem thereafter once in sinus rhythm Secondary prevention of atrial fibrillation including significant weight loss, regular exercise of moderate intensity, 210 minutes/week Use CPAP mask and treat sleep apnea transfer to [facility] Patient remains in atrial fibrillation. He has failed treatment for atrial fibrillation. His main complaint is tiredness fatigue and lack of energy despite being rate controlled He has known coronary artery disease status post coronary stenting to the mid LAD and proximal obtuse marginal in the past He has a history of hypertension Increased BMI 2D echo has shown left ventricular hypertrophy with left atrial enlargement He has obstructive sleep apnea with severe AHI of 36 Prediabetes hemoglobin A1c of 6.1 ROS: No fever chills or rigors, no cough, phlegm or expectoration, no nausea, vomiting or diarrhea, no hematuria, dysuria, no musculoskeletal complaints, no strokes or seizures, no skin lesions. EXAMINATION: 134/81 mmHg pulse rate in the 70s rate controlled atrial fibrillation Normal temperature No JVD Clear lungs no rhonchi no crackles Heart sounds irregular but no murmurs Increased BMI 47 No lower extremity edema Soft abdomen REVIEW OF LABS, ECG & MEDICAL DATA White count 10,000, hemoglobin 14.8, platelet count 205,000 Normal electrolytes Sodium 143, potassium 4.3 BUN 20 and creatinine 0.78 Total bilirubin 1.9 Normal AST and ALT Normal TSH 1.3 Physical Exam Vitals: Vital Signs Temp Pulse Resp BP Pulse Ox 11/02/23 11:05 98.2 F 73 16 134/81 94 L Intake and Output 11/02/23 11/02/23 11/02/23 06:59 14:59 22:59 Intake Total 410 0 Balance 410 0 Intake: IV 410 0 Other: Weight 153.8 kg Past Medical History Past Medical History: Atrial Fibrillation, Coronary Artery Disease (CAD), Diabetes Mellitus, Hyperlipidemia, Hypertension, Myocardial Infarction ([place]), Osteoarthritis (OA), Sleep Apnea/CPAP/BIPAP Additional Past Medical History / Comment(s): See Dr. Valderrama's H+P."I thought I had pneumonia and they did an EKG at [facility] and said I was in A-Fib 04/11"diet controlled diabetes "Borderline diabetes." Uses C-PAP. difficulty swallow-has had issue for years per pt. Patient states he is not Diabetic Last Myocardial Infarction Date:: 11/05 History of Any Multi-Drug Resistant Organisms: None Reported Past Surgical History: Appendectomy, Bariatric Surgery, Heart Catheterization, Heart Catheterization With Stent, Hernia Repair Additional Past Surgical History / Comment(s): gastric sleeve 2015; stents X2 placed October 2019, right total knee and lt knee replacement, Past Anesthesia/Blood Transfusion Reactions: No Reported Reaction Additional Past Anesthesia/Blood Transfusion Reaction / Comment(s): hard for p atient to lay flat on back. No hx of blood transfusion. Date of Last Stent Placement:: 10/2019 Smoking Status: Former smoker - Past Family History Mother Family Medical History: Cancer Additional Family Medical History / Comment(s): throat cancer. Physical Examination Vital Signs Temp Pulse Resp BP Pulse Ox 11/02/23 11:05 98.2 F 73 16 134/81 94 L Intake and Output 11/02/23 11/02/23 11/02/23 06:59 14:59 22:59 Intake Total 410 0 Balance 410 0 Intake: IV 410 0 Other: Weight 153.8 kg Results 11/02/23 11:00 11/02/23 11:00 Cardiac Enzymes 11/02/23 Range/Units 11:00 AST 40 (17-59) U/L CBC 11/02/23 Range/Units 11:00 WBC 10.5 (3.8-10.6) k/uL RBC 5.01 (4.30-5.90) m/uL Hgb 14.8 (13.0-17.5) gm/dL Hct 45.6 (39.0-53.0) % Plt Count 205 (150-450) k/uL Comprehensive Metabolic Panel 11/02/23 Range/Units 11:00 Sodium 143 (137-145) mmol/L Potassium 4.3 (3.5-5.1) mmol/L Chloride 102 (98-107) mmol/L Carbon Dioxide 33 H (22-30) mmol/L BUN 20 (9-20) mg/dL Creatinine 0.78 (0.66-1.25) mg/dL Glucose 109 H (74-99) mg/dL Calcium 9.1 (8.4-10.2) mg/dL AST 40 (17-59) U/L ALT 19 (4-49) U/L Alkaline Phosphatase 95 (38-126) U/L Total Protein 7.4 (6.3-8.2) g/dL Albumin 4.0 (3.5-5.0) g/dL Current Medications Generic Name Dose Route Start Last Admin Trade Name Freq PRN Reason Stop Dose Admin Aspirin 81 mg 11/03/23 09:00 Aspirin 81 Mg PO QAM [facility] Atorvastatin Calcium 80 mg 11/03/23 09:00 Atorvastatin 80 Mg Tab PO QAM [facility] Ezetimibe 10 mg 11/03/23 09:00 Ezetimibe 10 Mg Tab PO QAM [facility] Sodium Chloride 1,000 mls @ 20 mls/hr 11/02/23 06:06 Saline 0.9% IV 12/02/23 06:05 .Q24H [facility] Losartan Potassium 50 mg 11/03/23 09:00 Losartan 50 Mg Tab PO QAM [facility] Metoprolol Tartrate 25 mg 11/02/23 21:00 Metoprolol Tartrate 25 Mg Tab PO BID [facility] Potassium Chloride 20 meq 11/03/23 09:00 Potassium Chloride Er 20 Meq Tab.Er [facility] Rivaroxaban 20 mg 11/03/23 09:00 Rivaroxaban 20 Mg Tab PO QAM [facility] Protocol Torsemide 40 mg 11/03/23 09:00 Torsemide 20 Mg Tab [facility] [place] [facility] Intake and Output 11/02/23 11/02/23 11/02/23 06:59 14:59 22:59 Intake Total 410 0 Balance 410 0 Intake: IV 410 0 Other: Weight 153.8 kg Patient Weight 11/03/23 06:59 Weight 153.8 kg 11/02/23 11:00 11/02/23 11:00
--- NOTE | 2023-11-02 17:22 | P.EPPROC ---
- EP Procedure Note Electrophysiology Procedure Note: PROCEDURE A. fib ablation with PVI, left atrial roof ablation and left atrial septal ablation DIAGNOSIS Persist atrial fibrillation, symptomatic, refractory to therapy RESULT No left atrial appendage mass seen on intracardiac echo Successful A. fib ablation/pulmonary vein isolation of all veins using cryo- ablation Complete entrance block in all 4 veins confirmed No evidence for phrenic nerve injury Left atrial septal ablation Left atrial roof ablation, left left atrial roof Esophageal deflection YES Electrical cardioversion with a synchronized shock across the chest YES, successful maintain sinus rhythm thereafter with PACs PROCEDURE DETAILS Written informed consent prior to procedure. Patient brought to the EP lab. General anesthesia given. Heparin administered. A city maintained above 300 seconds Both groins prepped and draped per protocol and venous sheaths placed. Esophagus intubated, circa catheter for temperature monitoring an endoscope for possible esophageal deflection. Phrenic nerve monitoring performed. Esophageal temperature monitoring performed. Esophageal deflection performed if circa catheter overlapping with the balloon or circa temperature less than 27.5C Intracardiac echocardiography performed. Pericardium evaluated. Left atrial appendage evaluated. Left atrium evaluated along with pulmonary veins Transseptal catheterization performed under fluoroscopic guidance and intracardiac echo guidance Cryoablation sheath exchanged, balloon catheter along with achieve catheter placed in the left atrium. Pulmonary veins isolated in the following sequence: Left superior pulmonary vein followed by left inferior pulmonary vein, followed by right inferior pulmonary vein and lastly right superior pulmonary vein. Phrenic nerve stimulation along with capture thresholds within the SVC and right superior pulmonary vein to identify the phrenic nerve proximity to the cryo- balloon. Pulmonary veins isolated and confirmed with entrance and exit block. Phrenic nerve integrity confirmed at the end of the procedure Ablation of the left atrial roof performed with sequential lesions from the left superior to the right superior pulmonary veins. Ablation of the electrograms confirmed Ablation of the left atrial septum performed with cannulation of the superior branch of the right inferior and the inferior branch of the right superior vein to achieve ablation of the posterior septum of the left atrium. Ablation of electrograms confirmed Electrical cardioversion performed for persistence of atrial fibrillation despite successful ablation. Diagnostic catheters for the high right atrium, His bundle, coronary sinus placed. LA and RA pressures recorded RA pressure: 9/2/6 LA pressure: 18/4/10 Diagnostic EP study with coronary sinus pacing and recording Baseline measurements: In sinus rhythm QRS 104 ms, QT interval 373 ms AH 107 ms and HV interval 64 ms Venous sheaths were removed and hemostasis assured with a closure device. Patient extubated and transferred to recovery Increase procedural time During ablation multiple attempts had to be made to move the esophagus a safe distance of the from the pulmonary vein draining cryoablation, to avoid excessive thermal cooling of the esophagus This took extra time and effort to keep the esophagus a safe distance away from the cryoablation balloon. Very large left atrium with large pulmonary veins. Very long left atrial roof requiring multiple sequential ablations for completion 100 J shock in the AP configuration failed to cardiovert the patient. To simultaneous 200 J shocks had to be delivered 1 in the AP configuration and 1 in the anterior apical configuration to successfully cardiovert the patient to sinus rhythm PROCEDURES PERFORMED Diagnostic EP study CS pacing and recording Left and right transseptal catheterization Catheter the mapping of the tachycardia Intracardiac echocardiography Pulmonary vein isolation with transseptal and comprehensive EPS, 54767 Extended procedure duration Left atrial roof line, +37542 Linear ablation, left atrium, +53391 Electrical cardioversion with a synchronized shock across the chest 80035
[2023-11-02 17:44] LABS: Glucose,Whole Blood 79 mg/dL (70-110)
[2023-11-02 20:30] LABS: Glucose,Whole Blood 156 mg/dL (70-110)
[2023-11-02] MEDS: METOPROLOL TARTRATE 25 MG TAB PO SCH (20:38)
[2023-11-02] MEDS: SODIUM CHLORIDE 0.9% 1,000 ML IV SCH (20:38)
[2023-11-03 07:44] VITALS: BP 127/76; PULSE 78; RESP 18; TEMP 98.1
[2023-11-03] MEDS: RIVAROXABAN 20 MG TAB PO SCH (07:48)
[2023-11-03] MEDS: ACETAMINOPHEN TAB 325 MG TAB PO PRN (07:48)
[2023-11-03] MEDS: LOSARTAN 50 MG TAB PO SCH (07:49)
[2023-11-03] MEDS: ATORVASTATIN 80 MG TAB PO SCH (07:49)
[2023-11-03] MEDS: POTASSIUM CHLORIDE ER 20 MEQ TAB.ER PO SCH (07:49)
[2023-11-03] MEDS: ASPIRIN 81 MG PO SCH (07:49)
[2023-11-03] MEDS: EZETIMIBE 10 MG TAB PO SCH (07:49)
[2023-11-03] MEDS: TORSEMIDE 20 MG TAB PO SCH (07:49)
[2023-11-03] MEDS: COLCHICINE 0.6 MG EACH PO SCH (09:35)
--- NOTE | 2023-11-03 09:43 | P.DS ---
Providers Attending physician: Jann Valderrama [facility] Course: Patient is sitting comfortably in a chair eating breakfast He denies any chest discomfort. Yesterday he said his throat was sore but today it is not No dysphagia no pain while swallowing No shortness of breath he was comfortable at night no cough expectoration On examination blood pressure 127/76 mmHg pulse rate in the 70s afebrile Breath sounds are clear no rhonchi no crackles Heart sounds are normal occasional premature beats noted Impression Persistent atrial fibrillation failed medical treatment symptomatic Status post successful antral isolation of the pulmonary veins, left atrial septal ablation and left atrial roof ablation Electrical cardioversion required a total of 400 J energy for successful cardioversion He has maintained sinus rhythm all through the night with occasional PACs He is doing well Plan Discharge home on current medications including metoprolol 25 g twice daily and colchicine 0.6 mg p.o. daily for 2 weeks Continue anticoagulation uninterrupted Follow-up in the office in [address] Hernandez [facility] Plan - Discharge Summary Discharge Rx Participant: Yes New Discharge Prescriptions: New Colchicine 0.6 mg PO DAILY #15 tablet Continue Ezetimibe [Zetia] 10 mg PO QAM Aspirin 81 mg PO QAM Potassium Chloride ER [K-Dur 20] 20 meq PO QAM Torsemide [Demadex] 40 mg PO QAM Losartan Potassium 50 mg PO QAM Rivaroxaban [Xarelto] 20 mg PO QAM Albuterol Sulfate [Albuterol Sulfate Hfa] 1 puff INHALATION RT-Q4H PRN PRN Reason: Shortness Of Breath Nitroglycerin Sl Tabs [Nitrostat] 0.4 mg SL Q5M PRN PRN Reason: Chest Pain Atorvastatin [Lipitor] 80 mg PO QAM Metoprolol Tartrate 25 mg PO BID Discharge Medication List Ezetimibe [Zetia] 10 mg PO QAM 06/11/22 [History] Albuterol Sulfate [Albuterol Sulfate Hfa] 1 puff INHALATION RT-Q4H PRN 03/14/23 [History] Atorvastatin [Lipitor] 80 mg PO QAM 03/14/23 [History] Nitroglycerin Sl Tabs [Nitrostat] 0.4 mg SL Q5M PRN 03/14/23 [History] Aspirin 81 mg PO QAM 06/29/23 [History] Potassium Chloride ER [K-Dur 20] 20 meq PO QAM 09/03/23 [History] Torsemide [Demadex] 40 mg PO QAM 09/03/23 [History] Losartan Potassium 50 mg PO QAM 10/28/23 [History] Metoprolol Tartrate 25 mg PO BID 10/28/23 [History] Rivaroxaban [Xarelto] 20 mg PO QAM 10/28/23 [History] Colchicine 0.6 mg PO DAILY #15 tablet 11/03/23 [Rx] Follow up Appointment(s)/Referral(s): Kimmy Hernandez MD [STAFF PHYSICIAN] - 11/10/23 4:15 pm Activity/Diet/Wound Care/Special Instructions: Post EP study - Ablation instructions 1. Keep access sites dry for 2 days. 2. No heavy lifting or straining for 2 days. 3. Avoid bending the hips repeatedly for 2 days. 4. You may go up and down stairs slowly Call if the following is noted 1. Bleeding, increasing swelling or pain at the access sites. 2. Increasing chest discomfort, especially upon taking a deep breath. 3. Increasing shortness of breath, at rest or with exertion. 4. Undue cough / phlegm 5. Difficulty or pain while swallowing. 6. Pain or change in color in the extremities. 7. Fever, chills, rigors. 8. Increasing headache or neurologic symptoms. 9. Dizziness, fainting, palpitations Stop diltiazem Continue Eliquis Continue all other medications as before Fish oil Further recommendations Weight reduction recommended as treatment for atrial fibrillation. Patient's BMI is 47 Obstructive sleep apnea treatment for management of atrial fibrillation Regular exercise moderate intensity 30 minutes total of 210 minutes/week for treatment of atrial fibrillation Discharge Disposition: HOME SELF-CARE
== END 2023-11-03 10:43 | disposition home or self-care (01) ==
LOC: CATHEP 10:54 → 6NMEDSUR 16:33 → CATHEP 11-03 10:43
PROVIDERS: ATTEND Internal Medicine Clinical Cardiac Electrophysiology
DX: I48.19 Other persistent atrial fibrillation (principal); I48.91 Unspecified atrial fibrillation; I25.10 Atherosclerotic heart disease of native coronary artery without angina pectoris; Z95.5 Presence of coronary angioplasty implant and graft; E78.5 Hyperlipidemia, unspecified; G47.33 Obstructive sleep apnea (adult) (pediatric); I10 Essential (primary) hypertension; E66.01 Morbid (severe) obesity due to excess calories; Z68.43 Body mass index [BMI] 50.0-59.9, adult; Z98.84 Bariatric surgery status; Z87.891 Personal history of nicotine dependence; Z82.49 Family history of ischemic heart disease and other diseases of the circulatory system; Z79.01 Long term (current) use of anticoagulants; Z79.82 Long term (current) use of aspirin; Z79.899 Other long term (current) drug therapy
CPT/HCPCS: 80053; 84443; 85025; 86850; 86900; 86901; 92960; 93005; 93656; 93657

== ENCOUNTER → 2024-07-27 | Day surgery (SDC) | payer BC ==
[2024-07-26 10:21] VITALS: BMI 47.4
[~2024-07-27] MED LIST changes: -ACETAMINOPHEN TAB 500 MG TAB PO PRN; +ALPRAZolam 0.25 MG TAB PO PRN; +ALPRAZolam 0.5 MG TAB PO PRN; +ASPIRIN 81 MG PO SCH; +ATORVASTATIN 80 MG TAB PO SCH; -DEXAMETHASONE SOD PHOSPHATE 4 MG/ML 1 ML VIAL IV ONE; +EZETIMIBE 10 MG TAB PO SCH; -HYDROmorphone 0.5 MG/0.5 ML SYRINGE IVP PRN; +LOSARTAN 50 MG TAB PO SCH; -MELOXICAM 7.5 MG TAB PO PRN; +METOPROLOL TARTRATE 25 MG TAB PO SCH; -MIDAZOLAM 2 MG/2 ML VIAL IV PRN; +NITROGLYCERIN SL TABS 0.4 MG TAB SUBLINGUAL PRN; -ONDANSETRON 4 MG/2 ML VIAL IVP ONE; +RX INFO: IV CONTRAST WAS GIVEN 1 EACH MISC MISCELLANE PRN; -SCOPOLAMINE 1 MG/72 HR PATCH TRANSDERM ONE; +SODIUM CHLORIDE 0.9% 1,000 ML IV SCH; -TRANEXAMIC 1,000 MG/100ML-NACL 1,000 MG in SALINE 1 100ML.BAG IVPB PRN; -ceFAZolin 3 GM in SODIUM CHLORIDE 0.9% 100 ML IVPB PRN
[2024-07-27 09:22] VITALS: TEMP 97.7
[2024-07-27] MEDS: IV FLUID CONTINUATION 1,000 ML IV ONE (09:28)
[2024-07-27] MEDS: ASPIRIN 325 MG TAB PO STA (09:36)
[2024-07-27] MEDS: ATORVASTATIN 80 MG TAB PO STA (09:37)
[2024-07-27] MEDS: SODIUM CHLORIDE 0.9% 1,000 ML in EMPTY BAG 1 BAG IV SCH (09:37)
[2024-07-27] MEDS: fentaNYL (PF) 50 MCG/1 ML VIAL IVP ONE (11:09)
[2024-07-27] MEDS: HEPARIN SODIUM,PORCINE 10,000 UNIT in SODIUM CHLORIDE 0.9% 1,000 ML IRRIGATION PRN (11:16)
[2024-07-27] MEDS: HEPARIN SODIUM,PORCINE (1 ML) 2,500 UNIT in SODIUM CHLORIDE 0.9% 250 ML IRRIGATION PRN (11:17)
[2024-07-27] MEDS: LIDOCAINE 1% INJ 10MG/ML (20 ML MDV) SQ ONE (11:19)
[2024-07-27] MEDS: VERAPAMIL 2.5 MG/ML 4 ML VIAL INTRAARTER ONE (11:20)
[2024-07-27] MEDS: HEPARIN SODIUM 1,000 UN/ML (10ML VL) IVP ONE (11:24)
[2024-07-27] MEDS: IOPAMIDOL-370 100ML BTL INTRATHECA ONE (11:43)
--- NOTE | 2024-07-27 11:50 | P.CARDCATH ---
Date of Procedure: 07/27/24 Description of Procedure: Cardiac Catheterization: The patient is a 64-year-old male with known history of multivessel stenting, hypertension, diabetes and hyperlipidemia who recently had episodes of angina pectoris. Recommendations were made regarding cardiac catheterization, the risks and the complications were discussed with the patient who is in full understanding and agreement. Procedure Description: Patient was brought to laboratory geneticist in fasting semi-sedated state after receiving Fentanyl and Benadryl achieiving moderate conscious sedated state. Using Xylocaine Anesthesia and modified Seldinger technique, a 6-Dutch sheath was introduced in the right radial artery . Subsequently, selective coronary angiography was performed using a 5-Dutch 3.5 bend Racheal catheter. Multiple views of the coronary artery including hemiaxial views were obtained. The 5 Dutch pigtail catheter was used to cross the aortic valve and LVEDP was calculated. Following that, catheter and sheath were removed. Hemostasis was obtained with deployment of vascular band . There was no immediate complication. Patient was returned to room in stable condition. Of note, the patient received a total of 5000 units of intravenous heparin as well as intra-arterial verapamil. Findings: Fluoroscopy: Calcification of the coronary arteries was noted. Left main: This is a large size vessel, bifurcating into LAD and left circumflex, left main has no obstructive disease LAD: This is a large size vessel, reaching to the apex with a wraparound apex segment giving rise to 3 diagonal branch. The second 0ne has a 90% stenosis at the ostium with no progression compared to 2020. The stented segment has no evidence of obstructive disease. Left circumflex: This is a large nondominant vessel giving rise to 2 obtuse marginal branch. The stented segment in the mid and distal left circumflex is patent with 20% in-stent restenosis and no significant progression of disease RCA: This is a large dominant vessel, bifurcating distally to PDA and PLV the mid right coronary artery has a complex plaque with an area of stenosis of about 50% with no progression Left Ventriculogram: Not performed Hemodynamics: There was no gradient across the aortic valve, LVEDP was 18-22 mmHg Conclusion: 1. Calcified coronary arteries 2. Patent stent to the LAD and left circumflex 3. Significant disease in the ostium of diagonal 2 with no progression 4. Moderate disease in the mid RCA with no changes Recommendations: I have recommended to continue medical therapy with the present regimen and depending on his progress further recommendations will be made. The findings and the recommendations were discussed with the patient and the family and they were in full understanding and agreement. Duration of sedation is 16 minutes.
[2024-07-27 13:48] VITALS: RESP 16
[2024-07-27 13:57] VITALS: BP 149/77; PULSE 65
== END | disposition home or self-care (01) ==
LOC: CATHCVL 08:55
PROVIDERS: ATTEND Internal Medicine Interventional Cardiology
DX: I25.10 Atherosclerotic heart disease of native coronary artery without angina pectoris (principal); I10 Essential (primary) hypertension; E11.9 Type 2 diabetes mellitus without complications; I25.5 Ischemic cardiomyopathy; I48.11 Longstanding persistent atrial fibrillation; E78.2 Mixed hyperlipidemia; G47.33 Obstructive sleep apnea (adult) (pediatric); Z87.891 Personal history of nicotine dependence; Z79.82 Long term (current) use of aspirin; Z79.899 Other long term (current) drug therapy; Z95.5 Presence of coronary angioplasty implant and graft
CPT/HCPCS: 99152; 93458; C1769 ×2; C1894; J1644 ×3; J2003; Q9967; J3010